=== PATIENT | female | born 1985 | race Caucasian/White ===

== ENCOUNTER 2017-01-10 12:10 | Inpatient (IN) | payer OTHER ==
[2017-01-10 13:05] VITALS: BMI 29.9
[2017-01-10] MEDS ORDERED: CITRIC ACID/SODIUM CITRATE 30 ML UNIT-DOSE CUP PO ONE (14:16)
[2017-01-10] MEDS ORDERED: ELECTROLYTE-148 SOLN 1,000 ML IV SCH (14:30)
--- NOTE | 2017-01-10 15:02 | HP ---
Past Medical History - Primary Care Physician PCP:: Trino Alonso - Admission Chief Complaint: 39 weeks ,previous c/s , request of repeat c/s History Source: Patient Limitations to Obtaining History: No Limitations - Past Medical History ...: 8 ...Para: 4 ...Term: 4 ...: 0 ...Spon : 1 ...Induced : 2 ...Multiple Gestation: 0 ...LMP: 04/11/16 ...EDC by Dates: 01/16/17 ...EDC by Sono: 01/17/17 Heme/Onc: Yes: Anemia - Past Surgical History Past Surgical History: Yes: Hx Myomectomy: No Hx Transabdominal Cerclage: No - Smoking History Smoking history: Former smoker Have you smoked in the past 12 months: No Aproximately how many cigarettes per day: 1 - Alcohol/Substance Use Hx Alcohol Use: No History of Substance Use: reports: Cocaine - Social History Usual Living Arrangement: Yes: With Spouse History of Recent Travel: No Home Medications - Allergies Allergies/Adverse Reactions: Allergies Allergy/AdvReac Type Severity Reaction Status Date / Time No Known Allergies Allergy Verified 01/08/17 13:37 - Home Medications Home Medications: Ambulatory Orders Vit/Iron Fumarate/FA [ Tablet] 1 tab PO DAILY 10/04/16 Family Disease History - Family Disease History Family Disease History: Other: Father ([employer]) Review of Systems - Review of Systems Eyes: reports: No Symptoms HENT: reports: No Symptoms Neck: reports: No Symptoms Cardiovascular: reports: No Symptoms Respiratory: reports: No Symptoms Genitourinary: reports: No Symptoms Breasts: reports: No Symptoms Reported Musculoskeletal: reports: No Symptoms Integumentary: reports: No Symptoms Endocrine: reports: No Symptoms Hematology/Lymphatic: reports: No Symptoms Psychiatric: reports: No Symptoms Physical Exam - Maternity Vital Signs: Vital Signs Temperature 98.2 F 01/10/17 12:37 Pulse Rate 88 01/10/17 12:37 Respiratory Rate 20 01/10/17 12:37 Blood Pressure 116/70 01/10/17 12:37 O2 Sat by Pulse Oximetry (%) - Abdominal Exam/OB Fundal Height: 40 Number of Fetuses: Single Presentation: Vertex Regularity: Irritability Intensity: Unaware Monitor Mode: External Heart Rate Location: [facility] Category: I Accelerations: Uniform Decelerations: None - Vaginal Exam/OB Vaginal Bleediing: No Dilatation (cm): closed Effacement (%): 0 Amniotic Membrane Status: Intact Presentation: Vertex/Position Station: -3 - Physical Exam Musculoskeletal: Yes: WNL Edema: Yes Edema: LLE: Trace, RLE: Trace Deep Tendon Reflex Grade: Normal +2 Psychiatric: Yes: WNL Hemorrhage Risk Assessment - Risk Factors Medium Risk Factors: Yes: Prior , uterine surgery,or multiple laparotomies Risk Score: 1 Risk Level: Medium Risk Problem List - Problems (1) with 39 completed weeks gestation Code(s): Z3A.39 - 39 WEEKS GESTATION OF (2) Previous section complicating Code(s): O34.21 - MATERNAL CARE FOR SCAR FROM PREVIOUS * DO NOT USE * Assessment/Plan admit for repeat c/s rba discussed
[2017-01-10] MEDS ORDERED: METHYLERGONOVINE MALEATE 0.2 MG/1 ML AMP IM PRN (15:05)
[2017-01-10] MEDS ORDERED: BENZOCAINE 28 GM HEMORRHOIDAL OINTMENT PR PRN (15:05)
[2017-01-10] MEDS ORDERED: IBUPROFEN 800 MG/8 ML IJ IVPB PRN (15:05)
[2017-01-10] MEDS ORDERED: BENZOCAINE 20% 57 GM BOTTLE TP PRN (15:05)
[2017-01-10] MEDS ORDERED: WITCH HAZEL 50% (TUCKS) 40 PAD/JAR PAD TP PRN (15:05)
[2017-01-10] MEDS ORDERED: diphenhydrAMINE HCL 25 MG CAPSULE (FP) PO PRN (15:05)
[2017-01-10] MEDS ORDERED: DEXTROSE 5%-LACTATED RINGERS 1,000 ML IV SCH (15:15)
[2017-01-10] MEDS ORDERED: OXYTOCIN 20 UNITS in 0.9% NS 1,000 ML IV SCH (15:15)
[2017-01-10 17:45] LABS: URINE MARIJUANA THC NEGATIVE ng/ml (CUTOFF=50)
[2017-01-10] MEDS: CEFAZOLIN (PRE-DOCKED) 50 ML IVPB SCH (18:03)
--- NOTE | 2017-01-10 18:30 | CON.PSY ---
Psychiatry Consult Chief Complaint: i am ok, I spoke to my therapiast, i am going to see them next week. i feel ok. - Previous Psychiatric Treatment Outpatient: Less than 6 mos ago Inpatient: Within the last 12 months, One prior admission - Previous Substance Abuse Treatment Outpatient: None Inpatient: None - Reason for Previous Treatment Reason for Previous Treatment: Major Depression - Family History Family History: Unremarkable - Current Medications Current Medications: Active Medications Benzocaine (Americaine Ointment -) 1 applic [place] PRN PRN PRN Reason: PAIN Benzocaine (Americaine 20% [place] -) 1 spray TP PRN PRN PRN Reason: PAIN Bisacodyl (Dulcolax Suppository -) 10 mg RC PRN PRN PRN Reason: CONSTIPATION Diphenhydramine HCl (Benadryl -) 25 mg PO Q8H PRN PRN Reason: FOR ITCHING Diphtheria/Tetanus/Acell Pertussis (Boostrix -) 0.5 ml IM .ONCE ONE Stop: 01/11/17 18:01 Enoxaparin Sodium (Lovenox -) 40 mg SQ DAILY [facility] Parenteral Electrolytes (Plasma-Lyte 148 -) 1,000 mls @ 125 mls/hr IV ASDIR [facility] Last Admin: 01/10/17 12:15 Dose: 125 mls/hr Cefazolin Sodium (Ancef 1gm Ivpb (Pre-Docked)) 50 mls @ 100 mls/hr IVPB Q8H-IV [facility] Stop: 01/11/17 02:29 Last Admin: 01/10/17 18:03 Dose: 100 mls/hr Dextrose/Lactated Ringer's (D5-Lr -) 1,000 mls @ 125 mls/hr IV ASDIR [facility] Oxytocin/Sodium Chloride (Normal Saline+20 Units Oxytocin -) 1,000 mls @ 125 mls/hr IV ASDIR EDDA Stop: 01/10/17 23:14 Last Admin: 01/10/17 15:38 Dose: 125 mls/hr Ibuprofen (Motrin -) 600 mg PO Q4H PRN PRN Reason: PAIN Ibuprofen (Caldolor Injection -) 800 mg IVPB Q6H PRN PRN Reason: PAIN Stop: 01/11/17 03:06 Methylergonovine Maleate (Methergine Injection -) 0.2 mg IM Q4H PRN PRN Reason: EXCESSIVE BLEEDING Oxycodone HCl (Roxicodone -) 5 mg PO Q4H PRN PRN Reason: PAIN LEVEL 1-5 Oxycodone HCl (Roxicodone -) 10 mg PO Q4H PRN PRN Reason: PAIN LEVEL 6-10 Multivit/Folic Acid/Iron ( Vitamins (Sjr) -) 1 tab PO DAILY EDDA Senna/Docusate Sodium (Pericolace -) 2 tablet PO HS PRN PRN Reason: CONSTIPATION Simethicone (Mylicon -) 80 mg PO Q4H PRN PRN Reason: GAS Witch Oralia/Glycerin (Tucks Pads -) 1 pad TP PRN PRN PRN Reason: PAIN - Allergies Allergies: Allergies Allergy/AdvReac Type Severity Reaction Status Date / Time No Known Allergies Allergy Verified 01/08/17 13:37 - Current Living Status Usual Living Arrangement: With Spouse - Current Mental Status Evaluation Appearance: Well Groomed Attitude: Cooperative - Affect Affect: Constrictive Appropriateness: Appropriate to Content - Mood Mood: Euthymic - Speech/Language Expressive: Coherent - Psychomotor Activity Psychomotor Activity: Slowed - Thought Process Thought Process: Intact - Thought Content Hallucinations: Absent Delusions: Absent - Self Perception Self Perception: No Impairment - Cognition Attention: Alert Orientation: Time Memory, Immediate Recall: Intact Memory, Short Term: 3/3 Memory, Remote with Promptin/3 - Concentration Serial Sevens Intact: Yes Simple Calculations Intact: Yes - Abstraction Proverb Interpretation: Intact Judgement: Intact - Insight Insight: Intact - Impulse Control Impulse Control: Good Control - Suicidal Ideation Suicidal Ideation: No - Homicidal Ideation Homicidal Ideation: No Assessment/Plan 1) No psych meds needed now2) she will follow up with her therapist at [facility]>
[2017-01-11] MEDS: CEFAZOLIN (PRE-DOCKED) 50 ML IVPB SCH (01:32)
--- NOTE | 2017-01-11 08:16 | PN ---
Progress Note (short form) - Note Progress Note: pod 1 doing well, has mild low abdominal discomfort Last Vital Signs Temp Pulse Resp BP Pulse Ox 97.5 F L 70 20 95/56 100 01/11/17 06:00 01/11/17 06:00 01/11/17 06:00 01/11/17 06:00 01/10/17 15:20 abdomen soft, no distension, no cva incision dry. clean no calf tenderness no excess vaginal bleeding plan ambulate, cbc, advance diet Problem List - Problems (1) with 39 completed weeks gestation Code(s): Z3A.39 - 39 WEEKS GESTATION OF (2) Previous section complicating Code(s): O34.21 - MATERNAL CARE FOR SCAR FROM PREVIOUS * DO NOT USE *
[2017-01-11 08:55] LABS: BASOPHIL 0.3 % (0-2.0); EOSINOPHIL 0.7 % (0-4.5); MCH 27.2 pg (25.7-33.7); MCHC 33.2 g/dl (32.0-36.0); MEAN CELL VOLUME 81.7 fl (80-96); MEAN PLT VOLUME 8.6 fl (7.5-11.1); NEUTROPHILS 75.1 % (42.8-82.8); PLATELET COUNT 154 K/MM3 (134-434); WHITE BLOOD COUNT 6.7 K/mm3 (4.0-10.0)
[2017-01-11] MEDS: ENOXAPARIN NA (PORCINE) 40 MG/0.4 ML DISP.SYRIN SQ SCH (09:57)
[2017-01-11] MEDS ORDERED: DIPHTH,PERTUSS(ACELL),TET 0.5 ML DISP.SYRIN IM ONE (10:00)
[2017-01-11] MEDS: PRENATAL VITAMINS W/ FOLIC ACID TABLET (FP) PO SCH (10:51)
[2017-01-11] MEDS: oxyCODONE HCL 5 MG TABLET PO PRN ×3 (11:42→23:05)
[2017-01-11] MEDS: IBUPROFEN 600 MG TABLET (FP) PO PRN ×2 (11:43→21:16)
[2017-01-11] MEDS: SIMETHICONE 80 MG TAB.CHEW (FP) PO PRN ×2 (11:45→21:16)
[2017-01-11] MEDS ORDERED: BISACODYL 10 MG SUPP.RECT RC PRN (15:05)
--- NOTE | 2017-01-11 17:43 | PN ---
Progress Note, Physician Chief Complaint: Pt. ambulating and voiding, pain controlled, no anesthesia complaints. - Current Medication List Current Medications: Active Medications Benzocaine (Americaine Ointment -) 1 applic [place] PRN PRN PRN Reason: PAIN Benzocaine (Americaine 20% [place] -) 1 spray TP PRN PRN PRN Reason: PAIN Bisacodyl (Dulcolax Suppository -) 10 mg RC PRN PRN PRN Reason: CONSTIPATION Diphenhydramine HCl (Benadryl -) 25 mg PO Q8H PRN PRN Reason: FOR ITCHING Enoxaparin Sodium (Lovenox -) 40 mg SQ DAILY [facility] Last Admin: 01/11/17 09:57 Dose: 40 mg Parenteral Electrolytes (Plasma-Lyte 148 -) 1,000 mls @ 125 mls/hr IV ASDIR [facility] Last Admin: 01/10/17 12:15 Dose: 125 mls/hr Dextrose/Lactated Ringer's (D5-Lr -) 1,000 mls @ 125 mls/hr IV ASDIR [facility] Ibuprofen (Motrin -) 600 mg PO Q4H PRN PRN Reason: PAIN Last Admin: 01/11/17 11:43 Dose: 600 mg Methylergonovine Maleate (Methergine Injection -) 0.2 mg IM Q4H PRN PRN Reason: EXCESSIVE BLEEDING Oxycodone HCl (Roxicodone -) 5 mg PO Q4H PRN PRN Reason: PAIN LEVEL 1-5 Last Admin: 01/11/17 11:42 Dose: 5 mg Oxycodone HCl (Roxicodone -) 10 mg PO Q4H PRN PRN Reason: PAIN LEVEL 6-10 Multivit/Folic Acid/Iron ( Vitamins (Sjr) -) 1 tab PO DAILY [facility] Last Admin: 01/11/17 10:51 Dose: Not Given Senna/Docusate Sodium (Pericolace -) 2 tablet PO HS PRN PRN Reason: CONSTIPATION Simethicone (Mylicon -) 80 mg PO Q4H PRN PRN Reason: GAS Last Admin: 01/11/17 11:45 Dose: 80 mg Witch Oralia/Glycerin (Tucks Pads -) 1 pad TP PRN PRN PRN Reason: PAIN - Objective Vital Signs: Vital Signs Temperature 97.5 F L 01/11/17 14:00 Pulse Rate 79 01/11/17 14:00 Respiratory Rate 20 01/11/17 14:00 Blood Pressure 108/61 01/11/17 14:00 O2 Sat by Pulse Oximetry (%) 100 01/10/17 15:20 Constitutional: Yes: Well Nourished, No Distress, Calm Musculoskeletal: Yes: WNL Neurological: Yes: WNL, Alert, Oriented ...Motor Strength: WNL Labs: CBC, BMP 01/11/17 08:20 Assessment/Plan POD#1 s/p repeat under spinal with duramorph. Doing well. D/C from anesthesia care.
[2017-01-12] MEDS: SIMETHICONE 80 MG TAB.CHEW (FP) PO PRN ×3 (02:07→19:11)
[2017-01-12] MEDS: IBUPROFEN 600 MG TABLET (FP) PO PRN ×3 (02:08→19:11)
[2017-01-12] MEDS: oxyCODONE HCL 5 MG TABLET PO PRN ×3 (02:08→19:12)
--- NOTE | 2017-01-12 08:37 | PN ---
Post Progress Note - Subjective Subjective: no c/o pain, c/o itching . she has not voided since torres is taken out Post Day: 1 Type of Delivery: Repeat C/S Vital Signs: Vital Signs Temperature 97.2 F L 01/11/17 22:00 Pulse Rate 82 01/11/17 22:00 Respiratory Rate 18 01/11/17 22:00 Blood Pressure 111/64 01/11/17 22:00 O2 Sat by Pulse Oximetry (%) 100 01/10/17 15:20 Breast Exam: Yes: Soft, Other (plans to bottle & BF ). No: Engorged Uterus: Yes: Fundus Firm, Fundus below umbilicus Incision: Yes: Dressing dry and intact. No: Redness, Oozing Abdomen/GI: Yes: Abdomen soft, Tolerating PO (clear liquids ). No: Abdominal Distention, Tender, Passing flatus Lochia: Yes: Rubra Lochia, amount: Moderate Extremities: Yes: Calves non-tender Perineum: Yes: Intact Activity: Ambulating - Labs Labs: CBC WBC 6.7 K/mm3 (4.0-10.0) 01/11/17 08:20 RBC 4.12 M/mm3 (3.60-5.2) 01/11/17 08:20 Hgb 11.2 GM/dL (10.7-15.3) 01/11/17 08:20 Hct 33.7 % (32.4-45.2) 01/11/17 08:20 MCV 81.7 fl (80-96) 01/11/17 08:20 MCHC 33.2 g/dl (32.0-36.0) 01/11/17 08:20 RDW 14.0 % (11.6-15.6) 01/11/17 08:20 Plt Count 154 K/MM3 (134-434) 01/11/17 08:20 MPV 8.6 fl (7.5-11.1) 01/11/17 08:20 Neutrophils % 75.1 % (42.8-82.8) 01/11/17 08:20 Lymphocytes % 17.3 % (8-40) 01/11/17 08:20 Monocytes % 6.6 % (3.8-10.2) 01/11/17 08:20 Eosinophils % 0.7 % (0-4.5) 01/11/17 08:20 Basophils % 0.3 % (0-2.0) 01/11/17 08:20 Other Findings, Remarks: RS cta Assessment/Plan stable plan ct po care
[2017-01-12] MEDS: ENOXAPARIN NA (PORCINE) 40 MG/0.4 ML DISP.SYRIN SQ SCH (09:14)
[2017-01-12] MEDS: PRENATAL VITAMINS W/ FOLIC ACID TABLET (FP) PO SCH (09:14)
[2017-01-12] MEDS ORDERED: SENNOSIDES/DOCUSATE COMBO (SENNA PLUS) TABLET (UD) PO PRN (22:00)
[2017-01-13 07:35] LABS: BASOPHIL 0.4 % (0-2.0); EOSINOPHIL 2.4 % (0-4.5); MCH 27.4 pg (25.7-33.7); MCHC 33.5 g/dl (32.0-36.0); MEAN CELL VOLUME 81.8 fl (80-96); NEUTROPHILS 57.2 % (42.8-82.8); PLATELET COUNT 192 K/MM3 (134-434); RDW 14.3 % (11.6-15.6); WHITE BLOOD COUNT 6.1 K/mm3 (4.0-10.0)
--- NOTE | 2017-01-13 08:33 | SURG ---
Surgery Luggage Repairer Note Luggage Repairer: Annalise Pitt PA-C Date of Service: 01/10/17 Diagnosis: 39 weeks, previous c/s, request of repeat c/s Procedure: repeat I was present for the entirety of the operative procedure. For further detail, please refer to operative report. Visit type - Case Type Case Type: Scheduled Admission - New patient This patient is new to me today: Yes Date on this admission: 01/10/17
[2017-01-13 08:34] VITALS: BP 107/61; PULSE 76; TEMP 98.1
--- NOTE | 2017-01-13 08:56 | PN ---
Post Progress Note Post Day: 2 Type of Delivery: Repeat C/S Vital Signs: Vital Signs Temperature 98.1 F 01/13/17 07:15 Pulse Rate 76 01/13/17 07:15 Respiratory Rate 20 01/13/17 07:15 Blood Pressure 107/61 01/13/17 07:15 O2 Sat by Pulse Oximetry (%) 100 01/10/17 15:20 Breast Exam: Yes: Soft Uterus: Yes: Fundus Firm Incision: Yes: Sutures intact Abdomen/GI: Yes: Abdomen soft Lochia: Yes: Rubra Lochia, amount: Small Extremities: Yes: Calves non-tender Perineum: Yes: Intact Activity: Ambulating - Labs Labs: CBC WBC 6.1 K/mm3 (4.0-10.0) 01/13/17 06:00 RBC 3.93 M/mm3 (3.60-5.2) 01/13/17 06:00 Hgb 10.8 GM/dL (10.7-15.3) 01/13/17 06:00 Hct 32.2 % (32.4-45.2) L 01/13/17 06:00 MCV 81.8 fl (80-96) 01/13/17 06:00 MCHC 33.5 g/dl (32.0-36.0) 01/13/17 06:00 RDW 14.3 % (11.6-15.6) 01/13/17 06:00 Plt Count 192 K/MM3 (134-434) D 01/13/17 06:00 MPV 8.0 fl (7.5-11.1) 01/13/17 06:00 Neutrophils % 57.2 % (42.8-82.8) D 01/13/17 06:00 Lymphocytes % 32.4 % (8-40) D 01/13/17 06:00 Monocytes % 7.6 % (3.8-10.2) 01/13/17 06:00 Eosinophils % 2.4 % (0-4.5) D 01/13/17 06:00 Basophils % 0.4 % (0-2.0) 01/13/17 06:00 Assessment/Plan doing well oob consider dc later today if stable
[2017-01-13] MEDS: ENOXAPARIN NA (PORCINE) 40 MG/0.4 ML DISP.SYRIN SQ SCH (09:06)
[2017-01-13] MEDS: PRENATAL VITAMINS W/ FOLIC ACID TABLET (FP) PO SCH (09:07)
[2017-01-13] MEDS: oxyCODONE HCL 5 MG TABLET PO PRN (11:58)
[2017-01-13] MEDS: IBUPROFEN 600 MG TABLET (FP) PO PRN (12:00)
[2017-01-13] MEDS: SIMETHICONE 80 MG TAB.CHEW (FP) PO PRN (12:00)
--- NOTE | 2017-01-13 16:13 | DS ---
Physical Exam-SHIPPING CHECKER Vital Signs: Vital Signs Temperature 98.1 F 01/13/17 07:15 Pulse Rate 76 01/13/17 07:15 Respiratory Rate 20 01/13/17 07:15 Blood Pressure 107/61 01/13/17 07:15 O2 Sat by Pulse Oximetry (%) 100 01/10/17 15:20 Constitutional: Yes: Well Nourished, No Distress, Calm Eyes: Yes: WNL, Conjunctiva Clear, EOM Intact HENT: Yes: WNL, Atraumatic, Normocephalic Neck: Yes: WNL, Supple, Trachea Midline Cardiovascular: Yes: WNL, Regular Rate and Rhythm Respiratory: Yes: WNL, Regular, CTA Bilaterally Gastrointestinal: Yes: WNL ...Rectal Exam: Yes: WNL Renal/: Yes: WNL ....Post : Yes: Uterus firm, Uterus non-tender, Slight lochia rubra Breast(s): Yes: WNL Musculoskeletal: Yes: WNL Extremities: Yes: WNL Integumentary: Yes: WNL Wound/Incision: Yes: Clean/Dry, Well Approximated, Sutures Intact Neurological: Yes: WNL, Alert, Oriented ...Motor Strength: WNL Psychiatric: Yes: WNL, Alert, Oriented Labs: CBC, BMP 01/13/17 06:00 Delivery - Delivery Section: Repeat, Low Flap Transverse (no complication) Type of Anesthesia: Spinal Episiotomy/Laceration: None EBL (cc): 500 Delivery, Single - Stages of Labor Date of Delivery: 01/10/17 Time of Delivery: 14:40 Time Placenta Delivered: 14:41 Placenta: Yes: Manual Removal - Condition of Truck Body Repairer/Biology Manager Present: Yes Name: Groening,[place] Infant Gender: Male Weight: 7 lb 4 oz Position: Left, OT Total Hours ROM (Hrs/Mins): 0/1 - 1 Minute Total Score: 9 5 Minutes Total Score: 9 - Feeding Plan Initial Plan: Exclusive throughout hospitalization Discharge Summary Reason For Visit: SECTION Procedures: Principal: repeat lst c/s Condition: Good - Instructions Diet, Activity, Other Instructions: Call [facility] and make appt. to be seen in one week. [phone] If fever, pain or heavy bleeding, call M.D. If redness or drainage noted to incision, call M.D. Disposition: HOME - Home Medications Comprehensive Discharge Medication List: Ambulatory Orders Vit/Iron Fumarate/FA [ Tablet] 1 tab PO DAILY 10/04/16 Ibuprofen [Motrin -] 600 mg PO QID #28 tablet 01/13/17
--- NOTE | 2017-01-14 15:13 | PATH ---
Surgical Pathology Report Patient Name: JOSELIN CRUZ Med. Rec. #: [id number] /Age/Gender: 1985 (Age: 31) / F Account: [id number] Location: [facility] OBS/PHYSICIAN CODER Taken: 01/10/2017 Received: 01/12/2017 Reported: 01/14/2017 Physicians: Trino Alonso M.D. Specimen(s) Received PLACENTA Clinical History , history of depression, HSV-2, drug abuse, seizures, positive RPR titer x3, C/S x1 Final Diagnosis PLACENTA, DELIVERY: THIRD TRIMESTER PLACENTA WITH 3 VESSEL UMBILICAL CORD AND UNREMARKABLE PLACENTAL MEMBRANES. Electronically Signed Gio Prakash M.D. Gross Description The specimen is received fresh labeled placenta and is a 430 gram, 18 x 13 x up to 2.5 cm. placenta with attached membranes and umbilical cord. The attached membranes are glistening and translucent and insert marginally. The umbilical cord measures 35 cm. in length and averages 1.3 cm. in diameter. The cord inserts centrally, 7 cm. to the nearest margin. No true knots or strictures are identified. Cut surface of the umbilical cord reveals 3 vessels. The surface is galo-blue with minimal fibrin deposition and appropriate caliber vessels. The maternal surface is lobulated and appears complete with no adherent blood clots or areas of thinning. Sectioning reveals red-brown, spongy parenchyma. No lesions are identified. Ged Preparation Teacher sections are submitted in three cassettes as follows: 1- membrane rolls and umbilical cord; 2-3- full thickness sections of placenta. _ [facility]/01/13/2017 [facility]/01/13/2017
== END 2017-01-13 13:25 | disposition home or self-care (01) | DRG 540 ==
LOC: JLDR 12:10 → J3W 17:00
PROVIDERS: ADMIT Obstetrics & Gynecology; ATTEND Obstetrics & Gynecology
PROC: 10D00Z1 Extraction of Products of Conception, Low, Open Approach (ICD-10-PCS; principal; 2017-01-10)
DX: O34.211 Maternal care for low transverse scar from previous cesarean delivery (principal); Z3A.39 39 weeks gestation of pregnancy; Z37.0 Single live birth
CPT/HCPCS: 36415; 80307; 85025; 88307-TC; 90715

== ENCOUNTER → 2018-01-15 | Emergency (ER) | payer OTHER ==
[2018-01-15 01:05] LABS: BASO % 0.5 % (0-2.0); EOS % 0.6 % (0-4.5); HEMATOCRIT 36.9 % (32.4-45.2); HEMOGLOBIN 12.6 GM/dL (10.7-15.3); MCH 29.2 pg (25.7-33.7); MCHC 34.2 g/dl (32.0-36.0); MEAN CELL VOLUME 85.4 fl (80-96); MEAN PLT VOLUME 7.8 fl (7.5-11.1); MONO % 6.2 % (3.8-10.2); NEUT % 68.7 % (42.8-82.8); PLATELET COUNT 255 K/MM3 (134-434); RBC 4.33 M/mm3 (3.60-5.2); RDW 13.5 % (11.6-15.6); WHITE BLOOD COUNT 9.3 K/mm3 (4.0-10.0)
[2018-01-15 01:07] VITALS: BP 126/83; PULSE 101; TEMP 98.7; BMI 32.0
[2018-01-15 01:30] LABS: ALBUMIN 3.8 g/dl (3.4-5.0); ANION GAP 13 (8-16); BILIRUBIN,TOTAL 0.3 mg/dL (0.2-1.0); BLOOD UREA NITROGEN 13 mg/dL (7-18); CALCIUM 8.4 mg/dL (8.5-10.1); CHLORIDE 104 mmol/L (98-107); CO2 22 mmol/L (21-32); CREATININE 1.1 mg/dL (0.55-1.02); GLUCOSE,RANDOM 116 mg/dL (74-106); SGOT/AST 21 U/L (15-37); SGPT/ALT 17 U/L (12-78); SODIUM 139 mmol/L (136-145); TOT PROT 7.6 g/dl (6.4-8.2)
[2018-01-15 01:31] LABS: ALK PHOS 74 U/L (45-117)
[2018-01-15 01:48] LABS: ACETAMINOPHEN 2.696 ug/mL
--- NOTE | 2018-01-15 01:49 | PDOC ---
History of Present Illness - General Chief Complaint: Seizure Stated Complaint: SEIZURE Time Seen by Provider: 01/15/18 00:55 History Source: Other (father/boyfriend) - History of Present Illness Initial Comments: 01/15/18 01:47 Best Contact: /Gastron/father Pmhx: Bipolar, EtOH abuse Pshx:10/2016/C section Allergies:NKDA Recreational drugs: Heroin/crack/marijuana 32-year-old female presents to the emergency department requesting for detox. Patient states she called her [id number] this evening to have him drive her. Patient states she got upset this evening and was hyperventilating. Patient denies LOC, headache, dizziness, lightheadedness, facial pains, nasal congestion, neck pain/stiffness, back pains, chest pain, shortness of breath, abdominal pains, flank pains, urinary symptoms. Patient states she had marijuana and heroin earlier this evening. Past History - Past Medical History Allergies/Adverse Reactions: Allergies Allergy/AdvReac Type Severity Reaction Status Date / Time No Known Allergies Allergy Verified 01/15/18 00:58 Home Medications: Ambulatory Orders Vit/Iron Fum/Folic AC [ Tablet] 1 tab PO DAILY 10/04/16 Ibuprofen [Motrin -] 600 mg PO QID #28 tablet 01/13/17 Cephalexin Monohydrate [Keflex -] 500 mg PO BID #14 capsule 01/13/18 Cephalexin [Keflex] 500 mg PO BID #13 capsule 01/13/18 Anemia: No Asthma: No Cancer: No Cardiac Disorders: No CVA: No COPD: No CHF: No Dementia: No Diabetes: No GI Disorders: No Disorders: No HTN: No Hypercholesterolemia: No Kidney Stones: No Liver Disease: No Seizures: Yes (2 YEARS AGO) Thyroid Disease: No - Surgical History Abdominal Surgery: No Appendectomy: No Cardiac Surgery: No Cholecystectomy: No Lung Surgery: No Neurologic Surgery: No Orthopedic Surgery: No - Reproductive History PID: No - Suicide/Smoking/Psychosocial Hx Smoking Status: No Smoking History: Never smoked Have you smoked in the past 12 months: No Number of Cigarettes Smoked Daily: 1 Information on smoking cessation initiated: No 'Breaking Loose' booklet given: 10/10/15 Hx Alcohol Use: (unknown) Drug/Substance Use Hx: (unknown) Substance Use Type: Alcohol, Cocaine, Opiates, Tranquilizers Hx Substance Use Treatment: No Review of Systems - Review of Systems Able to Perform ROS?: Yes Comments:: 01/15/18 01:49 CONSTITUTIONAL: Absent: fever, chills, diaphoresis, generalized weakness, malaise, loss of appetite HEENT: Absent: rhinorrhea, nasal congestion, throat pain, throat swelling, difficulty swallowing, mouth swelling, ear pain, eye pain, visual Changes CARDIOVASCULAR: Absent: chest pain, loss of consciousness, palpitations, irregular heart rate, peripheral edema RESPIRATORY: Absent: cough, shortness of breath, dyspnea with exertion, orthopnea, wheezing, stridor, hemoptysis GASTROINTESTINAL: Absent: abdominal pain, abdominal distension, nausea, vomiting, diarrhea, constipation, melena, hematochezia GENITOURINARY: Absent: dysuria, frequency, urgency, hesitancy, hematuria, flank pain, genital pain MUSCULOSKELETAL: Absent: myalgia, arthralgia, joint swelling SKIN: Absent: rash, itching, pallor HEMATOLOGIC/IMMUNOLOGIC: Absent: easy bleeding, easy bruising, lymphadenopathy, frequent infections ENDOCRINE: Absent: unexplained weight gain, unexplained weight loss, heat intolerance, cold intolerance NEUROLOGIC: Absent: headache, focal weakness or paresthesias, dizziness, unsteady gait, seizure, mental status changes, bladder or bowel incontinence PSYCHIATRIC: Absent: anxiety, depression, suicidal or homicidal ideation, hallucinations. Is the patient limited Mohawk proficient: No *Physical Exam - Vital Signs Last Vital Signs Temp Pulse Resp BP Pulse Ox 98.7 F 101 H 18 126/83 100 01/15/18 00:58 01/15/18 00:58 01/15/18 00:58 01/15/18 00:58 01/15/18 00:58 - Physical Exam Comments: 01/15/18 01:49 GENERAL: Well developed, well nourished. Awake and alert. No acute distress. HEENT: Normocephalic, atraumatic. PERRLA, EOMI. No conjunctival pallor. Sclera are non- icteric. Moist mucous membranes. Oropharynx is clear. NECK: Supple. Full ROM. No JVD. Carotid pulses 2+ and symmetric, without bruits. No thyromegaly. No lymphadenopathy. CARDIOVASCULAR: Regular rate and rhythm. No murmurs, rubs, or gallops. Distal pulses are 2+ and symmetric. PULMONARY: No evidence of respiratory distress. Lungs clear to auscultation bilaterally. No wheezing, rales or rhonchi. ABDOMINAL: Soft. Non-tender. Non-distended. No rebound or guarding. No organomegaly. Normoactive bowel sounds. MUSCULOSKELETAL Normal range of motion at all joints. No bony deformities or tenderness. No CVA tenderness. EXTREMITIES: No cyanosis. No clubbing. No edema. No calf tenderness. SKIN: Warm and dry. Normal capillary refill. No rashes. No jaundice. NEUROLOGICAL: Alert, awake, appropriate. Cranial nerves 2-12 intact. No deficits to light touch and temperature in face, upper extremities and lower extremities. No motor deficits in the in face, upper extremities and lower extremities. Normoreflexic in the upper and lower extremities. Normal speech. Toes are down- going bilaterally. Gait is normal without ataxia. PSYCHIATRIC: Cooperative. Good eye contact. Appropriate mood and affect. ED Treatment Course - LABORATORY CBC & Chemistry Diagram: 01/15/18 01:00 01/15/18 01:00 - ADDITIONAL ORDERS Additional order review: Laboratory Results 01/15/18 01:00 Sodium 139 Potassium 4.0 Chloride 104 Carbon Dioxide 22 Anion Gap 13 BUN 13 Creatinine 1.1 H Creat Clearance w eGFR 57.56 Random Glucose 116 H Calcium 8.4 L Total Bilirubin 0.3 AST 21 ALT 17 Alkaline Phosphatase 74 Total Protein 7.6 Albumin 3.8 Alcohol, Quantitative 12.26 H* 01/15/18 01:00 RBC 4.33 MCV 85.4 MCHC 34.2 RDW 13.5 MPV 7.8 Neutrophils % 68.7 D Lymphocytes % 24.0 D Monocytes % 6.2 Eosinophils % 0.6 Basophils % 0.5 *DC/Admit/Observation/Transfer Diagnosis at time of Disposition: Alcohol abuse - Discharge Dispostion Disposition: ELOPED - Referrals - Patient Instructions - Post Discharge Activity
[2018-01-15 02:15] LABS: SALICYLATE < 1.700 mg/dL
--- NOTE | 2018-01-18 01:13 | EKG ---
Test Reason : Blood Pressure : / mmHG Vent. Rate : 107 BPM Atrial Rate : 107 BPM P-R Int : 142 ms QRS Dur : 078 ms QT Int : 366 ms P-R-T Axes : 060 037 041 degrees QTc Int : 488 ms SINUS TACHYCARDIA OTHERWISE NORMAL ECG WHEN COMPARED WITH ECG OF 13-JAN-2018 01:25, NO SIGNIFICANT CHANGE WAS FOUND Confirmed by LAUREN MENDOZA MD ([id number]) on 01/18/2018 1:13:23 AM Referred By: Confirmed By:LAUREN MENDOZA MD
== END | disposition left against medical advice (07) ==
LOC: JER 00:51
DX: F10.10 Alcohol abuse, uncomplicated (principal)
CPT/HCPCS: 36415; 80053; 80307; 85025; 93005; 93010; 99282-25

== ENCOUNTER 2018-02-20 09:48 | Emergency (ER) | payer OTHER ==
[2018-02-20 09:54] VITALS: BMI 32.0
[2018-02-20] MEDS ORDERED: SODIUM CHLORIDE 0.9% 1000 ML INFUS.BAG IV ONE (10:37)
[2018-02-20 10:57] LABS: URINE APPEARANCE CLOUDY; URINE BILIRUBIN NEGATIVE (<2.0 mg/dL); URINE BLOOD NEGATIVE (NEGATIVE); URINE COLOR LTYELLOW; URINE GLUCOSE (UA) NEGATIVE (NEGATIVE); URINE KETONE NEGATIVE (NEGATIVE); URINE LEUK ESTERASE NEGATIVE (NEGATIVE); URINE NITRITE NEGATIVE (NEGATIVE); URINE PROTEIN NEGATIVE (NEGATIVE); URINE UROBILINOGEN NEGATIVE mg/dL (0.2-1.0)
[2018-02-20 11:36] LABS: BASO % 0.5 % (0-2.0); EOS % 2.1 % (0-4.5); HEMATOCRIT 37.9 % (32.4-45.2); HEMOGLOBIN 12.9 GM/dL (10.7-15.3); LYMPH % 34.2 % (8-40); MCH 29.1 pg (25.7-33.7); MCHC 34.1 g/dl (32.0-36.0); MEAN CELL VOLUME 85.2 fl (80-96); MONO % 6.8 % (3.8-10.2); NEUT % 56.4 % (42.8-82.8); PLATELET COUNT 218 K/MM3 (134-434); RBC 4.45 M/mm3 (3.60-5.2); RDW 13.7 % (11.6-15.6); WHITE BLOOD COUNT 5.9 K/mm3 (4.0-10.0)
[2018-02-20 12:09] LABS: ALBUMIN 3.4 g/dl (3.4-5.0); ALK PHOS 82 U/L (45-117); ANION GAP 6 (8-16); BILIRUBIN,TOTAL 0.2 mg/dL (0.2-1.0); BLOOD UREA NITROGEN 13 mg/dL (7-18); CALCIUM 8.1 mg/dL (8.5-10.1); CHLORIDE 109 mmol/L (98-107); CO2 25 mmol/L (21-32); CREATININE 0.7 mg/dL (0.55-1.02); GLUCOSE,RANDOM 93 mg/dL (74-106); MAGNESIUM 2.1 mg/dL (1.8-2.4); POTASSIUM 3.9 mmol/L (3.5-5.1); SGOT/AST 23 U/L (15-37); SGPT/ALT 33 U/L (12-78); SODIUM 140 mmol/L (136-145); TOT PROT 6.8 g/dl (6.4-8.2)
--- NOTE | 2018-02-20 14:48 | PDOC ---
History of Present Illness - General Chief Complaint: Head/Neck problem Stated Complaint: NUMBNESS History Source: Patient Exam Limitations: No Limitations - History of Present Illness Initial Comments: 02/20/18 14:43 32-year-old female with a history of substance abuse here today on her way to to [facility] for detox complaining of paresthesia in both upper extremities. Patient states she woke up with tingling in both of her arms has no history of prior similar symptoms no new weakness. No tingling noted in other extremities. Describes it as patchy up and down both lower extremities denies headache no vision changes no change to her speech no recent fevers chills no chest pain or shortness of breath. Past History - Past Medical History Allergies/Adverse Reactions: Allergies Allergy/AdvReac Type Severity Reaction Status Date / Time No Known Allergies Allergy Verified 02/20/18 09:49 Home Medications: Ambulatory Orders Gabapentin [Neurontin -] 500 mg PO TID 02/20/18 Ibuprofen [Motrin -] 600 mg PO QID PRN 02/20/18 Mirtazapine 7.5 mg PO DAILY 02/20/18 Anemia: No Asthma: No Cancer: No Cardiac Disorders: No CVA: No COPD: No CHF: No DVT: No Dementia: No Diabetes: No GI Disorders: No Disorders: No HTN: No Hypercholesterolemia: No Kidney Stones: No Liver Disease: No Psychiatric Problems: Yes (depression) Seizures: Yes (2 YEARS AGO) Thyroid Disease: No - Surgical History Abdominal Surgery: No Appendectomy: No Cardiac Surgery: No Cholecystectomy: No Lung Surgery: No Neurologic Surgery: No Orthopedic Surgery: No - Reproductive History PID: No - Suicide/Smoking/Psychosocial Hx Smoking Status: No Smoking History: Never smoked Have you smoked in the past 12 months: No Number of Cigarettes Smoked Daily: 1 Information on smoking cessation initiated: No 'Breaking Loose' booklet given: 10/10/15 Hx Alcohol Use: No (unknown) Drug/Substance Use Hx: No (unknown) Substance Use Type: Alcohol, Cocaine, Marijuana, Opiates, Tranquilizers Hx Substance Use Treatment: No Review of Systems - Review of Systems Able to Perform ROS?: Yes Constitutional: No: Chills, Diaphoresis, Fever Respiratory: No: Cough, Orthopnea Cardiac (ROS): No: Chest Pain, Edema Musculoskeletal: No: Back Pain, Joint Pain, Muscle Weakness Integumentary: No: Bruising Neurological: Yes: Paresthesia. No: Headache, Numbness, Weakness All Other Systems: Reviewed and Negative *Physical Exam - Vital Signs Last Vital Signs Temp Pulse Resp BP Pulse Ox 98.0 F 82 18 137/64 100 02/20/18 09:50 02/20/18 09:50 02/20/18 09:50 02/20/18 09:50 02/20/18 09:50 - Physical Exam General Appearance: Yes: Appropriately Dressed Neck: positive: Trachea midline Respiratory/Chest: positive: Lungs Clear, Normal Breath Sounds Cardiovascular: positive: Regular Rhythm, Regular Rate, S1, S2. negative: Edema Gastrointestinal/Abdominal: negative: Normal Bowel Sounds, Tender, Flat Musculoskeletal: positive: Normal Inspection. negative: CVA Tenderness, CVA Tenderness (R) Extremity: positive: Normal Capillary Refill, Normal Inspection, Normal Range of Motion Integumentary: positive: Normal Color, Dry, Warm Neurologic: positive: correctional facility nurse II-XII NML intact, Fully Oriented, Alert, Normal Mood/ Affect, Motor Strength 5/5, Other (sensation intact throughout. upper ext 5/5. med/uln/rad n. intact. no mildline spinal tenderness.) ED Treatment Course - LABORATORY CBC & Chemistry Diagram: 02/20/18 11:28 02/20/18 11:28 - ADDITIONAL ORDERS Additional order review: Laboratory Results 02/20/18 02/20/18 02/20/18 11:28 11:28 10:49 Sodium 140 Potassium 3.9 Chloride 109 H Carbon Dioxide 25 Anion Gap 6 L BUN 13 Creatinine 0.7 Creat Clearance w eGFR > 60 Random Glucose 93 Calcium 8.1 L Magnesium Cancelled 2.1 Total Bilirubin 0.2 D AST 23 ALT 33 Alkaline Phosphatase 82 Total Protein 6.8 Albumin 3.4 Urine Color Ltyellow Urine Appearance Cloudy Urine pH 6.0 Ur Specific [place] 1.011 Urine Protein Negative Urine Glucose (UA) Negative Urine Ketones Negative Urine Blood Negative Urine Nitrite Negative Urine Bilirubin Negative Urine Urobilinogen Negative Ur Leukocyte Esterase Negative Urine HCG, Qual 02/20/18 10:49 Sodium Potassium Chloride Carbon Dioxide Anion Gap BUN Creatinine Creat Clearance w eGFR Random Glucose Calcium Magnesium Total Bilirubin AST ALT Alkaline Phosphatase Total Protein Albumin Urine Color Urine Appearance Urine pH Ur Specific [place] Urine Protein Urine Glucose (UA) Urine Ketones Urine Blood Urine Nitrite Urine Bilirubin Urine Urobilinogen Ur Leukocyte Esterase Urine HCG, Qual Negative 02/20/18 11:28 RBC 4.45 MCV 85.2 MCHC 34.1 RDW 13.7 MPV 8.0 Neutrophils % 56.4 Lymphocytes % 34.2 D Monocytes % 6.8 Eosinophils % 2.1 D Basophils % 0.5 - RADIOLOGY Radiology Studies Ordered: Category Date Time Status HEAD CT WITHOUT CONTRAST [CT] Stat CT Scan 02/20/18 10:37 Completed - Medications Given in the ED: ED Medications Discontinued Medications Generic Name Dose Route Start Last Admin Trade Name Freq PRN Reason Stop Dose Admin Sodium Chloride 1,000 ml 02/20/18 10:37 02/20/18 11:33 Normal Saline - IV 02/20/18 10:38 1,000 ml ONCE ONE Administration Medical Decision Making - Medical Decision Making 02/20/18 14:46 32-year-old female with patchy sensory changes to the upper extremities plan. CT had several intracranial pathology CBC to rule out anemia and UCG we'll treat with IV fluids and reassess. Patient's workup is unremarkable here feels much improved after IV fluids we'll discharge patient to [facility] for detox *DC/Admit/Observation/Transfer Diagnosis at time of Disposition: Paresthesia - Discharge Dispostion Disposition: HOME Condition at time of disposition: Improved - Referrals Referrals: Eugene Clark MD [Staff Physician] - - Patient Instructions Printed Discharge Instructions: DI for Numbness/tingling Additional Instructions: You should follow up with nuerologist. DR. Clark, see referral information to schedule. return for any worsening symptoms or concerns. - Post Discharge Activity
[2018-02-20 14:53] VITALS: BP 108/59; PULSE 90; TEMP 97.6
== END 2018-02-20 15:05 | disposition home or self-care (01) ==
LOC: JER 09:48
DX: R20.0 Anesthesia of skin (principal); F19.10 Other psychoactive substance abuse, uncomplicated; F32.9 Major depressive disorder, single episode, unspecified; Z86.69 Personal history of other diseases of the nervous system and sense organs
CPT/HCPCS: 36415; 70450-TC; 80053; 81003; 83735; 84703; 85025; 99282-25; J7030

== ENCOUNTER 2018-03-24 23:24 | Inpatient (IN) | payer OTHER ==
--- NOTE | 2018-03-25 01:10 | HP ---
COWS - Scale Resting Pulse: 4= MA > 121 Sweatin= Chills/Flushing Restless Observation: 1= Difficult to Sit Still Pupil Size: 1= Pupils >than Normal Bone or Joint Aches: 2= Severe Diffuse Aches Runny Nose/ Eye Tearin= Runny Nose/Eyes GI Upset > 30mins: 2= Nausea/Diarrhea Tremor Observation: 2= Slight Tremor Visible Yawning Observation: 0= None Anxiety or Irritability: 2=Irritable/Anxious Goose Flesh Skin: 0=Smooth Skin COWS Score: 17 Admission ROS S - HPI Chief Complaint: Alcohol withdrawal symptoms Allergies/Adverse Reactions: Allergies Allergy/AdvReac Type Severity Reaction Status Date / Time No Known Allergies Allergy Verified 02/20/18 09:49 History of Present Illness: 32 years old female with about 20 years of of opioid dependence is seeking admission to detox. Patient has been to previous detox and reports in significant period of sobriety. She has medical history of seizures, herpes and depression.She reports suicide attempt in December, and denies suicidal ideation at this time. Exam Limitations: No Limitations - Ebola screening Have you traveled outside of the country in the last 21 days: No Have you had contact with anyone from an Ebola affected area: No Have you been sick,other than usual withdrawal symptoms: No Do you have a fever: No - Review of Systems Constitutional: Chills, Malaise EENT: reports: No Symptoms Reported Respiratory: reports: No Symptoms reported Cardiac: reports: No Symptoms Reported GI: reports: Poor Appetite, Poor Fluid Intake, Abdominal cramping : reports: No Symptoms Reported Musculoskeletal: reports: Back Pain, Muscle Pain Integumentary: reports: See HPI, Dryness Neuro: reports: Tremors Endocrine: reports: No Symptoms Reported Hematology: reports: No Symptoms Reported Psychiatric: reports: Anxious, Depressed Other Systems: Reviewed and Negative Patient History - Patient Medical History Hx Anemia: No Hx Asthma: No Hx Chronic Obstructive Pulmonary Disease (COPD): No Hx Cancer: No Hx Cardiac Disorders: No Hx Congestive Heart Failure: No Hx Hypertension: No Hx Hypercholesterolemia: No Hx Pacemaker: No HX Cerebrovascular Accident: No Hx Seizures: Yes (2 YEARS AGO. Not on medication) Hx Dementia: No Hx Diabetes: No Hx Gastrointestinal Disorders: No Hx Liver Disease: No Hx Genitourinary Disorders: No Hx Sexually Transmitted Disorders: Yes (genital herpes;tx for syphillis.- Not on m edication) Hx Renal Disease (ESRD): No Hx Thyroid Disease: No Hx Human Immunodeficiency Virus (HIV): No Hx Hepatitis C: No Hx Depression: Yes (Gabapentin) Hx Suicide Attempt: No (DENIES) Hx Bipolar Disorder: No Hx Schizophrenia: No - Patient Surgical History Past Surgical History: Yes Hx Neurologic Surgery: No Hx Cataract Extraction: No Hx Cardiac Surgery: No Hx Lung Surgery: No Hx Breast Surgery: No Hx Breast Biopsy: No Hx Abdominal Surgery: No Hx Appendectomy: No Hx Cholecystectomy: No Hx Genitourinary Surgery: No Hx Section: Yes (x2) Hx Orthopedic Surgery: No Other Surgical History: TONSILLECTOMY 1999, plastic surgery to reconstruct L ear 1993-[facility] Anesthesia Reaction: No - PPD History Date: 08/24/15 Results: 0 mm PPD to be Administered?: Yes - Reproductive History Last Menstrual Period: 09/24/15 - Smoking Cessation Smoking history: Never smoked Have you smoked in the past 12 months: No Aproximately how many cigarettes per day: 1 Hx Chewing Tobacco Use: No - Substance & Tx. History Hx Alcohol Use: No Substance Use Type: Heroin, Opiates Hx Substance Use Treatment: Yes ([facility]) Family Disease History - Family Disease History Family Disease History: Other: Father ([facility]) Admission Physical Exam S - Physical General Appearance: Yes: Moderate Distress HEENTM: Yes: EOMI, Normal ENT Inspection, Normocephalic, Normal Voice, [place], Pharynx Normal Respiratory: Yes: Normal Breath Sounds, Decreased Breath Sounds, No Respiratory Distress Neck: Yes: Supple Breast: Yes: Breast Exam Deferred Cardiology: Yes: Regular Rhythm, Regular Rate, S1, S2 Abdominal: Yes: Normal Bowel Sounds Genitourinary: Yes: Within Normal Limits Back: Yes: Normal Inspection Musculoskeletal: Yes: Muscle Pain Extremities: Yes: Tremors Neurological: Yes: Alert, Normal Mood/Affect Integumentary: Yes: Diaphoresis Lymphatic: Yes: Within Normal Limits - Diagnostic (1) Depression Current Visit: Yes Status: Acute (2) Seizure Current Visit: No Status: Acute (3) Alcohol dependence with uncomplicated withdrawal Current Visit: No Status: Chronic (4) Cannabis dependence Current Visit: No Status: Chronic (5) Opioid dependence with withdrawal Current Visit: No Status: Chronic (6) Sedative, hypnotic, or anxiolytic withdrawal Current Visit: No Status: Chronic (7) Seizure disorder Current Visit: No Status: Suspected BHS Breath Alcohol Content Breath Alcohol Content: 0
[2018-03-25] MEDS ORDERED: diazePAM 5 MG TABLET PO PRN (01:16)
[2018-03-25] MEDS ORDERED: IBUPROFEN 400 MG TABLET (FP) PO PRN (01:16)
[2018-03-25] MEDS ORDERED: MAG HYDROX/AL HYDROX/SIMETH 30 ML UNIT-DOSE CUP PO PRN (01:16)
[2018-03-25] MEDS ORDERED: guaiFENesin/D-METHORPHAN HB 10 ML UNIT-DOSE CUPS PO PRN (01:16)
[2018-03-25] MEDS ORDERED: MAGNESIUM HYDROX 2400MG/30ML ORAL SUSPENSION 30 ML CUP PO PRN (01:16)
[2018-03-25] MEDS ORDERED: ACETAMINOPHEN 325 MG TABLET (FP) PO PRN (01:16)
[2018-03-25] MEDS ORDERED: MENTHOL/PHENOL 1 EACH UD MM PRN (01:16)
[2018-03-25] MEDS ORDERED: MAGNESIUM CITRATE 300 ML BOTTLE PO PRN (01:16)
[2018-03-25] MEDS ORDERED: LOPERAMIDE HCL 2 MG CAPSULE PO PRN (01:16)
[2018-03-25] MEDS ORDERED: METHADONE HCL 10 MG TABLET (FOR DETOX USE ONLY) PO ONE ×5 (01:16→23:00)
[2018-03-25] MEDS ORDERED: P-EPHED 60MG/TRIPROLIDI 2.5MG TABLET PO PRN (01:16)
[2018-03-25] MEDS: diazePAM 5 MG TABLET PO PRN ×3 (02:45→22:32)
--- NOTE | 2018-03-25 08:49 | EKG ---
Test Reason : Blood Pressure : / mmHG Vent. Rate : 088 BPM Atrial Rate : 088 BPM P-R Int : 142 ms QRS Dur : 082 ms QT Int : 392 ms P-R-T Axes : 060 034 037 degrees QTc Int : 474 ms NORMAL SINUS RHYTHM WITH SINUS ARRHYTHMIA NORMAL ECG WHEN COMPARED WITH ECG OF 15-JAN-2018 00:52, NO SIGNIFICANT CHANGE WAS FOUND Confirmed by REJI KNIGHT, LAUREN ([id number]) on 03/25/2018 8:49:09 AM Referred By: Sonia Stovall Confirmed By:LAUREN MENDOZA MD
[2018-03-25 10:04] LABS: HEMATOCRIT 35.4 % (32.4-45.2); HEMOGLOBIN 11.9 GM/dL (10.7-15.3); MCH 28.6 pg (25.7-33.7); MCHC 33.5 g/dl (32.0-36.0); MEAN CELL VOLUME 85.4 fl (80-96); MEAN PLT VOLUME 8.4 fl (7.5-11.1); PLATELET COUNT 254 K/MM3 (134-434); RBC 4.15 M/mm3 (3.60-5.2); RDW 13.4 % (11.6-15.6); WHITE BLOOD COUNT 6.1 K/mm3 (4.0-10.0)
[2018-03-25 10:33] LABS: CHLORIDE 105 mmol/L (98-107); SODIUM 139 mmol/L (136-145)
[2018-03-25] MEDS: PRENATAL VITAMINS W/ FOLIC ACID TABLET (FP) PO SCH (10:55)
[2018-03-25 10:56] LABS: ALBUMIN 3.3 g/dl (3.4-5.0); ALK PHOS 68 U/L (45-117); ANION GAP 9 (8-16); BILIRUBIN,TOTAL 0.5 mg/dL (0.2-1.0); BLOOD UREA NITROGEN 12 mg/dL (7-18); CALCIUM 8.4 mg/dL (8.5-10.1); CO2 25 mmol/L (21-32); CREATININE 0.9 mg/dL (0.55-1.02); GLUCOSE,RANDOM 102 mg/dL (74-106); SGOT/AST 25 U/L (15-37); SGPT/ALT 25 U/L (12-78); TOT PROT 6.7 g/dl (6.4-8.2)
[2018-03-25 12:33] LABS: URINE APPEARANCE CLEAR; URINE BILIRUBIN NEGATIVE (<2.0 mg/dL); URINE COLOR LTYELLOW; URINE GLUCOSE (UA) NEGATIVE (NEGATIVE); URINE KETONE NEGATIVE (NEGATIVE); URINE LEUK ESTERASE TRACE (NEGATIVE); URINE NITRITE NEGATIVE (NEGATIVE); URINE PROTEIN NEGATIVE (NEGATIVE); URINE UROBILINOGEN NEGATIVE mg/dL (0.2-1.0)
[2018-03-25 12:34] LABS: EPI CELLS RARE /HPF (FEW); URINE BACTERIA RARE /hpf (NONE SEEN)
[2018-03-25 12:56] LABS: RPR REACTIVE 1:1 (NONREACTIVE)
--- NOTE | 2018-03-25 14:17 | PN ---
S CIWA - CIWA Score Nausea/Vomitin Muscle Tremors: 3 Agitation: 3 Paroxysmal Sweats: 1-Minimal Palms Moist Orientation: 0-Oriented Tacttile Disturbances: 1-Very Mild Itch/Numbness Auditory Disturbances: 1-Very Mild Visual Disturbances: 0-None Headache: 2-Mild BHS COWS - Scale Resting Pulse: 0= [place] 80 or Below Sweatin= Chills/Flushing Restless Observation: 3= Extraneous Movement Pupil Size: 1= Pupils >than Normal Bone or Joint Aches: 2= Severe Diffuse Aches Runny Nose/ Eye Tearin= Runny Nose/Eyes GI Upset > 30mins: 3= Vomiting/Diarrhea Tremor Observation of Outstretched Hands: 2= Slight Tremor Visible Yawning Observation: 1= 1-2x During Session Anxiety or Irritability: 2=Irritable/Anxious Goose Flesh Skin: 0=Smooth Skin COWS Score: 17 BHS Progress Note (SOAP) Subjective: ALERT,IRRITABLE,ANXIOUS,INTERRUPTED SLEEP,TREMOR,PIN IN THE BODY AND BACK Objective: 03/25/18 14:15 Vital Signs Temperature 97.7 F 03/25/18 09:44 Pulse Rate 87 03/25/18 09:44 Respiratory Rate 16 03/25/18 09:44 Blood Pressure 104/46 03/25/18 09:44 O2 Sat by Pulse Oximetry (%) EKG NSR WITH SINUS ARRHYTHMIA NORMAL ECG PROLONG QT 392/474 NO CHEST PAIN,NO SOB,NO DIZZINESS Laboratory Last Values WBC 6.1 K/mm3 (4.0-10.0) 03/25/18 07:50 RBC 4.15 M/mm3 (3.60-5.2) 03/25/18 07:50 Hgb 11.9 GM/dL (10.7-15.3) 03/25/18 07:50 Hct 35.4 % (32.4-45.2) 03/25/18 07:50 MCV 85.4 fl (80-96) 03/25/18 07:50 MCH 28.6 pg (25.7-33.7) 03/25/18 07:50 MCHC 33.5 g/dl (32.0-36.0) 03/25/18 07:50 RDW 13.4 % (11.6-15.6) 03/25/18 07:50 Plt Count 254 K/MM3 (134-434) 03/25/18 07:50 MPV 8.4 fl (7.5-11.1) 03/25/18 07:50 Sodium 139 mmol/L (136-145) 03/25/18 07:50 Potassium 4.0 mmol/L (3.5-5.1) 03/25/18 07:50 Chloride 105 mmol/L (98-107) 03/25/18 07:50 Carbon Dioxide 25 mmol/L (21-32) 03/25/18 07:50 Anion Gap 9 (8-16) 03/25/18 07:50 BUN 12 mg/dL (7-18) 03/25/18 07:50 Creatinine 0.9 mg/dL (0.55-1.02) 03/25/18 07:50 Creat Clearance w eGFR > 60 (>60) 03/25/18 07:50 Random Glucose 102 mg/dL (74-106) 03/25/18 07:50 Calcium 8.4 mg/dL (8.5-10.1) L 03/25/18 07:50 Total Bilirubin 0.5 mg/dL (0.2-1.0) D 03/25/18 07:50 AST 25 U/L (15-37) 03/25/18 07:50 ALT 25 U/L (12-78) 03/25/18 07:50 Alkaline Phosphatase 68 U/L (45-117) 03/25/18 07:50 Total Protein 6.7 g/dl (6.4-8.2) 03/25/18 07:50 Albumin 3.3 g/dl (3.4-5.0) L 03/25/18 07:50 Urine Color Ltyellow 03/25/18 07:50 Urine Appearance Clear 03/25/18 07:50 Urine pH 5.0 (5.0-8.0) 03/25/18 07:50 Ur Specific [place] 1.016 (1.001-1.035) 03/25/18 07:50 Urine Protein Negative (NEGATIVE) 03/25/18 07:50 Urine Glucose (UA) Negative (NEGATIVE) 03/25/18 07:50 Urine Ketones Negative (NEGATIVE) 03/25/18 07:50 Urine Blood Negative (NEGATIVE) 03/25/18 07:50 Urine Nitrite Negative (NEGATIVE) 03/25/18 07:50 Urine Bilirubin Negative (<2.0 mg/dL) 03/25/18 07:50 Urine Urobilinogen Negative mg/dL (0.2-1.0) 03/25/18 07:50 Ur Leukocyte Esterase Trace (NEGATIVE) 03/25/18 07:50 Urine WBC (Auto) 2 /hpf (3-5) 03/25/18 07:50 Urine RBC (Auto) <1 /hpf (0-3) 03/25/18 07:50 Ur Epithelial Cells Rare /HPF (FEW) 03/25/18 07:50 Urine Bacteria Rare /hpf (NONE SEEN) 03/25/18 07:50 RPR Titer Reactive 1:1 (NONREACTIVE) H 03/25/18 07:50 Assessment: 03/25/18 14:21 WITHDRAWAL SYMPTOM Plan: CONTINUE DETOX
[2018-03-25 15:00] LABS: TREPONEMA ANTIBODY NON REACTIVE (NONREACTIVE)
[2018-03-25] MEDS: THIAMINE HCL 100 MG TABLET (FP) PO SCH (22:31)
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
[2018-03-26] MEDS ORDERED: METHADONE HCL 10 MG TABLET (FOR DETOX USE ONLY) PO ONE ×2 (10:00)
[2018-03-26] MEDS: PRENATAL VITAMINS W/ FOLIC ACID TABLET (FP) PO SCH (10:34)
[2018-03-26] MEDS: diazePAM 5 MG TABLET PO PRN ×2 (10:34→22:45)
[2018-03-26] MEDS ORDERED: GABAPENTIN 400 MG CAPSULE (FP) PO ONE (12:15)
[2018-03-26] MEDS: GABAPENTIN 400 MG CAPSULE (FP) PO SCH ×2 (14:35→22:45)
--- NOTE | 2018-03-26 16:19 | PN ---
S CIWA - CIWA Score Nausea/Vomitin Muscle Tremors: 3 Anxiety: 3 Agitation: 2 Paroxysmal Sweats: 1-Minimal Palms Moist Orientation: 0-Oriented Tacttile Disturbances: 1-Very Mild Itch/Numbness Auditory Disturbances: 1-Very Mild Visual Disturbances: 0-None Headache: 2-Mild CIWA-Ar Total Score: 16 BHS COWS - Scale Resting Pulse: 1= [place] 81-100 Sweatin= Chills/Flushing Restless Observation: 3= Extraneous Movement Pupil Size: 1= Pupils >than Normal Bone or Joint Aches: 2= Severe Diffuse Aches Runny Nose/ Eye Tearin= Runny Nose/Eyes GI Upset > 30mins: 2= Nausea/Diarrhea Tremor Observation of Outstretched Hands: 2= Slight Tremor Visible Yawning Observation: 1= 1-2x During Session Anxiety or Irritability: 2=Irritable/Anxious Goose Flesh Skin: 0=Smooth Skin COWS Score: 17 S Progress Note (SOAP) Subjective: alert,irritable,anxious,interrupted sleep,tremor,pain in the body,back Objective: 03/26/18 16:17 Vital Signs Temperature 97.7 F 03/26/18 14:25 Pulse Rate 94 H 03/26/18 14:25 Respiratory Rate 16 03/26/18 14:25 Blood Pressure 113/59 03/26/18 14:25 O2 Sat by Pulse Oximetry (%) Laboratory Last Values WBC 6.1 K/mm3 (4.0-10.0) 03/25/18 07:50 RBC 4.15 M/mm3 (3.60-5.2) 03/25/18 07:50 Hgb 11.9 GM/dL (10.7-15.3) 03/25/18 07:50 Hct 35.4 % (32.4-45.2) 03/25/18 07:50 MCV 85.4 fl (80-96) 03/25/18 07:50 MCH 28.6 pg (25.7-33.7) 03/25/18 07:50 MCHC 33.5 g/dl (32.0-36.0) 03/25/18 07:50 RDW 13.4 % (11.6-15.6) 03/25/18 07:50 Plt Count 254 K/MM3 (134-434) 03/25/18 07:50 MPV 8.4 fl (7.5-11.1) 03/25/18 07:50 Sodium 139 mmol/L (136-145) 03/25/18 07:50 Potassium 4.0 mmol/L (3.5-5.1) 03/25/18 07:50 Chloride 105 mmol/L (98-107) 03/25/18 07:50 Carbon Dioxide 25 mmol/L (21-32) 03/25/18 07:50 Anion Gap 9 (8-16) 03/25/18 07:50 BUN 12 mg/dL (7-18) 03/25/18 07:50 Creatinine 0.9 mg/dL (0.55-1.02) 03/25/18 07:50 Creat Clearance w eGFR > 60 (>60) 03/25/18 07:50 Random Glucose 102 mg/dL (74-106) 03/25/18 07:50 Calcium 8.4 mg/dL (8.5-10.1) L 03/25/18 07:50 Total Bilirubin 0.5 mg/dL (0.2-1.0) D 03/25/18 07:50 AST 25 U/L (15-37) 03/25/18 07:50 ALT 25 U/L (12-78) 03/25/18 07:50 Alkaline Phosphatase 68 U/L (45-117) 03/25/18 07:50 Total Protein 6.7 g/dl (6.4-8.2) 03/25/18 07:50 Albumin 3.3 g/dl (3.4-5.0) L 03/25/18 07:50 Urine Color Ltyellow 03/25/18 07:50 Urine Appearance Clear 03/25/18 07:50 Urine pH 5.0 (5.0-8.0) 03/25/18 07:50 Ur Specific [place] 1.016 (1.001-1.035) 03/25/18 07:50 Urine Protein Negative (NEGATIVE) 03/25/18 07:50 Urine Glucose (UA) Negative (NEGATIVE) 03/25/18 07:50 Urine Ketones Negative (NEGATIVE) 03/25/18 07:50 Urine Blood Negative (NEGATIVE) 03/25/18 07:50 Urine Nitrite Negative (NEGATIVE) 03/25/18 07:50 Urine Bilirubin Negative (<2.0 mg/dL) 03/25/18 07:50 Urine Urobilinogen Negative mg/dL (0.2-1.0) 03/25/18 07:50 Ur Leukocyte Esterase Trace (NEGATIVE) 03/25/18 07:50 Urine WBC (Auto) 2 /hpf (3-5) 03/25/18 07:50 Urine RBC (Auto) <1 /hpf (0-3) 03/25/18 07:50 Ur Epithelial Cells Rare /HPF (FEW) 03/25/18 07:50 Urine Bacteria Rare /hpf (NONE SEEN) 03/25/18 07:50 RPR Titer Reactive 1:1 (NONREACTIVE) H 03/25/18 07:50 T.pallidum Ab (MHA) Non reactive (NONREACTIVE) 03/25/18 07:50 Assessment: 03/26/18 16:18 withdrawal symptom Plan: continue detox
[2018-03-26] MEDS: THIAMINE HCL 100 MG TABLET (FP) PO SCH (22:45)
[2018-03-26] MEDS: MIRTAZAPINE 15 MG TABLET (FP) PO SCH (23:25)
[2018-03-27] MEDS: GABAPENTIN 400 MG CAPSULE (FP) PO SCH ×3 (06:00→22:30)
[2018-03-27] MEDS: diazePAM 5 MG TABLET PO PRN ×3 (06:02→19:40)
[2018-03-27] MEDS ORDERED: METHADONE HCL 5 MG TABLET (FOR DETOX USE ONLY) PO ONE ×2 (10:00)
[2018-03-27] MEDS: PRENATAL VITAMINS W/ FOLIC ACID TABLET (FP) PO SCH (11:05)
--- NOTE | 2018-03-27 14:52 | PN ---
BHS Progress Note (SOAP) Subjective: ALERT,IRRITABLE,ANXIOUS,INTERRUPTED SLEEP,PAIN IN THE BODY AND BACK Objective: 03/27/18 14:51 Vital Signs Temperature 98.1 F 03/27/18 09:45 Pulse Rate 102 H 03/27/18 09:45 Respiratory Rate 20 03/27/18 09:45 Blood Pressure 120/57 03/27/18 09:45 O2 Sat by Pulse Oximetry (%) Assessment: 03/27/18 14:52 WITHDRAWAL SYMPTOM Plan: CONTINUE DETOX
[2018-03-27] MEDS: MIRTAZAPINE 15 MG TABLET (FP) PO SCH (22:29)
[2018-03-27] MEDS: THIAMINE HCL 100 MG TABLET (FP) PO SCH (22:29)
[2018-03-27] MEDS: MELATONIN 5 MG TABLETS PO PRN (22:30)
[2018-03-28] MEDS: GABAPENTIN 400 MG CAPSULE (FP) PO SCH ×3 (05:36→22:25)
[2018-03-28] MEDS ORDERED: METHADONE HCL 5 MG TABLET (FOR DETOX USE ONLY) PO ONE ×2 (10:00)
[2018-03-28] MEDS: PRENATAL VITAMINS W/ FOLIC ACID TABLET (FP) PO SCH (10:13)
--- NOTE | 2018-03-28 12:21 | PN ---
BHS Progress Note (SOAP) Subjective: joint pain body ache stuffy nose trouble sleep at night restlessness anxiety Objective: 03/28/18 12:17 Vital Signs Temperature 97.9 F 03/28/18 11:11 Pulse Rate 93 H 03/28/18 11:11 Respiratory Rate 20 03/28/18 11:11 Blood Pressure 106/62 03/28/18 11:11 O2 Sat by Pulse Oximetry (%) Laboratory Last Values WBC 6.1 K/mm3 (4.0-10.0) 03/25/18 07:50 RBC 4.15 M/mm3 (3.60-5.2) 03/25/18 07:50 Hgb 11.9 GM/dL (10.7-15.3) 03/25/18 07:50 Hct 35.4 % (32.4-45.2) 03/25/18 07:50 MCV 85.4 fl (80-96) 03/25/18 07:50 MCH 28.6 pg (25.7-33.7) 03/25/18 07:50 MCHC 33.5 g/dl (32.0-36.0) 03/25/18 07:50 RDW 13.4 % (11.6-15.6) 03/25/18 07:50 Plt Count 254 K/MM3 (134-434) 03/25/18 07:50 MPV 8.4 fl (7.5-11.1) 03/25/18 07:50 Sodium 139 mmol/L (136-145) 03/25/18 07:50 Potassium 4.0 mmol/L (3.5-5.1) 03/25/18 07:50 Chloride 105 mmol/L (98-107) 03/25/18 07:50 Carbon Dioxide 25 mmol/L (21-32) 03/25/18 07:50 Anion Gap 9 (8-16) 03/25/18 07:50 BUN 12 mg/dL (7-18) 03/25/18 07:50 Creatinine 0.9 mg/dL (0.55-1.02) 03/25/18 07:50 Creat Clearance w eGFR > 60 (>60) 03/25/18 07:50 Random Glucose 102 mg/dL (74-106) 03/25/18 07:50 Calcium 8.4 mg/dL (8.5-10.1) L 03/25/18 07:50 Total Bilirubin 0.5 mg/dL (0.2-1.0) D 03/25/18 07:50 AST 25 U/L (15-37) 03/25/18 07:50 ALT 25 U/L (12-78) 03/25/18 07:50 Alkaline Phosphatase 68 U/L (45-117) 03/25/18 07:50 Total Protein 6.7 g/dl (6.4-8.2) 03/25/18 07:50 Albumin 3.3 g/dl (3.4-5.0) L 03/25/18 07:50 Urine Color Ltyellow 03/25/18 07:50 Urine Appearance Clear 03/25/18 07:50 Urine pH 5.0 (5.0-8.0) 03/25/18 07:50 Ur Specific [place] 1.016 (1.001-1.035) 03/25/18 07:50 Urine Protein Negative (NEGATIVE) 03/25/18 07:50 Urine Glucose (UA) Negative (NEGATIVE) 03/25/18 07:50 Urine Ketones Negative (NEGATIVE) 03/25/18 07:50 Urine Blood Negative (NEGATIVE) 03/25/18 07:50 Urine Nitrite Negative (NEGATIVE) 03/25/18 07:50 Urine Bilirubin Negative (<2.0 mg/dL) 03/25/18 07:50 Urine Urobilinogen Negative mg/dL (0.2-1.0) 03/25/18 07:50 Ur Leukocyte Esterase Trace (NEGATIVE) 03/25/18 07:50 Urine WBC (Auto) 2 /hpf (3-5) 03/25/18 07:50 Urine RBC (Auto) <1 /hpf (0-3) 03/25/18 07:50 Ur Epithelial Cells Rare /HPF (FEW) 03/25/18 07:50 Urine Bacteria Rare /hpf (NONE SEEN) 03/25/18 07:50 RPR Titer Reactive 1:1 (NONREACTIVE) H 03/25/18 07:50 T.pallidum Ab (MHA) Non reactive (NONREACTIVE) 03/25/18 07:50 lab noted history of syphilis treatment Assessment: 03/28/18 12:21 withdrawal sx Plan: continue detox
[2018-03-28] MEDS: MIRTAZAPINE 15 MG TABLET (FP) PO SCH (22:25)
[2018-03-28] MEDS: THIAMINE HCL 100 MG TABLET (FP) PO SCH (22:25)
[2018-03-28] MEDS: MELATONIN 5 MG TABLETS PO PRN (22:25)
[2018-03-29] MEDS: GABAPENTIN 400 MG CAPSULE (FP) PO SCH ×3 (06:12→22:25)
[2018-03-29] MEDS ORDERED: METHADONE HCL 10 MG TABLET (FOR DETOX USE ONLY) PO ONE ×2 (10:00)
[2018-03-29] MEDS: PRENATAL VITAMINS W/ FOLIC ACID TABLET (FP) PO SCH (10:21)
--- NOTE | 2018-03-29 10:32 | PN ---
[facility] Progress Note (SOAP) Subjective: feeling better denies pain slept through the night social with peers in day room Objective: 03/29/18 10:32 Vital Signs Temperature 98.1 F 03/29/18 10:27 Pulse Rate 100 H 03/29/18 10:27 Respiratory Rate 20 03/29/18 10:27 Blood Pressure 121/63 03/29/18 10:27 O2 Sat by Pulse Oximetry (%) Laboratory Last Values WBC 6.1 K/mm3 (4.0-10.0) 03/25/18 07:50 RBC 4.15 M/mm3 (3.60-5.2) 03/25/18 07:50 Hgb 11.9 GM/dL (10.7-15.3) 03/25/18 07:50 Hct 35.4 % (32.4-45.2) 03/25/18 07:50 MCV 85.4 fl (80-96) 03/25/18 07:50 MCH 28.6 pg (25.7-33.7) 03/25/18 07:50 MCHC 33.5 g/dl (32.0-36.0) 03/25/18 07:50 RDW 13.4 % (11.6-15.6) 03/25/18 07:50 Plt Count 254 K/MM3 (134-434) 03/25/18 07:50 MPV 8.4 fl (7.5-11.1) 03/25/18 07:50 Sodium 139 mmol/L (136-145) 03/25/18 07:50 Potassium 4.0 mmol/L (3.5-5.1) 03/25/18 07:50 Chloride 105 mmol/L (98-107) 03/25/18 07:50 Carbon Dioxide 25 mmol/L (21-32) 03/25/18 07:50 Anion Gap 9 (8-16) 03/25/18 07:50 BUN 12 mg/dL (7-18) 03/25/18 07:50 Creatinine 0.9 mg/dL (0.55-1.02) 03/25/18 07:50 Creat Clearance w eGFR > 60 (>60) 03/25/18 07:50 Random Glucose 102 mg/dL (74-106) 03/25/18 07:50 Calcium 8.4 mg/dL (8.5-10.1) L 03/25/18 07:50 Total Bilirubin 0.5 mg/dL (0.2-1.0) D 03/25/18 07:50 AST 25 U/L (15-37) 03/25/18 07:50 ALT 25 U/L (12-78) 03/25/18 07:50 Alkaline Phosphatase 68 U/L (45-117) 03/25/18 07:50 Total Protein 6.7 g/dl (6.4-8.2) 03/25/18 07:50 Albumin 3.3 g/dl (3.4-5.0) L 03/25/18 07:50 Urine Color Ltyellow 03/25/18 07:50 Urine Appearance Clear 03/25/18 07:50 Urine pH 5.0 (5.0-8.0) 03/25/18 07:50 Ur Specific [place] 1.016 (1.001-1.035) 03/25/18 07:50 Urine Protein Negative (NEGATIVE) 03/25/18 07:50 Urine Glucose (UA) Negative (NEGATIVE) 03/25/18 07:50 Urine Ketones Negative (NEGATIVE) 03/25/18 07:50 Urine Blood Negative (NEGATIVE) 03/25/18 07:50 Urine Nitrite Negative (NEGATIVE) 03/25/18 07:50 Urine Bilirubin Negative (<2.0 mg/dL) 03/25/18 07:50 Urine Urobilinogen Negative mg/dL (0.2-1.0) 03/25/18 07:50 Ur Leukocyte Esterase Trace (NEGATIVE) 03/25/18 07:50 Urine WBC (Auto) 2 /hpf (3-5) 03/25/18 07:50 Urine RBC (Auto) <1 /hpf (0-3) 03/25/18 07:50 Ur Epithelial Cells Rare /HPF (FEW) 03/25/18 07:50 Urine Bacteria Rare /hpf (NONE SEEN) 03/25/18 07:50 RPR Titer Reactive 1:1 (NONREACTIVE) H 03/25/18 07:50 T.pallidum Ab (MHA) Non reactive (NONREACTIVE) 03/25/18 07:50 lab noted Assessment: 03/29/18 10:33 mild withdrawal sx Plan: medically supervised detox encourage discuss aftercare and benefits of sobriety
[2018-03-29] MEDS: THIAMINE HCL 100 MG TABLET (FP) PO SCH (22:25)
[2018-03-29] MEDS: MIRTAZAPINE 15 MG TABLET (FP) PO SCH (22:25)
[2018-03-30] MEDS ORDERED: METHADONE HCL 5 MG TABLET (FOR DETOX USE ONLY) PO ONE ×2 (06:00)
[2018-03-30] MEDS: GABAPENTIN 400 MG CAPSULE (FP) PO SCH (06:05)
[2018-03-30 07:54] VITALS: BP 139/71; PULSE 92; TEMP 97.9
--- NOTE | 2018-03-30 09:33 | DS ---
[facility] Detox Discharge Summary Admission Date: 03/24/18 Discharge Date: 03/30/18 - History Present History: Opioid Dependence Additional Comments: 32 years old female admitted on 03/25/18 for opiate withdrawal sx completed opiate detox regimen tolerated well denies opiate withdrawal sx alert oriented x 3 no acute distress aftercare new focus for addiction and medical and mental issues patient expressed remain sober throughout the recovering process - Physical Exam Results Vital Signs: Vital Signs Temperature 97.9 F 03/30/18 07:53 Pulse Rate 92 H 03/30/18 07:53 Respiratory Rate 20 03/30/18 07:53 Blood Pressure 139/71 03/30/18 07:53 O2 Sat by Pulse Oximetry (%) Pertinent Admission Physical Exam Findings: withdrawal sx Vital Signs Temperature 97.9 F 03/30/18 07:53 Pulse Rate 92 H 03/30/18 07:53 Respiratory Rate 20 03/30/18 07:53 Blood Pressure 139/71 03/30/18 07:53 O2 Sat by Pulse Oximetry (%) Laboratory Last Values WBC 6.1 K/mm3 (4.0-10.0) 03/25/18 07:50 RBC 4.15 M/mm3 (3.60-5.2) 03/25/18 07:50 Hgb 11.9 GM/dL (10.7-15.3) 03/25/18 07:50 Hct 35.4 % (32.4-45.2) 03/25/18 07:50 MCV 85.4 fl (80-96) 03/25/18 07:50 MCH 28.6 pg (25.7-33.7) 03/25/18 07:50 MCHC 33.5 g/dl (32.0-36.0) 03/25/18 07:50 RDW 13.4 % (11.6-15.6) 03/25/18 07:50 Plt Count 254 K/MM3 (134-434) 03/25/18 07:50 MPV 8.4 fl (7.5-11.1) 03/25/18 07:50 Sodium 139 mmol/L (136-145) 03/25/18 07:50 Potassium 4.0 mmol/L (3.5-5.1) 03/25/18 07:50 Chloride 105 mmol/L (98-107) 03/25/18 07:50 Carbon Dioxide 25 mmol/L (21-32) 03/25/18 07:50 Anion Gap 9 (8-16) 03/25/18 07:50 BUN 12 mg/dL (7-18) 03/25/18 07:50 Creatinine 0.9 mg/dL (0.55-1.02) 03/25/18 07:50 Creat Clearance w eGFR > 60 (>60) 03/25/18 07:50 Random Glucose 102 mg/dL (74-106) 03/25/18 07:50 Calcium 8.4 mg/dL (8.5-10.1) L 03/25/18 07:50 Total Bilirubin 0.5 mg/dL (0.2-1.0) D 03/25/18 07:50 AST 25 U/L (15-37) 03/25/18 07:50 ALT 25 U/L (12-78) 03/25/18 07:50 Alkaline Phosphatase 68 U/L (45-117) 03/25/18 07:50 Total Protein 6.7 g/dl (6.4-8.2) 03/25/18 07:50 Albumin 3.3 g/dl (3.4-5.0) L 03/25/18 07:50 Urine Color Ltyellow 03/25/18 07:50 Urine Appearance Clear 03/25/18 07:50 Urine pH 5.0 (5.0-8.0) 03/25/18 07:50 Ur Specific [place] 1.016 (1.001-1.035) 03/25/18 07:50 Urine Protein Negative (NEGATIVE) 03/25/18 07:50 Urine Glucose (UA) Negative (NEGATIVE) 03/25/18 07:50 Urine Ketones Negative (NEGATIVE) 03/25/18 07:50 Urine Blood Negative (NEGATIVE) 03/25/18 07:50 Urine Nitrite Negative (NEGATIVE) 03/25/18 07:50 Urine Bilirubin Negative (<2.0 mg/dL) 03/25/18 07:50 Urine Urobilinogen Negative mg/dL (0.2-1.0) 03/25/18 07:50 Ur Leukocyte Esterase Trace (NEGATIVE) 03/25/18 07:50 Urine WBC (Auto) 2 /hpf (3-5) 03/25/18 07:50 Urine RBC (Auto) <1 /hpf (0-3) 03/25/18 07:50 Ur Epithelial Cells Rare /HPF (FEW) 03/25/18 07:50 Urine Bacteria Rare /hpf (NONE SEEN) 03/25/18 07:50 RPR Titer Reactive 1:1 (NONREACTIVE) H 03/25/18 07:50 T.pallidum Ab (MHA) Non reactive (NONREACTIVE) 03/25/18 07:50 lab noted - Treatment Hospital Course: Detox Protocol Followed, Detoxed Safely, Responded well, Discharged Condition Good, Rehab Referral Accepted Patient has Accepted a Rehab Referral to: new focus - Medication Discharge Medications: Ambulatory Orders Ibuprofen [Motrin -] 600 mg PO QID PRN 02/20/18 Gabapentin 400 mg PO TID #90 capsule 03/26/18 Mirtazapine [Remeron -] 7.5 mg PO HS #14 tablet 03/26/18 - Diagnosis (1) Substance-induced anxiety disorder Current Visit: Yes Status: Suspected (2) Opioid dependence with withdrawal Current Visit: Yes Status: Acute (3) Nicotine abuse Current Visit: Yes Status: Acute - AMA Did Patient Leave Against Medical Advice: No
== END 2018-03-30 08:40 | disposition home or self-care (01) | DRG 773 ==
LOC: YASAS 23:24 → Y6N 23:47
PROVIDERS: ADMIT Surgery; ATTEND Surgery
PROC: HZ2ZZZZ Detoxification Services for Substance Abuse Treatment (ICD-10-PCS; principal; 2018-03-24)
DX: F11.23 Opioid dependence with withdrawal (principal); F10.230 Alcohol dependence with withdrawal, uncomplicated; F14.20 Cocaine dependence, uncomplicated; F13.230 Sedative, hypnotic or anxiolytic dependence with withdrawal, uncomplicated; F19.280 Other psychoactive substance dependence with psychoactive substance-induced anxiety disorder; F19.282 Other psychoactive substance dependence with psychoactive substance-induced sleep disorder; F32.9 Major depressive disorder, single episode, unspecified; F31.9 Bipolar disorder, unspecified; G40.909 Epilepsy, unspecified, not intractable, without status epilepticus; I49.9 Cardiac arrhythmia, unspecified; I45.81 Long QT syndrome; Z87.42 Personal history of other diseases of the female genital tract
CPT/HCPCS: 36415; 80053; 81003; 81015; 85027; 86593; 86780; 93005; 93010

== ENCOUNTER 2018-07-13 12:38 | Inpatient (IN) | payer OTHER ==
[2018-07-13 14:38] VITALS: BMI 36.2
--- NOTE | 2018-07-13 16:21 | HP ---
COWS - Scale Resting Pulse: 0= [place] 80 or Below Sweatin= Chills/Flushing Restless Observation: 1= Difficult to Sit Still Pupil Size: 1= Pupils >than Normal Bone or Joint Aches: 2= Severe Diffuse Aches Runny Nose/ Eye Tearin= Runny Nose/Eyes GI Upset > 30mins: 1= Stomach Cramp Tremor Observation: 2= Slight Tremor Visible Yawning Observation: 0= None Anxiety or Irritability: 2=Irritable/Anxious Goose Flesh Skin: 0=Smooth Skin COWS Score: 12 CIWA Score - CIWA Score Nausea/Vomitin Muscle Tremors: 2 Anxiety: 2 Agitation: 0-Normal Activity Paroxysmal Sweats: 2 Orientation: 0-Oriented Tacttile Disturbances: 2-Mild Itch/Numbness/Burn Auditory Disturbances: 0-None Visual Disturbances: 0-None Headache: 2-Mild CIWA-Ar Total Score: 12 Admission ROS S - HPI Chief Complaint: PATIENT PRESENTS WITH ETOH AND OPIOD WITHDRAWAL SYMPTOMS. Allergies/Adverse Reactions: Allergies Allergy/AdvReac Type Severity Reaction Status Date / Time No Known Allergies Allergy Verified 07/13/18 15:11 History of Present Illness: PATIENT PRESENTS WITH ETOH AND OPIOD WITHDRAWAL SYMPTOMS. PATIENT STARTED USING BOTH SUBSTANCES HEAVILY IN 2014. DRINKS UP TO 3 PINTS OF LIQUOR DAILY AND 50MG OF OXYCODONE DAILY. LAST TIME SHE USED WAS EARLIER TODAY. DENIES HX OF OVERDOSE. +HX OF SEIZURES , LAST EPISODE IN DECEMBER OF 2017. LAST DETOX ATTEMPT HERE AT [facility] IN 02/2018. PATIENT PMH INCLUDES BIPOLAR DISORDER. DENIES SI/HI AND SUICIDE ATTEMPTS. ALSO SNIFFS COCAINE ON THE WEEKENDS WELL SMOKES MARIJUANA. LAST TIME USED LAST WEEKEND. AMOUNT VARIES. Exam Limitations: No Limitations - Ebola screening Have you traveled outside of the country in the last 21 days: No Have you had contact with anyone from an Ebola affected area: No Have you been sick,other than usual withdrawal symptoms: No Do you have a fever: No - Review of Systems Constitutional: Night Sweats, Changes in sleep EENT: reports: Tearing, Nose Congestion Respiratory: reports: No Symptoms reported Cardiac: reports: No Symptoms Reported GI: reports: Nausea, Poor Fluid Intake, Abdominal cramping : reports: Frequency Musculoskeletal: reports: Back Pain, Muscle Pain Integumentary: reports: Flushing, Sweating Neuro: reports: Numbness, Seizure, Tingling, Tremors Endocrine: reports: No Symptoms Reported Hematology: reports: No Symptoms Reported Psychiatric: reports: Orientated x3, Anxious, Depressed Patient History - Patient Medical History Hx Anemia: No Hx Asthma: No Hx Chronic Obstructive Pulmonary Disease (COPD): No Hx Cancer: No Hx Cardiac Disorders: No Hx Congestive Heart Failure: No Hx Hypertension: No Hx Hypercholesterolemia: No Hx Pacemaker: No HX Cerebrovascular Accident: No Hx Seizures: Yes (last seizure was 01/15) Hx Dementia: No Hx Diabetes: No Hx Gastrointestinal Disorders: No Hx Liver Disease: No Hx Genitourinary Disorders: No Hx Sexually Transmitted Disorders: Yes (Hx of genital herpes.) Hx Renal Disease (ESRD): No Hx Thyroid Disease: No Hx Human Immunodeficiency Virus (HIV): No Hx Hepatitis C: No Hx Depression: Yes Hx Suicide Attempt: No Hx Bipolar Disorder: No Hx Schizophrenia: No - Patient Surgical History Past Surgical History: Yes Hx Neurologic Surgery: No Hx Cataract Extraction: No Hx Cardiac Surgery: No Hx Lung Surgery: No Hx Breast Surgery: No Hx Breast Biopsy: No Hx Abdominal Surgery: No Hx Appendectomy: No Hx Cholecystectomy: No Hx Genitourinary Surgery: No Hx Section: Yes (x2) Hx Orthopedic Surgery: No Other Surgical History: TONSILLECTOMY 1999, 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 History Hx Alcohol Use: Yes Hx Substance Use: Yes Substance Use Type: Alcohol, Cocaine, Marijuana, Opiates - Substances Abused Alcohol Route: Oral Frequency: Daily Amount used: 1-2 PINTS VODKA Age of first use: 16 Date of Last Use: 07/10/18 Cocaine Route: Inhalation Frequency: Daily Amount used: $20-40 Age of first use: 19 Date of Last Use: 07/12/18 Marijuana/Hashish Route: Smoking Frequency: Daily Amount used: $20 Age of first use: 13 Date of Last Use: 07/13/18 PERCOCET Route: Oral Frequency: Daily Amount used: 3-4 10MG PILLS Age of first use: 21 Date of Last Use: 07/13/18 Family Disease History - Family Disease History Family Disease History: Other: Father ([facility]) Admission Physical Exam [facility] - Vital Signs Vital Signs: Vital Signs - 24 hr 07/13/18 14:36 Temperature 98.1 F Pulse Rate 63 Respiratory 18 Rate Blood Pressure 108/61 - Physical General Appearance: Yes: No Apparent Distress, Appropriately Dressed, Sweating, Anxious HEENTM: Yes: EOMI, Hearing grossly Normal, Normocephalic, Normal Voice, MAV[place], Pharynx Normal, Nasal Congestion Respiratory: Yes: Chest Non-Tender, Lungs Clear, Normal Breath Sounds, No Respiratory Distress, No Accessory Muscle Use Neck: Yes: No masses,lesions,Nodules, Supple Breast: Yes: Breast Exam Deferred Cardiology: Yes: Regular Rhythm, Regular Rate, S1, S2 Abdominal: Yes: Normal Bowel Sounds, Non Tender, Soft Genitourinary: Yes: Frequency Back: Yes: Normal Inspection, Muscle Spasm Musculoskeletal: Yes: full range of Motion, Gait Steady, Back pain Extremities: Yes: Normal Inspection, Normal Range of Motion, Non-Tender, Tremors Neurological: Yes: facility planner II-XII NML intact, Fully Oriented, Alert, Motor Strength 5/5, Depressed Affect Integumentary: Yes: Normal Color, Warm, Moist Lymphatic: Yes: Within Normal Limits - Diagnostic (1) Alcohol dependence with uncomplicated withdrawal Current Visit: Yes Status: Acute (2) Opioid dependence with withdrawal Current Visit: Yes Status: Acute (3) Bipolar disorder Current Visit: Yes Status: Chronic Qualifiers: Active/Remission status: remission status unspecified Qualified Code(s): F31.9 - Bipolar disorder, unspecified (4) Cannabis dependence Current Visit: Yes Status: Chronic (5) Cocaine dependence Current Visit: Yes Status: Chronic Qualifiers: Substance use status: uncomplicated Qualified Code(s): F14.20 - Cocaine dependence, uncomplicated Cleared for Admission [facility] - Detox or Rehab [facility] Level of Care: Medically Managed Detox Regimen/Protocol: Methadone/Librium [facility] Breath Alcohol Content Breath Alcohol Content: 0 Urine Pregancy Test - Result Urine Test Results: Negative- NO Line Present Urine Drug Screen - Results Drug Screen Negative: No Urine Drug Screen Results: THC-Marijuana, OLGA-Cocaine, OXY-Oxycodone
[2018-07-13] MEDS ORDERED: MAGNESIUM HYDROX 2400MG/30ML ORAL SUSPENSION 30 ML CUP PO PRN (16:28)
[2018-07-13] MEDS ORDERED: guaiFENesin/D-METHORPHAN HB 10 ML UNIT-DOSE CUPS PO PRN (16:28)
[2018-07-13] MEDS ORDERED: MAGNESIUM CITRATE 300 ML BOTTLE PO PRN (16:28)
[2018-07-13] MEDS ORDERED: P-EPHED 60MG/TRIPROLIDI 2.5MG TABLET PO PRN (16:28)
[2018-07-13] MEDS ORDERED: IBUPROFEN 400 MG TABLET (FP) PO PRN (16:28)
[2018-07-13] MEDS ORDERED: hydrOXYzine PAMOATE 50 MG CAPSULE (FP) PO PRN (16:28)
[2018-07-13] MEDS ORDERED: MENTHOL/PHENOL 1 EACH UD MM PRN (16:28)
[2018-07-13] MEDS ORDERED: MAG HYDROX/AL HYDROX/SIMETH 30 ML UNIT-DOSE CUP PO PRN (16:28)
[2018-07-13] MEDS ORDERED: ACETAMINOPHEN 325 MG TABLET (FP) PO PRN (16:28)
[2018-07-13] MEDS ORDERED: LOPERAMIDE HCL 2 MG CAPSULE PO PRN (16:28)
[2018-07-13] MEDS ORDERED: chlordiazePOXIDE HCL 25 MG CAPSULE PO ONE (16:31)
[2018-07-13] MEDS ORDERED: METHADONE HCL 10 MG TABLET (FOR DETOX USE ONLY) PO ONE ×2 (17:00→23:00)
[2018-07-13] MEDS: chlordiazePOXIDE HCL 25 MG CAPSULE PO PRN (20:24)
[2018-07-13] MEDS: chlordiazePOXIDE HCL 25 MG CAPSULE PO SCH ×2 (20:26→22:32)
[2018-07-13] MEDS: THIAMINE HCL 100 MG TABLET (FP) PO SCH (22:31)
[2018-07-13] MEDS: MELATONIN 5 MG TABLETS PO PRN (22:32)
[2018-07-14 00:51] LABS: URINE APPEARANCE CLEAR; URINE BILIRUBIN NEGATIVE (<2.0 mg/dL); URINE COLOR YELLOW; URINE GLUCOSE (UA) NEGATIVE (NEGATIVE); URINE KETONE NEGATIVE (NEGATIVE); URINE LEUK ESTERASE NEGATIVE (NEGATIVE); URINE NITRITE NEGATIVE (NEGATIVE); URINE PROTEIN NEGATIVE (NEGATIVE); URINE UROBILINOGEN NEGATIVE mg/dL (0.2-1.0)
[2018-07-14] MEDS: chlordiazePOXIDE HCL 25 MG CAPSULE PO SCH ×4 (05:23→22:07)
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
--- NOTE | 2018-07-14 09:36 | EKG ---
Test Reason : Blood Pressure : / mmHG Vent. Rate : 064 BPM Atrial Rate : 064 BPM P-R Int : 134 ms QRS Dur : 082 ms QT Int : 430 ms P-R-T Axes : -01 028 032 degrees QTc Int : 443 ms NORMAL SINUS RHYTHM NORMAL ECG WHEN COMPARED WITH ECG OF 25-MAR-2018 02:29, NO SIGNIFICANT CHANGE WAS FOUND Confirmed by MADAY JONAS MD ([id number]) on 07/14/2018 9:35:50 AM Referred By: Confirmed By:MADAY JONAS MD
[2018-07-14] MEDS ORDERED: METHADONE HCL 10 MG TABLET (FOR DETOX USE ONLY) PO SCH (10:00)
--- NOTE | 2018-07-14 10:16 | PN ---
[facility] CIWA - CIWA Score Nausea/Vomitin-No Nausea/No Vomiting Muscle Tremors: 4-Moderate,w/Arms Extend Anxiety: 3 Agitation: 3 Paroxysmal Sweats: 3 Orientation: 0-Oriented Tacttile Disturbances: 0-None Auditory Disturbances: 0-None Visual Disturbances: 0-None Headache: 0-None Present CIWA-Ar Total Score: 13 [facility] COWS - Scale Resting Pulse: 0= [place] 80 or Below Sweatin=Flushed/Facial Moisture Restless Observation: 1= Difficult to Sit Still Pupil Size: 0= Normal to Room Light Bone or Joint Aches: 2= Severe Diffuse Aches Runny Nose/ Eye Tearin= Nasal Congestion GI Upset > 30mins: 0= None Tremor Observation of Outstretched Hands: 2= Slight Tremor Visible Yawning Observation: 2= >3x During Session Anxiety or Irritability: 2=Irritable/Anxious Goose Flesh Skin: 0=Smooth Skin COWS Score: 12 S Progress Note (SOAP) Subjective: agitation sweats body aches interrupted sleep mild shakes itchy skin Objective: 07/14/18 10:15 Vital Signs Temperature 98.6 F 07/14/18 10:01 Pulse Rate 75 07/14/18 10:01 Respiratory Rate 16 07/14/18 10:01 Blood Pressure 134/80 07/14/18 10:01 O2 Sat by Pulse Oximetry (%) Laboratory Tests 07/13/18 23:50 Urine Color Yellow Urine Appearance Clear Urine pH 5.0 Ur Specific [place] 1.028 Urine Protein Negative Urine Glucose (UA) Negative Urine Ketones Negative Urine Blood Negative Urine Nitrite Negative Urine Bilirubin Negative Urine Urobilinogen Negative Ur Leukocyte Esterase Negative rest of labs pending aaox3 ambulating no acute distress Assessment: 07/14/18 10:15 withdrawal sx Plan: continue detox increase fluids labs pending visitril prn
[2018-07-14] MEDS: PRENATAL VITAMINS W/ FOLIC ACID TABLET (FP) PO SCH (10:22)
[2018-07-14 11:15] LABS: HEMOGLOBIN 13.1 GM/dL (10.7-15.3); MCH 27.4 pg (25.7-33.7); MCHC 32.8 g/dl (32.0-36.0); MEAN CELL VOLUME 83.5 fl (80-96); MEAN PLT VOLUME 8.9 fl (7.5-11.1); PLATELET COUNT 237 K/MM3 (134-434); WHITE BLOOD COUNT 5.6 K/mm3 (4.0-10.0)
[2018-07-14 11:16] LABS: ALBUMIN 3.9 g/dl (3.4-5.0); ANION GAP 10 MMOL/L (8-16); BLOOD UREA NITROGEN 12 mg/dL (7-18); CALCIUM 8.8 mg/dL (8.5-10.1); CHLORIDE 106 mmol/L (98-107); CO2 24 mmol/L (21-32); GLUCOSE,RANDOM 86 mg/dL (74-106); POTASSIUM 4.1 mmol/L (3.5-5.1); SODIUM 140 mmol/L (136-145)
[2018-07-14 11:19] LABS: ALK PHOS 72 U/L (45-117); BILIRUBIN,TOTAL 0.4 mg/dL (0.2-1.0); CREATININE 0.8 mg/dL (0.55-1.3); SGOT/AST 16 U/L (15-37); SGPT/ALT 23 U/L (13-61); TOT PROT 7.5 g/dl (6.4-8.2)
[2018-07-14] MEDS: GABAPENTIN 400 MG CAPSULE (FP) PO SCH ×2 (14:02→22:07)
[2018-07-14 14:10] LABS: RPR REACTIVE 1:1 (NONREACTIVE)
[2018-07-14 15:12] LABS: TREPONEMA ANTIBODY NON REACTIVE (NONREACTIVE)
[2018-07-14] MEDS: THIAMINE HCL 100 MG TABLET (FP) PO SCH (22:07)
[2018-07-14] MEDS: MIRTAZAPINE 15 MG TABLET (FP) PO SCH (22:08)
[2018-07-15] MEDS: chlordiazePOXIDE HCL 25 MG CAPSULE PO SCH ×2 (05:48→10:18)
[2018-07-15] MEDS: GABAPENTIN 400 MG CAPSULE (FP) PO SCH ×3 (05:48→22:37)
[2018-07-15] MEDS: METHADONE HCL 5 MG TABLET (FOR DETOX USE ONLY) PO SCH (10:18)
[2018-07-15] MEDS: PRENATAL VITAMINS W/ FOLIC ACID TABLET (FP) PO SCH (10:18)
[2018-07-15] MEDS: chlordiazePOXIDE HCL 25 MG CAPSULE PO PRN (13:56)
--- NOTE | 2018-07-15 16:15 | PN ---
[facility] CIWA - CIWA Score Nausea/Vomitin-No Nausea/No Vomiting Muscle Tremors: 1-None Visible, but [place] Anxiety: 1-Mildly Anxious Agitation: 1-Slight > Activity Paroxysmal Sweats: 1-Minimal Palms Moist Orientation: 0-Oriented Tacttile Disturbances: 0-None Auditory Disturbances: 0-None Visual Disturbances: 0-None Headache: 0-None Present CIWA-Ar Total Score: 4 S COWS - Scale Resting Pulse: 0= [place] 80 or Below Sweatin= No chills or Flushing Restless Observation: 1= Difficult to Sit Still Pupil Size: 0= Normal to Room Light Bone or Joint Aches: 1= Mild Discomfort Runny Nose/ Eye Tearin= None GI Upset > 30mins: 1= Stomach Cramp Tremor Observation of Outstretched Hands: 0= None Yawning Observation: 0= None Anxiety or Irritability: 0= None Goose Flesh Skin: 0=Smooth Skin COWS Score: 3 S Progress Note (SOAP) Subjective: pt states she is OK with detox protocol O: nl VS and labs Vital Signs - 24 hr 07/14/18 07/14/18 07/15/18 18:21 22:29 00:30 Temperature 97.3 F L 97.5 F L Pulse Rate 86 71 Respiratory 18 18 18 Rate Blood Pressure 121/68 111/61 07/15/18 07/15/18 07/15/18 03:30 07:51 08:56 Temperature 97.3 F L 97.9 F Pulse Rate 90 75 Respiratory 16 18 18 Rate Blood Pressure 116/67 100/66 07/15/18 13:59 Temperature 97.3 F L Pulse Rate 88 Respiratory 20 Rate Blood Pressure 130/70 Laboratory Tests 07/13/18 07/14/18 07/14/18 23:50 07:20 07:20 WBC 5.6 RBC 4.80 Hgb 13.1 Hct 40.0 MCV 83.5 MCH 27.4 MCHC 32.8 RDW 15.0 D Plt Count 237 MPV 8.9 Sodium Potassium Chloride Carbon Dioxide Anion Gap BUN Creatinine Creat Clearance w eGFR Random Glucose Calcium Total Bilirubin AST ALT Alkaline Phosphatase Total Protein Albumin Urine Color Yellow Urine Appearance Clear Urine pH 5.0 Ur Specific [place] 1.028 Urine Protein Negative Urine Glucose (UA) Negative Urine Ketones Negative Urine Blood Negative Urine Nitrite Negative Urine Bilirubin Negative Urine Urobilinogen Negative Ur Leukocyte Esterase Negative RPR Titer T.pallidum Ab (MHA) HIV 1&2 Antibody Screen Negative HIV P24 Antigen Negative 07/14/18 07/14/18 07:20 07:20 WBC RBC Hgb Hct MCV MCH MCHC RDW Plt Count MPV Sodium 140 Potassium 4.1 Chloride 106 Carbon Dioxide 24 Anion Gap 10 BUN 12 Creatinine 0.8 Creat Clearance w eGFR > 60 Random Glucose 86 Calcium 8.8 Total Bilirubin 0.4 AST 16 ALT 23 Alkaline Phosphatase 72 Total Protein 7.5 Albumin 3.9 Urine Color Urine Appearance Urine pH Ur Specific [place] Urine Protein Urine Glucose (UA) Urine Ketones Urine Blood Urine Nitrite Urine Bilirubin Urine Urobilinogen Ur Leukocyte Esterase RPR Titer Reactive 1:1 H T.pallidum Ab (MHA) Non reactive HIV 1&2 Antibody Screen HIV P24 Antigen a/p: continue detox protocols: for ETOH AND OPIOD WITHDRAWAL
[2018-07-15] MEDS: chlordiazePOXIDE 5 MG CAPSULE PO SCH ×2 (17:35→22:37)
[2018-07-15] MEDS: MIRTAZAPINE 15 MG TABLET (FP) PO SCH (22:37)
[2018-07-15] MEDS: THIAMINE HCL 100 MG TABLET (FP) PO SCH (22:37)
[2018-07-16] MEDS: GABAPENTIN 400 MG CAPSULE (FP) PO SCH ×3 (05:22→22:19)
[2018-07-16] MEDS: chlordiazePOXIDE 5 MG CAPSULE PO SCH ×2 (05:22→10:17)
[2018-07-16] MEDS: METHADONE HCL 5 MG TABLET (FOR DETOX USE ONLY) PO SCH (10:17)
[2018-07-16] MEDS: PRENATAL VITAMINS W/ FOLIC ACID TABLET (FP) PO SCH (10:17)
[2018-07-16] MEDS: chlordiazePOXIDE HCL 25 MG CAPSULE PO PRN (12:49)
--- NOTE | 2018-07-16 16:35 | PN ---
[facility] Progress Note (SOAP) Subjective: sweat tremor body aches muscle cramping trouble sleep at night Objective: 07/16/18 16:34 Vital Signs Temperature 98.8 F 07/16/18 13:59 Pulse Rate 91 H 07/16/18 13:59 Respiratory Rate 18 07/16/18 13:59 Blood Pressure 96/71 07/16/18 13:59 O2 Sat by Pulse Oximetry (%) Laboratory Last Values WBC 5.6 K/mm3 (4.0-10.0) 07/14/18 07:20 RBC 4.80 M/mm3 (3.60-5.2) 07/14/18 07:20 Hgb 13.1 GM/dL (10.7-15.3) 07/14/18 07:20 Hct 40.0 % (32.4-45.2) 07/14/18 07:20 MCV 83.5 fl (80-96) 07/14/18 07:20 MCH 27.4 pg (25.7-33.7) 07/14/18 07:20 MCHC 32.8 g/dl (32.0-36.0) 07/14/18 07:20 RDW 15.0 % (11.6-15.6) D 07/14/18 07:20 Plt Count 237 K/MM3 (134-434) 07/14/18 07:20 MPV 8.9 fl (7.5-11.1) 07/14/18 07:20 Sodium 140 mmol/L (136-145) 07/14/18 07:20 Potassium 4.1 mmol/L (3.5-5.1) 07/14/18 07:20 Chloride 106 mmol/L (98-107) 07/14/18 07:20 Carbon Dioxide 24 mmol/L (21-32) 07/14/18 07:20 Anion Gap 10 MMOL/L (8-16) 07/14/18 07:20 BUN 12 mg/dL (7-18) 07/14/18 07:20 Creatinine 0.8 mg/dL (0.55-1.3) 07/14/18 07:20 Creat Clearance w eGFR > 60 (>60) 07/14/18 07:20 Random Glucose 86 mg/dL (74-106) 07/14/18 07:20 Calcium 8.8 mg/dL (8.5-10.1) 07/14/18 07:20 Total Bilirubin 0.4 mg/dL (0.2-1.0) 07/14/18 07:20 AST 16 U/L (15-37) 07/14/18 07:20 ALT 23 U/L (13-61) 07/14/18 07:20 Alkaline Phosphatase 72 U/L (45-117) 07/14/18 07:20 Total Protein 7.5 g/dl (6.4-8.2) 07/14/18 07:20 Albumin 3.9 g/dl (3.4-5.0) 07/14/18 07:20 Urine Color Yellow 07/13/18 23:50 Urine Appearance Clear 07/13/18 23:50 Urine pH 5.0 (5.0-8.0) 07/13/18 23:50 Ur Specific [place] 1.028 (1.001-1.035) 07/13/18 23:50 Urine Protein Negative (NEGATIVE) 07/13/18 23:50 Urine Glucose (UA) Negative (NEGATIVE) 07/13/18 23:50 Urine Ketones Negative (NEGATIVE) 07/13/18 23:50 Urine Blood Negative (NEGATIVE) 07/13/18 23:50 Urine Nitrite Negative (NEGATIVE) 07/13/18 23:50 Urine Bilirubin Negative (<2.0 mg/dL) 07/13/18 23:50 Urine Urobilinogen Negative mg/dL (0.2-1.0) 07/13/18 23:50 Ur Leukocyte Esterase Negative (NEGATIVE) 07/13/18 23:50 RPR Titer Reactive 1:1 (NONREACTIVE) H 07/14/18 07:20 T.pallidum Ab (MHA) Non reactive (NONREACTIVE) 07/14/18 07:20 HIV 1&2 Antibody Screen Negative 07/14/18 07:20 HIV P24 Antigen Negative 07/14/18 07:20 lab noted history of syphilis treated Assessment: 07/16/18 16:35 withdrawal sx Plan: continue detox
[2018-07-16] MEDS: chlordiazePOXIDE HCL 10 MG CAPSULE PO SCH ×2 (17:18→22:18)
[2018-07-16] MEDS: THIAMINE HCL 100 MG TABLET (FP) PO SCH (22:18)
[2018-07-16] MEDS: MIRTAZAPINE 15 MG TABLET (FP) PO SCH (22:18)
[2018-07-17] MEDS: GABAPENTIN 400 MG CAPSULE (FP) PO SCH ×3 (05:25→22:29)
[2018-07-17] MEDS: chlordiazePOXIDE HCL 10 MG CAPSULE PO SCH ×2 (05:26→10:23)
[2018-07-17] MEDS ORDERED: METHADONE HCL 10 MG TABLET (FOR DETOX USE ONLY) PO SCH (10:00)
[2018-07-17] MEDS: PRENATAL VITAMINS W/ FOLIC ACID TABLET (FP) PO SCH (10:23)
--- NOTE | 2018-07-17 15:24 | PN ---
Psychiatric Progress Note Vital Signs: Vital Signs Period Temp Pulse Resp BP Sys/Perez Pulse Ox Last 24 Hr 97.5 F-98.1 F 87-102 - 110-136/66-76 Date of Session: 07/17/18 Chief Complaint:: " This is not true.I never said that I wanted to kill myself. " HPI: Day 5 of detoxification treatment for this 33 y/o female addresing alcohol,cocaine,cannabis and opiate dependence co-morbid with Bipolar Disorder.Psychiatric re-evaluation is sought to assess the patient for suicide risk. According to nursing staff, the patient has been " overheard " making suicidal threats in a telephone conversation with a third alliance party.Hospital course has been benign until now.patient is scheduled for discharge on 07/18/18. ROS: Unremarkable.Patient is visible,pleasant on approach,ambulatory.Coherent and goal-directed.Cognitively intact.No somatic complaints elicited. Current Medications: Active Medications Generic Name Dose Route Start Last Admin Trade Name Freq PRN Reason Stop Dose Admin Acetaminophen 650 mg 07/13/18 16:28 Tylenol - PO Q4H PRN FEVER Al Hydroxide/Mg Hydroxide 30 ml 07/13/18 16:28 Mylanta Oral Suspension - PO Q6H PRN DYSPEPSIA Eucalyptus/Menthol/Phenol/Sorbitol 1 each 07/13/18 16:28 Cepastat Lozenge - MM Q4H PRN SORE THROAT Gabapentin 400 mg 07/14/18 14:00 07/17/18 05:25 Neurontin - PO 400 mg TID EDDA Administration Guaifenesin 10 ml 07/13/18 16:28 Robitussin Dm - PO Q6H PRN COUGH Hydroxyzine Pamoate 50 mg 07/13/18 16:28 Vistaril - PO Q4H PRN AGITATION Ibuprofen 400 mg 07/13/18 16:28 Motrin - PO Q6H PRN PAIN LEVEL 4-6 Loperamide HCl 4 mg 07/13/18 16:28 Imodium - PO Q6H PRN DIARRHEA Magnesium Citrate 300 ml 07/13/18 16:28 Citroma - PO Q48H PRN CONSTIPATION Magnesium Hydroxide 30 ml 07/13/18 16:28 07/16/18 15:52 Milk Of Magnesia - PO 30 ml DAILY PRN Administration CONSTIPATION Melatonin 5 mg 07/13/18 22:00 07/13/18 22:32 Melatonin PO 5 mg HS PRN Administration INSOMNIA Methadone HCl 5 mg 07/18/18 06:00 Dolophine - PO 07/18/18 06:01 DAILY@0600 EDDA Mirtazapine 7.5 mg 07/14/18 22:00 07/16/18 22:18 Remeron - PO 7.5 mg HS EDDA Administration Multivit/Folic Acid/Iron 1 tab 07/14/18 10:00 07/17/18 10:23 Vitamins (Sjr) - PO 1 tab DAILY EDDA Administration Pseudoephedrine/Triprolidine 1 combo 07/13/18 16:28 Actifed - PO TID PRN NASAL CONGESTION Thiamine HCl 100 mg 07/13/18 22:00 07/16/18 22:18 Vitamin B1 - PO 100 mg HS EDDA Administration Medication(s) Change(s): None.Patient is currently on a regimen of gabapentin 400 mg po tid + remeron 7.5 mg po hs.Well tolerated.Ms Medrano indicates that " my medications are working ".No adverse effects. Current Side Effect: No Lab tests ordered: No Lab tests reviewed: Yes Provider note:: Chart reviewed.Progress note by interior design project managerCecilia () : appreciated.Patient is interviewed by Dr Swain + Dr Cody.History taken.Ms Medrano reports that she was upset with her therapist at the [facility] over the issue of psychiatric aftercare.Patient insists that she wants to be referred to [facility] program at [facility].It appears that her counselor at [facility] suggested otherwise and wished to see patient enlist in a long-term rehabilitation program (inpatient).Ms Medrano disagrees." I don't like to be told what to do.I am an adult and I know what is good for me.What I want is outpatient not long- term rehab.I have not mentioned suicide in the conversation.As a patient, I should be given the choice to go to the program that I feel is best for me." Patient exhibits good self-control during interview.Remains coherent,logical and future-oriented.No evidence of psychosis or jerzy.Patient is noted as neatly groomed,well-nourished,appropriate and energetic.Adherent to the treatment plan.Eager to join groups after the psychiatric interview." I want to complete the colors on my drawings." Patient endorses understanding of the importance of aftercare,acknowledges her co-morbidities (substance dependence + bipolar disorder) and expresses her maternal concerns about her children.Ms Medrano DENIES experiencing suicidal ideation,intent or plan.Mental status is stable at time of this examination.NO justification for special observation or transfer to a psychiatric institution for involuntary commitment.Patient is looking forward to discharge tomorrow with transition to OPD care at the [facility] (downstairs). " I have been working well with my counselor until now.I don't see why I would be suicidal now.I feel a lot better.It does not make sense." Patient is at her baseline.Discussed with the Multidisciplinary team. Attempt made, by this typewriter assembly and parts inspector, to establish contact with [facility] therapist Deisy Beck at [phone] : busy line. Total face to face time:: 35 Mental Status Exam - Mental Status Exam Alert and Oriented to: Time, Place, Person Cognitive Function: Good Patient Appearance: Well Groomed (overweight ; pierced nostrils by small metallic rings) Mood: Hopeful, Euthymic Affect: Appropriate, Normal Range Patient Behavior: Appropriate, Cooperative Speech Pattern: Clear, Appropriate Voice Loudness: Normal Thought Process: Intact, Goal Oriented Thought Disorder: Not Present Hallucinations: Denies Suicidal Ideation: Denies Homicidal Ideation: Denies Insight/Judgement: Good Sleep: Well Appetite: Good Muscle strength/Tone: Normal Gait/Station: Normal Psychiatric Treatment Plan - Problem List (1) Alcohol dependence with uncomplicated withdrawal Current Visit: Yes Comment: . (2) Opioid dependence with withdrawal Current Visit: Yes Comment: . (3) Cannabis dependence Current Visit: Yes Comment: . (4) Cocaine dependence Current Visit: Yes Qualifiers: Substance use status: uncomplicated Qualified Code(s): F14.20 - Cocaine dependence, uncomplicated Comment: . (5) Substance induced mood disorder Current Visit: Yes Comment: . (6) Bipolar disorder Current Visit: Yes Qualifiers: Active/Remission status: remission status unspecified Qualified Code(s): F31.9 - Bipolar disorder, unspecified Comment: . (7) Insomnia Current Visit: Yes Comment: .Responds well to mirtazapine at bedtime.
--- NOTE | 2018-07-17 16:25 | PN ---
[facility] Progress Note Note: Asked to see a patient for clarification of her discharge tomorrow.patient was seen by me and today.She is stable,with no complaints,denies suicidal ideas at present.history of superficial cuts-wrists scars( self mutilation) .Patient will complete this program tomorrow,she is willing to continue her further stabilization on outpatient basis at [facility] program.See 's notes for details.
--- NOTE | 2018-07-17 17:14 | PN ---
[facility] Progress Note (SOAP) Subjective: feeling better physically that no sweat no body ache no tremor feeling sad that children been taking away Objective: 07/17/18 17:15 Vital Signs Temperature 97.7 F 07/17/18 13:06 Pulse Rate 102 H 07/17/18 13:06 Respiratory Rate 18 07/17/18 13:06 Blood Pressure 110/69 07/17/18 13:06 O2 Sat by Pulse Oximetry (%) Laboratory Last Values WBC 5.6 K/mm3 (4.0-10.0) 07/14/18 07:20 RBC 4.80 M/mm3 (3.60-5.2) 07/14/18 07:20 Hgb 13.1 GM/dL (10.7-15.3) 07/14/18 07:20 Hct 40.0 % (32.4-45.2) 07/14/18 07:20 MCV 83.5 fl (80-96) 07/14/18 07:20 MCH 27.4 pg (25.7-33.7) 07/14/18 07:20 MCHC 32.8 g/dl (32.0-36.0) 07/14/18 07:20 RDW 15.0 % (11.6-15.6) D 07/14/18 07:20 Plt Count 237 K/MM3 (134-434) 07/14/18 07:20 MPV 8.9 fl (7.5-11.1) 07/14/18 07:20 Sodium 140 mmol/L (136-145) 07/14/18 07:20 Potassium 4.1 mmol/L (3.5-5.1) 07/14/18 07:20 Chloride 106 mmol/L (98-107) 07/14/18 07:20 Carbon Dioxide 24 mmol/L (21-32) 07/14/18 07:20 Anion Gap 10 MMOL/L (8-16) 07/14/18 07:20 BUN 12 mg/dL (7-18) 07/14/18 07:20 Creatinine 0.8 mg/dL (0.55-1.3) 07/14/18 07:20 Creat Clearance w eGFR > 60 (>60) 07/14/18 07:20 Random Glucose 86 mg/dL (74-106) 07/14/18 07:20 Calcium 8.8 mg/dL (8.5-10.1) 07/14/18 07:20 Total Bilirubin 0.4 mg/dL (0.2-1.0) 07/14/18 07:20 AST 16 U/L (15-37) 07/14/18 07:20 ALT 23 U/L (13-61) 07/14/18 07:20 Alkaline Phosphatase 72 U/L (45-117) 07/14/18 07:20 Total Protein 7.5 g/dl (6.4-8.2) 07/14/18 07:20 Albumin 3.9 g/dl (3.4-5.0) 07/14/18 07:20 Urine Color Yellow 07/13/18 23:50 Urine Appearance Clear 07/13/18 23:50 Urine pH 5.0 (5.0-8.0) 07/13/18 23:50 Ur Specific [place] 1.028 (1.001-1.035) 07/13/18 23:50 Urine Protein Negative (NEGATIVE) 07/13/18 23:50 Urine Glucose (UA) Negative (NEGATIVE) 07/13/18 23:50 Urine Ketones Negative (NEGATIVE) 07/13/18 23:50 Urine Blood Negative (NEGATIVE) 07/13/18 23:50 Urine Nitrite Negative (NEGATIVE) 07/13/18 23:50 Urine Bilirubin Negative (<2.0 mg/dL) 07/13/18 23:50 Urine Urobilinogen Negative mg/dL (0.2-1.0) 07/13/18 23:50 Ur Leukocyte Esterase Negative (NEGATIVE) 07/13/18 23:50 RPR Titer Reactive 1:1 (NONREACTIVE) H 07/14/18 07:20 T.pallidum Ab (MHA) Non reactive (NONREACTIVE) 07/14/18 07:20 HIV 1&2 Antibody Screen Negative 07/14/18 07:20 HIV P24 Antigen Negative 07/14/18 07:20 lab noted Assessment: 07/17/18 17:15 mild withdrawal sx Plan: medically supervised detox
[2018-07-17] MEDS: THIAMINE HCL 100 MG TABLET (FP) PO SCH (22:29)
[2018-07-17] MEDS: MIRTAZAPINE 15 MG TABLET (FP) PO SCH (22:29)
[2018-07-17] MEDS: MELATONIN 5 MG TABLETS PO PRN (22:30)
[2018-07-18] MEDS: GABAPENTIN 400 MG CAPSULE (FP) PO SCH (05:32)
[2018-07-18] MEDS ORDERED: METHADONE HCL 5 MG TABLET (FOR DETOX USE ONLY) PO SCH (06:00)
[2018-07-18] MEDS: PRENATAL VITAMINS W/ FOLIC ACID TABLET (FP) PO SCH (09:28)
[2018-07-18 10:07] VITALS: BP 137/83; PULSE 99; TEMP 97.3
--- NOTE | 2018-07-18 16:20 | DS ---
[facility] Detox Discharge Summary Admission Date: 07/13/18 Discharge Date: 07/18/18 - History Present History: Alcohol Dependence, Opioid Dependence - Physical Exam Results Vital Signs: Vital Signs Temperature 97.3 F L 07/18/18 10:00 Pulse Rate 99 H 07/18/18 10:00 Respiratory Rate 18 07/18/18 10:00 Blood Pressure 137/83 07/18/18 10:00 O2 Sat by Pulse Oximetry (%) Pertinent Admission Physical Exam Findings: alcohol and opiate withdrawal sx Vital Signs Temperature 97.3 F L 07/18/18 10:00 Pulse Rate 99 H 07/18/18 10:00 Respiratory Rate 18 07/18/18 10:00 Blood Pressure 137/83 07/18/18 10:00 O2 Sat by Pulse Oximetry (%) Laboratory Last Values WBC 5.6 K/mm3 (4.0-10.0) 07/14/18 07:20 RBC 4.80 M/mm3 (3.60-5.2) 07/14/18 07:20 Hgb 13.1 GM/dL (10.7-15.3) 07/14/18 07:20 Hct 40.0 % (32.4-45.2) 07/14/18 07:20 MCV 83.5 fl (80-96) 07/14/18 07:20 MCH 27.4 pg (25.7-33.7) 07/14/18 07:20 MCHC 32.8 g/dl (32.0-36.0) 07/14/18 07:20 RDW 15.0 % (11.6-15.6) D 07/14/18 07:20 Plt Count 237 K/MM3 (134-434) 07/14/18 07:20 MPV 8.9 fl (7.5-11.1) 07/14/18 07:20 Sodium 140 mmol/L (136-145) 07/14/18 07:20 Potassium 4.1 mmol/L (3.5-5.1) 07/14/18 07:20 Chloride 106 mmol/L (98-107) 07/14/18 07:20 Carbon Dioxide 24 mmol/L (21-32) 07/14/18 07:20 Anion Gap 10 MMOL/L (8-16) 07/14/18 07:20 BUN 12 mg/dL (7-18) 07/14/18 07:20 Creatinine 0.8 mg/dL (0.55-1.3) 07/14/18 07:20 Creat Clearance w eGFR > 60 (>60) 07/14/18 07:20 Random Glucose 86 mg/dL (74-106) 07/14/18 07:20 Calcium 8.8 mg/dL (8.5-10.1) 07/14/18 07:20 Total Bilirubin 0.4 mg/dL (0.2-1.0) 07/14/18 07:20 AST 16 U/L (15-37) 07/14/18 07:20 ALT 23 U/L (13-61) 07/14/18 07:20 Alkaline Phosphatase 72 U/L (45-117) 07/14/18 07:20 Total Protein 7.5 g/dl (6.4-8.2) 07/14/18 07:20 Albumin 3.9 g/dl (3.4-5.0) 07/14/18 07:20 Urine Color Yellow 07/13/18 23:50 Urine Appearance Clear 07/13/18 23:50 Urine pH 5.0 (5.0-8.0) 07/13/18 23:50 Ur Specific [place] 1.028 (1.001-1.035) 07/13/18 23:50 Urine Protein Negative (NEGATIVE) 07/13/18 23:50 Urine Glucose (UA) Negative (NEGATIVE) 07/13/18 23:50 Urine Ketones Negative (NEGATIVE) 07/13/18 23:50 Urine Blood Negative (NEGATIVE) 07/13/18 23:50 Urine Nitrite Negative (NEGATIVE) 07/13/18 23:50 Urine Bilirubin Negative (<2.0 mg/dL) 07/13/18 23:50 Urine Urobilinogen Negative mg/dL (0.2-1.0) 07/13/18 23:50 Ur Leukocyte Esterase Negative (NEGATIVE) 07/13/18 23:50 RPR Titer Reactive 1:1 (NONREACTIVE) H 07/14/18 07:20 T.pallidum Ab (MHA) Non reactive (NONREACTIVE) 07/14/18 07:20 HIV 1&2 Antibody Screen Negative 07/14/18 07:20 HIV P24 Antigen Negative 07/14/18 07:20 lab noted - Treatment Hospital Course: Detox Protocol Followed, Detoxed Safely, Responded well, Discharged Condition Good, Rehab Referral Accepted Patient has Accepted a Rehab Referral to: positive direction - Medication Discharge Medications: Ambulatory Orders Mirtazapine [Remeron -] 7.5 mg PO HS #14 tablet 03/26/18 Naltrexone HCl [Revia -] 50 mg PO DAILY 07/13/18 Valacyclovir HCl [Valtrex] 1,000 mg PO HS 07/13/18 Gabapentin 400 mg PO TID #90 capsule 07/17/18 - Diagnosis (1) Alcohol dependence with uncomplicated withdrawal Status: Acute (2) Opioid dependence with withdrawal Status: Acute (3) Bipolar disorder Status: Suspected Qualifiers: Active/Remission status: remission status unspecified Qualified Code(s): F31.9 - Bipolar disorder, unspecified (4) Sedative, hypnotic, or anxiolytic withdrawal Status: Acute - AMA Did Patient Leave Against Medical Advice: No
== END 2018-07-18 09:42 | disposition home or self-care (01) | DRG 773 ==
LOC: YASAS 12:38 → Y6N 16:55
PROC: HZ2ZZZZ Detoxification Services for Substance Abuse Treatment (ICD-10-PCS; principal; 2018-07-16)
DX: F11.23 Opioid dependence with withdrawal (principal); F10.230 Alcohol dependence with withdrawal, uncomplicated; F13.230 Sedative, hypnotic or anxiolytic dependence with withdrawal, uncomplicated; F14.20 Cocaine dependence, uncomplicated; F12.20 Cannabis dependence, uncomplicated; F31.9 Bipolar disorder, unspecified; F19.24 Other psychoactive substance dependence with psychoactive substance-induced mood disorder; F19.282 Other psychoactive substance dependence with psychoactive substance-induced sleep disorder; G47.00 Insomnia, unspecified; Z91.5 Personal history of self-harm; Z86.19 Personal history of other infectious and parasitic diseases
CPT/HCPCS: 36415; 80053; 81003; 85027; 86593; 86780; 87389; 93005; 93010

== ENCOUNTER 2019-04-27 21:11 | Emergency (ER) | payer SELFPAY ==
[2019-04-27] MEDS ORDERED: ALBUTEROL SO4 2.5/IPRATROPIUM 0.5 INH SOL 3 ML VIAL.NEB. NEB ONE ×2 (21:22→21:26)
[2019-04-27 21:23] VITALS: BP 123/83; PULSE 98; TEMP 97.7; BMI 32.9
--- NOTE | 2019-04-27 21:24 | PDOC ---
Rapid Medical Evaluation Chief Complaint: Asthma Time Seen by Provider: 04/27/19 21:16 Medical Evaluation: Allergies Allergy/AdvReac Type Severity Reaction Status Date / Time No Known Allergies Allergy Verified 07/13/18 15:11 Vital Signs Temp Pulse Resp BP Pulse Ox 97.7 F 98 H 24 H 123/83 98 04/27/19 21:19 04/27/19 21:19 04/27/19 21:19 04/27/19 21:19 04/27/19 21:19 04/27/19 21:23 I have performed a brief in-person evaluation of this patient. The patient presents with a chief complaint of: asthma Pertinent physical exam findings:stable and in NAD, non-focal mild wheezing I have ordered the following: duoneb The patient will proceed to the ED for further evaluation.
[2019-04-27] MEDS ORDERED: predniSONE 20 MG TABLET (UD) PO ONE (21:58)
[2019-04-27] MEDS ORDERED: predniSONE 20 MG TABLET (UD) ONE (22:05)
--- NOTE | 2019-04-27 22:05 | PDOC ---
History of Present Illness - General Chief Complaint: Asthma Stated Complaint: CHEST TIGHTNESS/DIFFICULTY BREATHING/NAUSEA Time Seen by Provider: 04/27/19 21:16 History Source: Patient Exam Limitations: No Limitations - History of Present Illness Initial Comments: 04/27/19 21:58 33y F hx of asthma presnents with complaint of sob. Pt had cough productive of yellowish sputum 2 days ago, then started having increased coughing, wheezing and chest tightness. Pt notes her sob got much worse after she went to the pool today with her kids. Pt has not taken any meds as she has not had an exacerbation in approx 5-6 years. Triggers for her include weather changes, sometimes AC. Pt denies any fever/chills, chest pain, hemoptysis, nasal congestion, body aches , diarrhea, melena bpr, back pain, abdominal pain, leg swelling, calf pain. Pt not on OCPs. No recent travel or sick contacts. NO recent surgeries. Constitutional - no reported Fever, Chills, HEENT: no reported vision changes, sore throat Respiratory: no reported cough, sob, hemoptysis Cardiac: no reported chest pain, palpitations, light headedness, leg swelling Abd/GI: no reported abd pain, nausea, vomiting, blood per rectum, melena, diarrhea : no reported dysuria, frequency, discharge Musculskelatal - no reported back pain, joint swelling skin - no reported bruising, erythema, rash neurological: no reported headache, numbness, focal weakness, tingling, ataxia, hematologic: no reported easy bruising, easy bleeding GENERAL: The patient is awake, alert, and fully oriented, Nontoxic - in no acute distress. HEAD: Normocephalic, atraumatic. EYES: extraocular movements intact, sclera anicteric, conjunctiva clear. ENT: Normal voice, Moist mucous membranes. NECK: Normal range of motion, supple LUNGS: scattered wheezing bilaterally, mild respiratory distress but speaking complete sentences HEART: Regular rate and rhythm, normal S1 and S2 without murmur, rub or gallop. ABDOMEN: Soft, nontender, No guarding, no rebound. No CVA tenderness EXTREMITIES: Normal range of motion, no edema, no calf tenderness, neg homans NEUROLOGICAL: No facial assymetry, Normal speech, PSYCH: Normal mood, normal affect. SKIN: Warm, Dry, normal turgor, dx asthma exacerbation, no clinical signs of pneumonia albuterol, prednisone anticipate dc with pmd fu Past History - Past Medical History Allergies/Adverse Reactions: Allergies Allergy/AdvReac Type Severity Reaction Status Date / Time No Known Allergies Allergy Verified 07/13/18 15:11 Home Medications: Ambulatory Orders Mirtazapine [Remeron -] 7.5 mg PO HS #14 tablet 03/26/18 Naltrexone HCl [Revia -] 50 mg PO DAILY 07/13/18 Valacyclovir HCl [Valtrex] 1,000 mg PO HS 07/13/18 Gabapentin 400 mg PO TID #90 capsule 07/17/18 Anemia: No Asthma: Yes Cancer: No Cardiac Disorders: No CVA: No COPD: No CHF: No DVT: No Dementia: No Diabetes: No GI Disorders: No Disorders: No HTN: No Hypercholesterolemia: No Kidney Stones: No Liver Disease: No Psychiatric Problems: Yes (depression) Seizures: Yes (last seizure was 01/15) Thyroid Disease: No - Surgical History Abdominal Surgery: No Appendectomy: No Cardiac Surgery: No Cholecystectomy: No Lung Surgery: No Neurologic Surgery: No Orthopedic Surgery: No - Reproductive History PID: No - Suicide/Smoking/Psychosocial Hx Smoking Status: No Smoking History: Never smoked Have you smoked in the past 12 months: No Number of Cigarettes Smoked Daily: 1 If you are a former smoker, when did you quit?: 2013 'Breaking Loose' booklet given: 10/10/15 Hx Alcohol Use: Yes Drug/Substance Use Hx: Yes Substance Use Type: Alcohol, Cocaine, Marijuana, Opiates Hx Substance Use Treatment: Yes Respiratory Specific PMHX - Complaint Specific PMHX Pneumonia: No TB (Tuberculosis): No *Physical Exam - Vital Signs Last Vital Signs Temp Pulse Resp BP Pulse Ox 97.7 F 98 H 24 H 123/83 98 04/27/19 21:19 04/27/19 21:19 04/27/19 21:19 04/27/19 21:19 04/27/19 21:19 ED Treatment Course - Medications Given in the ED: ED Medications Discontinued Medications Generic Name Dose Route Start Last Admin Trade Name Freq PRN Reason Stop Dose Admin Albuterol/Ipratropium 1 amp 04/27/19 21:22 04/27/19 21:44 Duoneb - NEB 04/27/19 21:23 1 amp ONCE ONE Administration *DC/Admit/Observation/Transfer Diagnosis at time of Disposition: Asthma exacerbation Qualifiers: Asthma severity: mild Asthma persistence: intermittent Qualified Code(s): J45.21 - Mild intermittent asthma with (acute) exacerbation - Discharge Dispostion Disposition: HOME Condition at time of disposition: Improved Decision to Admit order: No - Referrals Referrals: [facility] [place] [Provider Group] - Patient Instructions Printed Discharge Instructions: Asthma -- Adult Additional Instructions: Return to the emergency department immediately with ANY new, persistent or worsening symptoms including worsening shortness of breath, fevers, pain your chest any other concerns. Use the albuterol as prescribed, take the prednisone daily. You MUST call and follow up with your doctor in 3-4 days for further evaluation of your symptoms. Results were discussed with you. Please make sure your doctor reviews the results of your emergency evaluation. - Post Discharge Activity
[2019-04-27] MEDS ORDERED: ALBUTEROL SO4 0.083% IH SOL 2.5 MG/3 ML VIAL.NEB. NEB ONE (22:25)
--- NOTE | 2019-05-01 14:58 | EKG ---
Test Reason : Blood Pressure : / mmHG Vent. Rate : 085 BPM Atrial Rate : 085 BPM P-R Int : 138 ms QRS Dur : 084 ms QT Int : 378 ms P-R-T Axes : 055 030 045 degrees QTc Int : 449 ms NORMAL SINUS RHYTHM NORMAL ECG WHEN COMPARED WITH ECG OF 13-JUL-2018 20:06, NO SIGNIFICANT CHANGE WAS FOUND Confirmed by MD AN, CHINA ([id number]) on 05/01/2019 2:58:18 PM Referred By: Confirmed By:CHINA NOLAN MD
== END 2019-04-27 22:48 | disposition home or self-care (01) ==
LOC: JER 21:11 → JERFT 21:11
PROC: 3E0F7GC Introduction of Other Therapeutic Substance into Respiratory Tract, Via Natural or Artificial Opening (ICD-10-PCS; principal; 2019-04-27)
DX: J45.21 Mild intermittent asthma with (acute) exacerbation (principal)
CPT/HCPCS: 93005; 93010; 99281-25

== ENCOUNTER 2019-05-05 15:05 | Emergency (ER) | payer OTHER ==
[2019-05-05 15:21] VITALS: BMI 29.2
[2019-05-05] MEDS ORDERED: SODIUM CHLORIDE 1,000 ML IV STA (16:39)
[2019-05-05] MEDS ORDERED: FAMOTIDINE 20 MG/50 ML IVPB 20 MG/50 ML MG IVPB ONE ×2 (16:39→16:55)
[2019-05-05] MEDS ORDERED: ONDANSETRON 4 MG/2 ML VIAL IVPUSH ONE (16:44)
--- NOTE | 2019-05-05 16:46 | PDOC ---
History of Present Illness - General Chief Complaint: Nausea/Vomiting Stated Complaint: VOMITING Time Seen by Provider: 05/05/19 16:05 History Source: Patient - History of Present Illness Initial Comments: 05/05/19 16:46 Pt is a 33y/o F female with prior hx of 2C-sections presenting with 3days of nausea &vomiting accompanied by 1 day of epigastric pain.the pain is described as constant,shooting and non-radiating pain.LMP on 03/09 and +home test last week. She has had approx 12 episodes of non-bloody emesis over the last 3 days & some non-bloody diarrhea.She denies any fevers,chills, headaches,chest pain,dysuria, hematuria or sob. Pt occasionally smokes marijuana (approx. once a week) Last use 05/03. Of note, pt. has indicated plans for a therapeutic sometime in the next week. 05/06/19 00:27 05/06/19 00:28 05/06/19 00:31 Past History - Past Medical History Allergies/Adverse Reactions: Allergies Allergy/AdvReac Type Severity Reaction Status Date / Time No Known Allergies Allergy Verified 05/05/19 15:21 Home Medications: Ambulatory Orders RX: Albuterol 0.083% Nebulizer Elizabeth [Ventolin 0.083% Nebulizer Soln -] 1 neb NEB Q4H PRN #30 vial 04/27/19 RX: Albuterol Sulfate Inhaler - [Ventolin HFA Inhaler -] 1 - 2 inh PO Q4H PRN # 1 inhaler 04/27/19 Anemia: No Asthma: Yes Cancer: No Cardiac Disorders: No CVA: No COPD: No CHF: No DVT: No Dementia: No Diabetes: No GI Disorders: No Disorders: No HTN: No Hypercholesterolemia: No Kidney Stones: No Liver Disease: No Psychiatric Problems: Yes (depression) Seizures: Yes (last seizure was 01/15) Thyroid Disease: No - Surgical History Abdominal Surgery: No Appendectomy: No Cardiac Surgery: No Cholecystectomy: No Lung Surgery: No Neurologic Surgery: No Orthopedic Surgery: No - Reproductive History PID: No - Suicide/Smoking/Psychosocial Hx Smoking Status: No Smoking History: Never smoked Have you smoked in the past 12 months: No Number of Cigarettes Smoked Daily: 1 If you are a former smoker, when did you quit?: 2013 'Breaking Loose' booklet given: 10/10/15 Hx Alcohol Use: Yes Drug/Substance Use Hx: Yes Substance Use Type: Alcohol, Cocaine, Marijuana, Opiates Hx Substance Use Treatment: Yes Review of Systems - Review of Systems All Other Systems: Reviewed and Negative *Physical Exam - Vital Signs Last Vital Signs Temp Pulse Resp BP Pulse Ox 97 F L 92 H 18 111/66 99 05/05/19 15:19 05/05/19 15:19 05/05/19 15:19 05/05/19 15:19 05/05/19 15:19 - Physical Exam General Appearance: Yes: Moderate Distress HEENT: positive: EOMI Respiratory/Chest: positive: Lungs Clear, Normal Breath Sounds. negative: Respiratory Distress, Crackles, Rales, Wheezing Cardiovascular: positive: Regular Rhythm, Regular Rate, S1, S2. negative: JVD Gastrointestinal/Abdominal: positive: Normal Bowel Sounds (Tenderness in epigastric and RLQ. No CVA tenderness. ), Tenderness. negative: Pulsatile Mass , Distended, Mass ED Treatment Course - LABORATORY CBC & Chemistry Diagram: 05/05/19 16:51 05/05/19 17:30 Medical Decision Making - Medical Decision Making 05/05/19 17:13 33y/o F , pmhx of 2 c-sections. LMP 03/09. Currently by home test presenting with 3 days of nausea and vomiting and 1 day of abdominal pain. DDx:Hypermesis gravidarum vs ectopic pregancy vs PUD vs pancreatic vs Ovarian torsion vs appendicitis Labs; CBC,CMP,Lipase,pt/ptt/inr, type and screen Imaging: TVUS 05/05/19 18:29 Pt. revaluated. nausea and pain are unresolved. RLQ pain tenderness elicited on exam and guarding is now present concerning for worsening pathological process including appendicitis.U/S still pending. Will give IV tylenol and reassess. 05/05/19 18:39 05/05/19 20:36 U/s shows viable IUP. pt. consented for mri abdomen and pelvis 05/05/19 22:19: Pt reassesed pain is better waiting for read on mri from radiologist. Pt. signed out to Dr. Mckinley Lancaster at end of shit 12:00a.isatu 05/06/19 00:32 *DC/Admit/Observation/Transfer Diagnosis at time of Disposition: Abdominal pain Qualifiers: Abdominal location: right lower quadrant Qualified Code(s): R10.31 - Right lower quadrant pain - Referrals - Patient Instructions - Post Discharge Activity
[2019-05-05 17:02] LABS: BASO % 0.6 % (0-2.0); EOS % 0.6 % (0-4.5); HEMATOCRIT 47.2 % (32.4-45.2); HEMOGLOBIN 15.3 GM/dL (10.7-15.3); LYMPH % 13.9 % (8-40); MCH 27.4 pg (25.7-33.7); MCHC 32.5 g/dl (32.0-36.0); MEAN CELL VOLUME 84.2 fl (80-96); MEAN PLT VOLUME 8.6 fl (7.5-11.1); MONO % 4.9 % (3.8-10.2); PLATELET COUNT 287 K/MM3 (134-434); RBC 5.61 M/mm3 (3.60-5.2); RDW 13.7 % (11.6-15.6); WHITE BLOOD COUNT 11.1 K/mm3 (4.0-10.0)
[2019-05-05 17:58] LABS: INR 1.15 (0.83-1.09); PROTHROMBIN TIME (PATIENT) 13.6 SEC (9.7-13.0)
[2019-05-05 18:00] LABS: ACTIVATED PTT 34.6 SECONDS (25.2-36.5)
[2019-05-05] MEDS ORDERED: ACETAMINOPHEN 1000 MG/100 ML VIAL (NON FORMULARY) IVPB ONE (18:22)
[2019-05-05] MEDS ORDERED: ACETAMINOPHEN INJECTION 100 ML IVPB ONE (18:25)
--- NOTE | 2019-05-05 18:37 | PDOC ---
Attending Attestation - Resident Resident Name: Juana Tran - ED Attending Attestation I have performed the following: I have examined & evaluated the patient, The case was reviewed & discussed with the resident, I agree w/resident's findings & plan, Exceptions are as noted - HPI HPI: 05/05/19 18:32 Ms jones is a 33 yo F who presents with a complaint of abdominal pain, nausea and vomiting Patient is female with prior hx of 2 C-sections presenting with 3 days of nausea & vomiting accompanied by 1 day of epigastric pain. Pt reports pain which began today Pain is 8/10, described as constant,shooting and non-radiating pain. Pt had approximately 12 episodes of non-bloody emesis over the last 3 days & some non-bloody diarrhea. She denies any fevers, chills, dysuria, hematuria, sob - Physicial Exam PE: 05/05/19 18:32 GENERAL: The patient is in no acute distress, patient appears uncomfortable. ENT: Ears normal, nares patent, oropharynx clear without exudates. Moist mucous membranes. NECK: Normal range of motion, supple LUNGS: Breath sounds equal, clear to auscultation bilaterally. No wheezes, and no crackles. HEART:Regular rate and rhythm, normal S1 and S2 without murmur, rub or gallop. ABDOMEN: Soft, RLQ tenderness to palpation, no involuntary guarding, no rebound EXTREMITIES: Normal range of motion, no edema. NEUROLOGICAL: Cranial nerves II through XII grossly intact. Normal speech. No focal neurological deficits. SKIN: Warm, Dry, normal turgor, no rashes or lesions noted. - Medical Decision Making 05/05/19 18:37 EKG - Twelve-lead EKG was performed and reviewed by me. There is normal sinus rhythm with a normal rate 68bpm. The axis is normal. The intervals are normal. There are no ST or T wave abnormalities. Impression: Normal twelve-lead EKG 33 yo F presenting with nausea, followed by vomiting Pt is Pt has tenderness on palpation of the RLQ Will do: Labs US Tylenol/Pepcid/Anti emetics Consider Surgical consult Consider ? Admit for serial abd exams Signed out to overnight team
[2019-05-05 19:23] LABS: ALBUMIN 3.5 g/dl (3.4-5.0); BILIRUBIN,TOTAL 0.5 mg/dL (0.2-1); BLOOD UREA NITROGEN 8.9 mg/dL (7-18); CALCIUM 8.3 mg/dL (8.5-10.1); CREATININE 0.7 mg/dL (0.55-1.3); POTASSIUM 3.9 mmol/L (3.5-5.1); TOT PROT 6.8 g/dl (6.4-8.2)
[2019-05-05 19:48] VITALS: TEMP 98.2
--- NOTE | 2019-05-06 00:10 | PDOC ---
*Physical Exam - Vital Signs Last Vital Signs Temp Pulse Resp BP Pulse Ox 98.2 F 70 18 102/57 L 98 05/05/19 19:15 05/05/19 19:15 05/05/19 19:15 05/05/19 19:15 05/05/19 19:15 - Physical Exam General Appearance: Yes: Nourished, Appropriately Dressed, Mild Distress HEENT: positive: Normal Voice, Symmetrical Neck: positive: Trachea midline, Normal Thyroid, Supple Respiratory/Chest: positive: Lungs Clear, Normal Breath Sounds Cardiovascular: positive: Regular Rhythm, Regular Rate Gastrointestinal/Abdominal: positive: Normal Bowel Sounds, Tender (RLQ tender to palpation), Flat, Soft Musculoskeletal: positive: Normal Inspection Integumentary: positive: Normal Color, Dry, Warm Neurologic: positive: Fully Oriented, Alert, Normal Mood/Affect, Normal Response ED Treatment Course - LABORATORY CBC & Chemistry Diagram: 05/05/19 16:51 05/05/19 17:30 - ADDITIONAL ORDERS Additional order review: Laboratory Results 05/05/19 05/05/19 05/05/19 17:30 17:30 17:13 PT with INR 13.60 H INR 1.15 H PTT (Actin FS) 34.6 Sodium 137 Potassium 3.9 Chloride 106 Carbon Dioxide 23 Anion Gap 7 L BUN 8.9 Creatinine 0.7 Est GFR (CKD-EPI)AfAm 131.94 Est GFR (CKD-EPI)NonAf 113.84 Random Glucose 94 Calcium 8.3 L Total Bilirubin 0.5 AST 8 L ALT 13 Alkaline Phosphatase 66 Total Protein 6.8 Albumin 3.5 Lipase 83 Beta HCG, Quant 29323.5 Blood Type A POSITIVE Antibody Screen Positive Antibody Identification Cold no-spesific ant Antigen Identification No Result Required. 05/05/19 16:51 PT with INR INR PTT (Actin FS) Sodium Cancelled Potassium Cancelled Chloride Cancelled Carbon Dioxide Cancelled Anion Gap Cancelled BUN Cancelled Creatinine Cancelled Est GFR (CKD-EPI)AfAm Cancelled Est GFR (CKD-EPI)NonAf Cancelled Random Glucose Cancelled Calcium Cancelled Total Bilirubin Cancelled AST Cancelled ALT Cancelled Alkaline Phosphatase Cancelled Total Protein Cancelled Albumin Cancelled Lipase Cancelled Beta HCG, Quant Blood Type Antibody Screen Antibody Identification Antigen Identification 05/05/19 16:51 RBC 5.61 H MCV 84.2 MCHC 32.5 RDW 13.7 MPV 8.6 Neutrophils % 80.0 D Lymphocytes % 13.9 D Monocytes % 4.9 Eosinophils % 0.6 Basophils % 0.6 - Medications Given in the ED: ED Medications Discontinued Medications Generic Name Dose Route Start Last Admin Trade Name Bin PRN Reason Stop Dose Admin Acetaminophen 1,000 mg 05/05/19 18:22 05/05/19 18:26 Ofirmev Injection - IVPB 05/05/19 18:23 1,000 mg ONCE ONE Administration Famotidine/Sodium Chloride 20 mg in 50 mls @ 100 mls/hr 05/05/19 16:39 17:00 Pepcid 20 Mg Premixed Ivpb - IVPB 05/05/19 17:08 100 mls/hr ONCE ONE Administration Sodium Chloride 1,000 mls @ 1,000 mls/hr 05/05/19 16:39 05/05/19 16:51 Normal Saline - IV 05/05/19 17:38 1,000 mls/hr ASDIR STA Administration Ondansetron HCl 4 mg 05/05/19 16:44 05/05/19 16:51 Zofran Injection IVPUSH 05/05/19 16:45 4 mg ONCE ONE Administration Medical Decision Making - Medical Decision Making 05/06/19 00:06 Received sign-out from Dr. Tran. 33F complains 3d n/v, new onset abd pain today, , currently with plans for possible therapeutic . New onset N/V this . Gave 1000mg tylenol 4.5 hrs ago, Zofran, now worsened. Concern for appendicitis. Labs WNL. Pending MRI abd read. 05/06/19 01:05 MRI shows no acute appendicitis. Patient likely experiencing pain and nausea 2/2 abdominal pressure and stretching from . Will discharge home with return precautions and follow-up instructions with OBGYN. *DC/Admit/Observation/Transfer Diagnosis at time of Disposition: Abdominal pain Qualifiers: Abdominal location: right lower quadrant Qualified Code(s): R10.31 - Right lower quadrant pain - Discharge Dispostion Disposition: HOME Condition at time of disposition: Improved - Referrals - Patient Instructions Printed Discharge Instructions: DI for Nausea -- Adult, DI for Vomiting -- Adult Additional Instructions: Today you were evaluated for abdominal pain and concern for appendicitis. We looked at samples of your blood for any problems and signs of infection, and did not find any issues. We also obtained an MRI image of your abdomen to check your appendix for appendicitis, but your appendix looked normal. We checked for the most serious causes of your pain and did not find the source, and so your pain is likely related to the stretching of your abdomen from . If you experience worsening abdominal pain, new vaginal bleeding, weakness, fever, nausea/vomiting, palpitations, or any new or concerning symptoms, please return to an emergency room immediately. If you continue to experience this pain , try taking over the counter Tylenol (paracetamol) from your local drug store and follow the instructions on the label. Please schedule a visit with your OBGYN in the next 1-2 days for further work-up of your pain. - Post Discharge Activity
[2019-05-06 02:38] VITALS: BP 108/69; PULSE 68
--- NOTE | 2019-05-06 13:05 | EKG ---
Test Reason : Blood Pressure : / mmHG Vent. Rate : 068 BPM Atrial Rate : 068 BPM P-R Int : 128 ms QRS Dur : 080 ms QT Int : 440 ms P-R-T Axes : 053 027 036 degrees QTc Int : 467 ms NORMAL SINUS RHYTHM NORMAL ECG WHEN COMPARED WITH ECG OF 27-APR-2019 21:09, NO SIGNIFICANT CHANGE WAS FOUND Confirmed by MD AUGUSTIN MOYSES ([id number]) on 05/06/2019 1:05:39 PM Referred By: Confirmed By:BRANDON AUGUSTIN MD
== END 2019-05-06 02:40 | disposition home or self-care (01) ==
LOC: JER 15:05
PROC: 3E0337Z Introduction of Electrolytic and Water Balance Substance into Peripheral Vein, Percutaneous Approach (ICD-10-PCS; principal; 2019-05-05)
PROC: 3E033GC Introduction of Other Therapeutic Substance into Peripheral Vein, Percutaneous Approach (ICD-10-PCS; 2019-05-05)
PROC: 3E033NZ Introduction of Analgesics, Hypnotics, Sedatives into Peripheral Vein, Percutaneous Approach (ICD-10-PCS; 2019-05-05)
PROC: 3E033GC Introduction of Other Therapeutic Substance into Peripheral Vein, Percutaneous Approach (ICD-10-PCS; 2019-05-05)
DX: O26.891 Other specified pregnancy related conditions, first trimester (principal); R10.31 Right lower quadrant pain; Z3A.01 Less than 8 weeks gestation of pregnancy
CPT/HCPCS: 36415; 72195-TC; 74181-TC; 76830-TC; 80053; 83690; 84702; 85025; 85610; 85730; 86850; 86870; 86900; 86901; 86902; 93005; 93010; 96361; 96365; 96375; 99283-25; J0131; J7030

== ENCOUNTER 2019-08-09 16:48 | Inpatient (IN) | payer OTHER ==
[2019-08-09] MEDS ORDERED: methylPREDNISolone NA SUCC 125 MG/2 ML VIAL IVPUSH ONE (16:53)
--- NOTE | 2019-08-09 16:55 | PDOC ---
Rapid Medical Evaluation Time Seen by Provider: 08/09/19 16:52 Medical Evaluation: Allergies Allergy/AdvReac Type Severity Reaction Status Date / Time No Known Allergies Allergy Verified 05/05/19 15:21 08/09/19 16:54 Pt c/o: sob , wheezing and cough x 2-3 days , no improvement with nebs, inhaler and 1 dose of prednisone (?mg), nonsmoker, no intubations Patient on brief exam: chris insp/exp wheeze, with intercostal muscle usage, vss Patient ordered for: nebs and solumedrol Patient to proceed to the ED Discharge Disposition - Diagnosis Asthma exacerbation - Discharge Dispostion Condition at time of disposition: Stable - Referrals - Patient Instructions - Post Discharge Activity
[2019-08-09] MEDS ORDERED: ALBUTEROL SO4 2.5/IPRATROPIUM 0.5 INH SOL 3 ML VIAL.NEB. NEB ONE ×2 (17:03→17:35)
--- NOTE | 2019-08-09 17:08 | PDOC ---
History of Present Illness - General Stated Complaint: SHORTNESS OF BREATHE Time Seen by Provider: 08/09/19 16:52 Past History - Past Medical History Allergies/Adverse Reactions: Allergies Allergy/AdvReac Type Severity Reaction Status Date / Time No Known Allergies Allergy Verified 08/09/19 17:13 Home Medications: Ambulatory Orders Albuterol 0.083% Nebulizer Elizabeth [Ventolin 0.083% Nebulizer Soln -] 1 neb NEB Q4H PRN #30 vial 04/27/19 Albuterol Sulfate Inhaler - [Ventolin HFA Inhaler -] 1 - 2 inh PO Q4H PRN #1 inhaler 04/27/19 Albuterol Sulfate Inhaler - [Ventolin Hfa Inhaler -] 1 - 2 inh PO Q4H #1 inhaler 08/09/19 Azithromycin [Zithromax 250mg Tablets -] 250 mg PO UTDICT #6 tab 08/09/19 Methylprednisolone [Medrol Dose Tino] 4 mg PO ASDIR #21 tablet 08/09/19 predniSONE [Deltasone -] 40 mg PO DAILY 4 Days #8 tablet 08/09/19 Anemia: No Asthma: Yes Cancer: No Cardiac Disorders: No CVA: No COPD: No CHF: No DVT: No Dementia: No Diabetes: No GI Disorders: No Disorders: No HTN: No Hypercholesterolemia: No Kidney Stones: No Liver Disease: No Psychiatric Problems: Yes (depression) Seizures: Yes (last seizure was 01/15) Thyroid Disease: No - Surgical History Abdominal Surgery: No Appendectomy: No Cardiac Surgery: No Cholecystectomy: No Lung Surgery: No Neurologic Surgery: No Orthopedic Surgery: No - Reproductive History PID: No - Psycho Social/Smoking Cessation Hx Smoking Status: No Smoking History: Never smoked Have you smoked in the past 12 months: No Number of Cigarettes Smoked Daily: 1 If you are a former smoker, when did you quit?: 2013 'Breaking Loose' booklet given: 10/10/15 Hx Alcohol Use: Yes Drug/Substance Use Hx: Yes Substance Use Type: Alcohol, Cocaine, Marijuana, Opiates Hx Substance Use Treatment: Yes ED Treatment Course - LABORATORY CBC & Chemistry Diagram: 08/09/19 17:38 08/09/19 17:38 Medical Decision Making - Medical Decision Making 08/09/19 17:22 HPI: 34yo F hx asthma on albuterol inhaler only, mood disorder, on methadone, sent from urgent care for asthma exacerbation, c/o SOB and cough productive of green phlegm x2 days, worse with exertion, minimal temporary improvement with albuterol inhaler which pt is using 10x/day. States chest pain only when coughs , like squeezing lungs. Endorses L shoulder/neck Pt has had multiple visits to [facility] for her "asthma" since May this year with multiple steroid packs, last 5 day pack finished 3 days ago, which help until pt stops taking them. Before May pt hadn't had episode in 5-6 years, and then it was only a few episodes and that is when she was diagnosed with asthma. No hx of SOB or asthma prior to then. Never seen casting operator or had PFTs. Denies hx CAD /cardiac issues. Quit smoking in April. Denies hx intubations or PNA. Denies triggers like weather or russell. Denies hx DVT/PE, estrogen/hormone use, hemoptysis, recent travel, recent surgery, leg swelling, calf tenderness, sick contacts, fever, chills, fatigue, headache, dizziness, numbness/tingling, weakness, vision changes, abdominal pain, blood in stool, diarrhea, constipation , nausea, vomiting, dysuria, hematuria, confusion. ROS: Constitutional: Negative for chills, fever, fatigue, diaphoresis. HENT: Negative for sore throat, rhinorrhea, congestion. Eyes: Negative for visual disturbance. Respiratory: Positive for shortness of breath, cough, and wheezing. Cardiovascular: Positive for chest pain and palpitations. Negative for leg swelling. Gastrointestinal: Negative for abdominal pain, blood in stool, constipation, diarrhea, nausea, and vomiting. Genitourinary: Negative for dysuria, flank pain, and hematuria. Musculoskeletal: Positive for L-sided neck and shoulder muscle tightness. Negative for myalgias, back pain, and neck pain. Skin: Negative for rash. Neurological: Negative for light-headedness, dizziness, vertigo, syncope, weakness, numbness and headaches. Psychiatric/Behavioral: Negative for behavioral problems and confusion. PE: Gen: Alert, NAD, comfortable-appearing, breathing with accessory muscles but speaking in full sentences with nebulizer mask on face HEENT: PERRL, EOMI, MMM, NCAT. No conjunctival pallor. Sclera are non-icteric. CV: Tachycardic rate and regular rhythm. No murmurs, rubs, or gallops. PULM: No resp distress. Using accessory muscles, moderate exp>insp wheezes diffusely b/l. ABD: soft, NT/ND, no rebound tenderness or guarding, no CVA tenderness. BACK: No TTP of c/t/l-spine. No step-offs or deformities. +TTP L delt area. MSK: No bony deformities. 2+ pulses in all extremities. NEURO: AAOx3. PERRL. No gross CN deficits. Strength and sensation grossly intact throughout. EXTREMITIES: No cyanosis. No clubbing. No edema. No calf tenderness. PSYCH: Normal mood and thought pattern. SKIN: Warm and dry. Normal capillary refill. No rashes. No jaundice. MDM: 34yo F hx asthma, mood disorder, on methadone, sent from urgent care for asthma exacerbation, c/o SOB and cough x2 days. VS reviewed, 91% O2 sat, tachycardic to 103, normotensive, afebrile, diffuse expiratory>inspiratory wheezing on exam. Presentation most consistent with asthma/COPD exacerbation vs bronchitis vs allergic reactive disease due to wheezing and hx - nebulizers, steroids, labs. Also concern for PNA due to productive cough, though no crackles on exam - r/o with CXR and labs. Lower concern for ACS/ND due to chest pain only with coughs and lack of hx of cardiac issues, but r/o with EKG and cardiac profile. Pre-trop HEART score 0-1 (smoking) . Very low concern for PE due to hx, lack of CP, and wheezing, Wells 1.5 ( tachycardia), PERC not neg due to O2 sat and heart rate - no further testing indicated at this time, but if everything else negative, reconsider. -Duonebs -Methylprednisone -Azithromycin -Magnesium -IVF -EKG -CXR -CBC, CMP, Cardiac profile -Dispo: pending w/u and reassessment 08/09/19 18:06 CXR reviewed: no acute pathology EKG reviewed: NSR, 99bpm, prolonged QT 485ms, normal axis, no TWIs, no ST elevations or depressions 08/09/19 18:52 Labs reviewed. No concerning findings. 08/09/19 19:13 Pt feeling a little better s/p nebs. Speaking in full sentences. No accessory muscle use. Still wheezing present despite all nebs. Will admit. Discharge - Discharge Information Problems reviewed: Yes Clinical Impression/Diagnosis: Asthma exacerbation Condition: Fair - Admission Yes - Additional Discharge Information Prescriptions: Albuterol Sulfate Inhaler - [Ventolin Hfa Inhaler -] 1 - 2 inh PO Q4H #1 inhaler Azithromycin [Zithromax 250mg Tablets -] 250 mg PO UTDICT #6 tab Methylprednisolone [Medrol Dose Tino] 4 mg PO ASDIR #21 tablet predniSONE [Deltasone -] 40 mg PO DAILY 4 Days #8 tablet - Follow up/Referral - Patient Discharge Instructions - Post Discharge Activity
[2019-08-09] MEDS: ALBUTEROL SO4 2.5/IPRATROPIUM 0.5 INH SOL 3 ML VIAL.NEB. NEB SCH ×5 (17:11→18:01)
[2019-08-09 17:13] VITALS: BMI 31.1
[2019-08-09] MEDS ORDERED: methylPREDNISolone NA SUCC 125 MG/2 ML VIAL ONE (17:17)
[2019-08-09 18:01] LABS: BASO % 0.7 % (0-2.0); EOS % 12.1 % (0-4.5); HEMATOCRIT 39.5 % (32.4-45.2); HEMOGLOBIN 12.9 GM/dL (10.7-15.3); LYMPH % 33.7 % (8-40); MCH 27.8 pg (25.7-33.7); MCHC 32.8 g/dl (32.0-36.0); MEAN CELL VOLUME 84.7 fl (80-96); MEAN PLT VOLUME 7.3 fl (7.5-11.1); MONO % 5.7 % (3.8-10.2); NEUT % 47.8 % (42.8-82.8); PLATELET COUNT 303 K/MM3 (134-434); RBC 4.66 M/mm3 (3.60-5.2); RDW 13.8 % (11.6-15.6); WHITE BLOOD COUNT 9.5 K/mm3 (4.0-10.0)
[2019-08-09] MEDS ORDERED: ALBUTEROL SO4 0.083% IH SOL 2.5 MG/3 ML VIAL.NEB. NEB ONE ×4 (18:02→19:24)
[2019-08-09] MEDS ORDERED: AZITHROMYCIN IVPB 500 MG in DEXTROSE 5%-WATER - 250 ML IVPB ONE (18:07)
[2019-08-09] MEDS ORDERED: MAGNESIUM SULF 50% (8.12 MEQ/2 ML-1 GM VIAL) IVPB ONE (18:07)
[2019-08-09] MEDS ORDERED: SODIUM CHLORIDE 0.9% 1000 ML INFUS.BAG IV ONE (18:08)
[2019-08-09] MEDS ORDERED: MAGNESIUM SULF 50% (8.12 MEQ/2 ML-1 GM VIAL) ONE (18:22)
[2019-08-09 18:27] LABS: ALBUMIN 3.5 g/dl (3.4-5.0); ALK PHOS 70 U/L (45-117); ANION GAP 7 MMOL/L (8-16); BILIRUBIN,TOTAL 0.2 mg/dL (0.2-1); BLOOD UREA NITROGEN 10.6 mg/dL (7-18); CALCIUM 9.1 mg/dL (8.5-10.1); CHLORIDE 104 mmol/L (98-107); CO2 28 mmol/L (21-32); GLUCOSE,RANDOM 84 mg/dL (74-106); POTASSIUM 4.2 mmol/L (3.5-5.1); SGOT/AST 15 U/L (15-37); SGPT/ALT 20 U/L (13-61); SODIUM 139 mmol/L (136-145); TOT PROT 6.9 g/dl (6.4-8.2)
--- NOTE | 2019-08-09 18:35 | PDOC ---
Documentation entered by Christian Cabello SCRIBE, acting as scribe for Angélica George DO. Angélica George DO: This documentation has been prepared by the Destiney toribio Xhesika, SCRIBE, under my direction and personally reviewed by me in its entirety. I confirm that the documentation accurately reflects all work, treatment, procedures, and medical decision making performed by me. Attending Attestation - Resident Resident Name: Lor Mooney - ED Attending Attestation I have performed the following: I have examined & evaluated the patient, The case was reviewed & discussed with the resident, I agree w/resident's findings & plan, Exceptions are as noted - HPI HPI: 08/09/19 18:37 The patient is a 34 year old female with a significant PMH of asthma (quit tobacco 6 years ago), mood disorder (on methadone) who presents to the emergency department from [facility] for chest tightness, wheezing, SOB and productive cough for the past 2 days. Patient states over the summer she was smoking a lot of weed (last used May 19) and since then she has been endorsing reactive airway disease and wheezing. Patient notes no improvement with nebs, inhaler and 1 dose of prednisone. Patient notes her last steroids medrol pack was 3 days ago The patient denies headache and dizziness, fever, chills, nausea, vomiting, diarrhea and constipation. Denies dysuria, frequency, urgency and hematuria. Allergies: NKDA - Physicial Exam PE: 08/09/19 18:39 GENERAL: Awake, alert, and fully oriented, in no acute distress HEAD: No signs of trauma EYES: PERRLA, EOMI, sclera anicteric, conjunctiva clear ENT: Auricles normal inspection, hearing grossly normal, nares patent, oropharynx clear without exudates. Moist mucosa NECK: Normal ROM, supple, no lymphadenopathy, JVD, or masses LUNGS: + wheezing. + crackles at base. HEART: Regular rate and rhythm, normal S1 and S2, no murmurs, rubs or gallops ABDOMEN: Soft, nontender, normoactive bowel sounds. No guarding, no rebound. No masses EXTREMITIES: Normal range of motion, no edema. No clubbing or cyanosis. No cords, erythema, or tenderness NEUROLOGICAL: Cranial nerves II through XII grossly intact. Normal speech SKIN: Warm, Dry, normal turgor, no rashes or lesions noted. - Medical Decision Making 08/09/19 18:23 I, Dr. Angélica George, DO, attest that this document has been prepared under my direction and personally reviewed by me in its entirety. I further attest, that it accurately reflects all work, treatment, procedures and medical decision -making performed by me. a/p: 34yo female with hx of smoking and hx of reactive airway disease with sob, wheezing, chest tightness today -pt states she was seen at [facility] and told she has asthma, but has never seen pulm or had PFT -states she quit tobacco 6y ago, states she quit marijuana this summer -states last steroids medrol pack was 3 days ago -chest tightness and sob today - wheezing on exam -will send labs, nebs, steroids, mag -will obtain cxr -ekg -will monitor and reassess 08/09/19 18:31 pt after 3 duonebs is speaking full sentences, pulse ox stable still with wheezing will continue nebs add azithromycin for mucopurulent bronchitis no elevated wbc cxr clear 08/09/19 18:35 trop neg 08/09/19 19:23 pt still with wheezing pulse ox 92% ra will give another neb and place on o2 will need admission 08/09/19 20:35 case discussed with DAVI who accepts pt to service Discharge - Discharge Information Problems reviewed: Yes Clinical Impression/Diagnosis: Asthma exacerbation Condition: Guarded - Admission Yes - Follow up/Referral - Patient Discharge Instructions - Post Discharge Activity Heart Score/ECG Review - ECG Intrepretation Comment:: 08/09/19 18:23 sinus at 99, nl axis, nl inerval, no acute st/t wave findings
[2019-08-09] MEDS ORDERED: AZITHROMYCIN IVPB 500 MG/250 ML BAG IVPB ONE (20:04)
--- NOTE | 2019-08-09 21:04 | PN ---
Teaching Attending Note Name of Resident: Fransico Andrade ATTENDING PHYSICIAN STATEMENT I saw and evaluated the patient. I reviewed the resident's note and discussed the case with the resident. I agree with the resident's findings and plan as documented. SUBJECTIVE: Patient is a 34 year old woman with a PMH of Asthma (quit tobacco 6 years ago), Heroin abuse (on methadone) and Mood disorder who presents to the ER from [facility] for chest tightness, wheezing, SOB and productive cough for the past 2 days. Patient states over the summer she was smoking a lot of weed (last used May 19) and since then she has been having reactive airway disease and wheezing. Patient notes no improvement with nebs, inhaler and 1 dose of prednisone. Patient notes her last steroids medrol pack was 3 days ago. The patient denies headache and dizziness, fever, chills, nausea, vomiting, diarrhea and constipation. Denies dysuria, frequency, urgency and hematuria. No recent travel or obvious sick contacts. Never been intubated. LMP was April 2019 - had an subsequently. OBJECTIVE: Alert Vital Signs Period Temp Pulse Resp BP Sys/Perez Pulse Ox Last 24 Hr 98 F 102-103 18-20 108-113/70-73 91-94 HEENT: No Jaundice, eye redness or discharge, PERRLA, EOMI. Normocephalic, atraumatic. External ears are normal and hearing is grossly intact. No nasal discharge. Neck: Supple, nontender. No palpable adenopathy or thyromegaly. No JVD Chest: Good effort. Diffuse wheezing. Clear to percussion. Heart: Regular. No S3, rub or murmur Abdomen: Not distended, soft, nontender and no HSM. No rebound or guarding. Normal bowel sounds. Ext: Peripheral pulses intact. No leg edema. Skin: Warm and dry. No petechiae, rash or ecchymosis. Neuro: Alert. Oriented x3. CN 2-12 grossly intact. Sensation grossly intact in all four extremities and DTR are symmetric. Psych: Appropriate mood and affect. Good insight. Home Medications Medication Instructions Recorded Albuterol 0.083% Nebulizer Elizabeth 1 neb NEB Q4H PRN #30 vial 04/27/19 [Ventolin 0.083% Nebulizer Soln -] Albuterol Sulfate Inhaler - 1 - 2 inh PO Q4H PRN #1 inhaler 04/27/19 [Ventolin HFA Inhaler -] Gabapentin [Neurontin -] 400 mg PO TID 08/09/19 Methadone 90 mg PO DAILY 08/09/19 Abnormal Lab Results 08/09/19 08/09/19 17:38 17:38 MPV 7.3 L D Eosinophils % 12.1 H D Anion Gap 7 L ASSESSMENT AND PLAN: 1. Acute asthma exacerbation - Responding to initial treatment in the ER. Will continue Solumedrol, Duoneb, Symbicort, Singulair, MgSO4, Rocephin and Azithromycin (Monitor QTc). CXR is hyperinflated but no acute abnormality noted. Will get urine legionella antigen. EKG shows NSR with prolonged QTc and no significant ST-T wave changes. Counseled about marijuana use. Will continue comprehensive care for all of patients comorbid conditions. 2. Obesity Counseled on the risks associated with obesity. Will provide patient all the necessary assistance, counseling and positive reinforcement to facilitate weight loss. Consult wool handler. 3. DVT prophylaxis - Lovenox 40 mg SQ q 24 hours. 4. Advance directives - Full code
[2019-08-09] MEDS ORDERED: CEFTRIAXONE 1 GM in DEXTROSE 5%-WATER - 50 ML IVPB SCH (23:22)
[2019-08-09] MEDS ORDERED: MONTELUKAST NA 10 MG TABLET PO SCH (23:30)
[2019-08-10] MEDS ORDERED: ALBUTEROL SO4 0.083% IH SOL 2.5 MG/3 ML VIAL.NEB. NEB SCH ×2
[2019-08-10] MEDS ORDERED: ALBUTEROL SO4 0.083% IH SOL 2.5 MG/3 ML VIAL.NEB. NEB PRN (00:08)
[2019-08-10] MEDS ORDERED: CEFTRIAXONE 1 GM/50 ML BAG ONE (00:35)
[2019-08-10] MEDS ORDERED: ALBUTEROL SO4 2.5/IPRATROPIUM 0.5 INH SOL 3 ML VIAL.NEB. NEB SCH (00:37)
[2019-08-10] MEDS: BUDESONIDE/FORMETEROL FUMARATE 160/4.5 mcg INHALER IH SCH ×2 (01:05→09:49)
--- NOTE | 2019-08-10 01:36 | HP ---
CHIEF COMPLAINT: PCP: unknown HISTORY OF PRESENT ILLNESS: 34 y/o/f with PMHx of asthma and depression here for worsening shortness of breath. Patient was diagnosed with asthma in April of this year. In the last 2 months she has completed 4 Medrol dose packs, most recently 2 weeks ago. She feels better when on the Medrol but her breathing worsens when off the steroids. For the last week she has had shortness of breath walking short distances and even with talking. She has been using her nebulizer twice a day and albuterol inhaler up to 10 times daily. She has also had a productive cough for the last week with green/yellow sputum that is worse in the morning and night. She complains of chest pain when coughing as well. He breathing has woken her up and night but she denies having increased difficulty breathing when lying on her back. Patient also endorses some left shoulder pain, chills and subjective fever at home. She has never been intubated in the past. She denies any N/V/D, constipation, sore throat, changes in vision. Patient states her breathing has improved after receiving treatment in the ED but she still does not feel great. ER course was notable for: (1) Multiple duoneb, albuterol doses, methylprednisone IV, and mag sulfate dose with improvement of symptoms but without resolution. PAST MEDICAL HISTORY: depression, asthma PAST SURGICAL HISTORY: two C-sections, tonsillectomy Social History: Smoking: quit 6 years ago Alcohol: quit 1 year ago Drugs: marijuana - quit smoking in April of this year. Heroin - quit 1-2 months ago, now on Methadone ([facility][phone] [place] [address]) Allergies No Known Allergies Allergy (Verified 08/09/19 17:13) HOME MEDICATIONS: Home Medications Medication Instructions Recorded Albuterol 0.083% Nebulizer Elizabeth 1 neb NEB Q4H PRN #30 vial 04/27/19 [Ventolin 0.083% Nebulizer Soln -] Albuterol Sulfate Inhaler - 1 - 2 inh PO Q4H PRN #1 inhaler 04/27/19 [Ventolin HFA Inhaler -] Gabapentin [Neurontin -] 400 mg PO TID 08/09/19 Methadone 90 mg PO DAILY 08/09/19 REVIEW OF SYSTEMS Constitutional: chills, fever HEENT: cough, denies sore throat, changes in vision Cardio: chest pain with cough, denies palpitations, lightheadedness Resp: SOB, wheezing GI: denies nausea, vomiting, diarrhea, constipation MSK: left shoulder pain. denies neck pain, back pain SKIN: denies rashes Neuro: headache denies loss of consciousness, numbness, tingling, weakness PHYSICAL EXAMINATION Vital Signs - 24 hr 08/09/19 08/09/19 08/09/19 16:50 17:32 20:10 Temperature 98 F Pulse Rate 103 H Pulse Rate [ 102 H Right Radial] Respiratory 18 20 Rate Blood Pressure 108/73 Blood Pressure 113/70 [Right Arm] O2 Sat by Pulse 91 L 91 L 94 L Oximetry (%) GENERAL: mild distress. Awake, alert, and fully oriented HEAD: NC/AT EYES: PERRL, EOMI EARS, NOSE, THROAT: nares patent, oropharynx clear without exudates. Moist mucous membranes. NECK: supple, no cervical lymphadenopathy, no JVD LUNGS: B/L inspiratory and expiratory wheezing worse at the bases. No rales, crackles. No accessory muscle use. HEART: tachycardic, normal S1 and S2 without murmur, rub or gallop. ABDOMEN: Soft, nontender, not distended, normoactive bowel sounds, no guarding, no rebound, no masses. No hepatomegaly or splenomegaly. MUSCULOSKELETAL: Normal range of motion at all joints. No bony deformities or tenderness. UPPER EXTREMITIES: 2+ pulses, warm, well-perfused. No cyanosis. No clubbing. No peripheral edema. LOWER EXTREMITIES: 2+ pulses, warm, well-perfused. No calf tenderness. No peripheral edema. NEUROLOGICAL: Normal speech. Normal gait. 5/5 strength upper and lower extremities PSYCHIATRIC: Cooperative. Good eye contact. Appropriate mood and affect. SKIN: Warm, dry, normal turgor, no rashes or lesions noted, normal capillary refill. Laboratory Results - last 24 hr 08/09/19 08/09/19 17:38 17:38 WBC 9.5 RBC 4.66 Hgb 12.9 Hct 39.5 D MCV 84.7 MCH 27.8 MCHC 32.8 RDW 13.8 Plt Count 303 MPV 7.3 L D Absolute Neuts (auto) 4.6 Neutrophils % 47.8 D Lymphocytes % 33.7 D Monocytes % 5.7 Eosinophils % 12.1 H D Basophils % 0.7 Nucleated RBC % 0 Sodium 139 Potassium 4.2 Chloride 104 Carbon Dioxide 28 Anion Gap 7 L BUN 10.6 Creatinine 1.0 Est GFR (CKD-EPI)AfAm 85.12 Est GFR (CKD-EPI)NonAf 73.45 Random Glucose 84 Calcium 9.1 Total Bilirubin 0.2 AST 15 ALT 20 Alkaline Phosphatase 70 Creatine Kinase 128 Troponin I < 0.02 Total Protein 6.9 Albumin 3.5 Imaging: CXR - no acute pathology ASSESSMENT/PLAN: 34 y/o/f with PMHx of asthma (diagnosed in April of this year) and depression here for worsening shortness of breath. 1)Asthma Exacerbation - patient with SOB, still wheezing despite multiple treatments in the ED -Duoneb Q6hr EDDA -Albuterol Q4hr PRN for wheezing -one dose of Azithromycin given in ER. -Continue Azithromycin -Start Rocephin -Methylprednisone 60mg IV Q6hr -One dose given in ED 125mg IV -Start Symbicort and Singulair -UA and Urine Legionella antigen pending 2)Methadone use -patient states her dose is 90mg -Clinic information: [facility] at [address] [place] [address] # 3)Prophlaxis -Lovenox 4)FEN -Regular Diet 5)Disposition -admitted to [facility] for continuous pulse ox monitoring, consider downgrade when better Visit type - Emergency Visit Emergency Visit: Yes ED Registration Date: 08/09/19 Care time: The patient presented to the Emergency Department on the above date and was hospitalized for further evaluation of their emergent condition. - New Patient This patient is new to me today: Yes Date on this admission: 08/10/19 - Critical Care Critical Care patient: No ATTENDING PHYSICIAN STATEMENT I saw and evaluated the patient. I reviewed the resident's note and discussed the case with the resident. I agree with the resident's findings and plan as documented. SUBJECTIVE: OBJECTIVE: ASSESSMENT AND PLAN:
[2019-08-10] MEDS: methylPREDNISolone NA SUCC 40 MG/1 ML VIAL IVPUSH SCH ×3 (03:00→14:39)
[2019-08-10] MEDS ORDERED: methylPREDNISolone NA SUCC 40 MG/1 ML VIAL ONE (04:43)
[2019-08-10 07:04] LABS: HEMATOCRIT 36.4 % (32.4-45.2); HEMOGLOBIN 12.3 GM/dL (10.7-15.3); MCH 28.3 pg (25.7-33.7); MCHC 33.9 g/dl (32.0-36.0); MEAN CELL VOLUME 83.4 fl (80-96); MEAN PLT VOLUME 7.4 fl (7.5-11.1); PLATELET COUNT 297 K/MM3 (134-434); RBC 4.36 M/mm3 (3.60-5.2); RDW 13.2 % (11.6-15.6); WHITE BLOOD COUNT 5.3 K/mm3 (4.0-10.0)
[2019-08-10 07:19] LABS: ALBUMIN 3.3 g/dl (3.4-5.0); BILIRUBIN,TOTAL 0.5 mg/dL (0.2-1); BLOOD UREA NITROGEN 10.3 mg/dL (7-18); CALCIUM 9.1 mg/dL (8.5-10.1); CREATININE 0.8 mg/dL (0.55-1.3); POTASSIUM 4.3 mmol/L (3.5-5.1); TOT PROT 6.6 g/dl (6.4-8.2)
[2019-08-10 07:44] VITALS: TEMP 98
[2019-08-10] MEDS ORDERED: METHADONE HCL 10 MG TABLET PO ONE (08:01)
[2019-08-10] MEDS ORDERED: METHADONE 80 MG, METHADONE 10 MG PO ONE (08:30)
[2019-08-10] MEDS ORDERED: METHADONE HCL 10 MG TABLET ONE (08:31)
[2019-08-10] MEDS ORDERED: METHADONE HCL 40 MG DISPERSABLE TABLET ONE (08:32)
[2019-08-10] MEDS ORDERED: AZITHROMYCIN IVPB 500 MG/250 ML BAG IVPB SCH (10:00)
[2019-08-10] MEDS ORDERED: DOXYCYCLINE HYCLATE 100 MG CAPSULE PO SCH (10:00)
[2019-08-10] MEDS ORDERED: ENOXAPARIN NA (PORCINE) 40 MG/0.4 ML DISP.SYRIN SQ SCH (10:00)
[2019-08-10 11:37] VITALS: BP 122/61
[2019-08-10 11:49] VITALS: PULSE 101
--- NOTE | 2019-08-10 14:27 | EKG ---
Test Reason : Blood Pressure : / mmHG Vent. Rate : 081 BPM Atrial Rate : 081 BPM P-R Int : 118 ms QRS Dur : 088 ms QT Int : 466 ms P-R-T Axes : 022 049 051 degrees QTc Int : 541 ms NORMAL SINUS RHYTHM PROLONGED QT ABNORMAL ECG WHEN COMPARED WITH ECG OF 09-AUG-2019 17:50, NO SIGNIFICANT CHANGE WAS FOUND Confirmed by MADAY JONAS MD ([id number]) on 08/10/2019 2:26:48 PM Referred By: Confirmed By:MADAY JONAS MD
--- NOTE | 2019-08-10 14:31 | EKG ---
Test Reason : Blood Pressure : / mmHG Vent. Rate : 099 BPM Atrial Rate : 099 BPM P-R Int : 130 ms QRS Dur : 076 ms QT Int : 378 ms P-R-T Axes : 066 041 044 degrees QTc Int : 485 ms NORMAL SINUS RHYTHM PROLONGED QT ABNORMAL ECG WHEN COMPARED WITH ECG OF 05-MAY-2019 17:00, NO SIGNIFICANT CHANGE WAS FOUND Confirmed by MADAY JONAS MD ([id number]) on 08/10/2019 2:30:49 PM Referred By: Confirmed By:MADAY JONAS MD
[2019-08-10] MEDS ORDERED: DOXYCYCLINE HYCLATE 100 MG CAPSULE PO ONE (14:37)
--- NOTE | 2019-08-10 15:06 | PN ---
Teaching Attending Note Name of Resident: Vicky Mendoza ATTENDING PHYSICIAN STATEMENT I saw and evaluated the patient. I reviewed the resident's note and discussed the case with the resident. I agree with the resident's findings and plan as documented with exceptions below. SUBJECTIVE: patient seen and examined, breathing better, ambulating in the hallway. OBJECTIVE: Vital Signs Period Temp Pulse Resp BP Sys/Perez Pulse Ox Last 24 Hr 97.8 F-98.3 F 82-103 18-20 108-124/54-73 91-99 Intake & Output 08/07/19 08/08/19 08/09/19 08/10/19 23:59 23:59 23:59 23:59 Intake Total 150 Balance 150 Weight 170 lb General: sitting in bed, able to talk in full sentences, no use of accessory muscles of respiration Chest: good air entry bilaterally, scattered expiratory wheezing Abdomen:Soft, NT Extremities: no edema Home Medications Medication Instructions Recorded Albuterol 0.083% Nebulizer Elizabeth 1 neb NEB Q4H PRN #30 vial 04/27/19 [Ventolin 0.083% Nebulizer Soln -] Albuterol Sulfate Inhaler - 1 - 2 inh PO Q4H PRN #1 inhaler 04/27/19 [Ventolin HFA Inhaler -] Gabapentin [Neurontin -] 400 mg PO TID 08/09/19 Methadone 90 mg PO DAILY 08/09/19 Budesonide/Formeterol Fumarate 2 puff IH BID #1 inhaler 08/10/19 [SYMBICORT 160/4.5mcg -] Doxycycline Hyclate [Vibramycin -] 100 mg PO BID 7 Days #14 capsule 08/10/19 Montelukast Na [Singulair -] 10 mg PO HS 30 Days #30 tablet 08/10/19 predniSONE [Deltasone -] See Taper PO ASDIR #63 tab 08/10/19 Active Medications Albuterol Sulfate (Ventolin 0.083% Nebulizer Soln -) 1 amp NEB RQ4H PRN PRN Reason: SHORT OF BREATH/WHEEZING Albuterol/Ipratropium (Duoneb -) 1 amp NEB RQID EDDA Budesonide/Formoterol Fumarate (Symbicort 160/4.5mcg -) 2 puff IH BID EDDA Last Admin: 08/10/19 09:49 Dose: Not Given Doxycycline Hyclate (Vibramycin -) 100 mg PO BID@1000,1800 [facility] Stop: 08/16/19 18:01 Last Admin: 08/10/19 14:39 Dose: 100 mg Enoxaparin Sodium (Lovenox -) 40 mg SQ DAILY [facility] Last Admin: 08/10/19 09:49 Dose: 40 mg Methylprednisolone Sodium Succinate (Solu-Medrol -) 60 mg IVPUSH Q6H-IV [facility] Last Admin: 08/10/19 14:39 Dose: 60 mg Montelukast Sodium (Singulair -) 10 mg PO HS [facility] Last Admin: 08/10/19 01:05 Dose: 10 mg Laboratory Results - last 24 hr 08/09/19 08/09/19 08/10/19 17:38 17:38 06:05 WBC 9.5 5.3 RBC 4.66 4.36 Hgb 12.9 12.3 Hct 39.5 D 36.4 MCV 84.7 83.4 MCH 27.8 28.3 MCHC 32.8 33.9 RDW 13.8 13.2 Plt Count 303 297 MPV 7.3 L D 7.4 L Absolute Neuts (auto) 4.6 Neutrophils % 47.8 D Lymphocytes % 33.7 D Monocytes % 5.7 Eosinophils % 12.1 H D Basophils % 0.7 Nucleated RBC % 0 Sodium 139 Potassium 4.2 Chloride 104 Carbon Dioxide 28 Anion Gap 7 L BUN 10.6 Creatinine 1.0 Est GFR (CKD-EPI)AfAm 85.12 Est GFR (CKD-EPI)NonAf 73.45 Random Glucose 84 Calcium 9.1 Total Bilirubin 0.2 AST 15 ALT 20 Alkaline Phosphatase 70 Creatine Kinase 128 Troponin I < 0.02 Total Protein 6.9 Albumin 3.5 08/10/19 06:05 WBC RBC Hgb Hct MCV MCH MCHC RDW Plt Count MPV Absolute Neuts (auto) Neutrophils % Lymphocytes % Monocytes % Eosinophils % Basophils % Nucleated RBC % Sodium 138 Potassium 4.3 Chloride 104 Carbon Dioxide 24 Anion Gap 9 BUN 10.3 Creatinine 0.8 Est GFR (CKD-EPI)AfAm 111.48 Est GFR (CKD-EPI)NonAf 96.19 Random Glucose 133 H Calcium 9.1 Total Bilirubin 0.5 AST 13 L ALT 22 Alkaline Phosphatase 66 Creatine Kinase Troponin I Total Protein 6.6 Albumin 3.3 L CXR results and image reviewed ASSESSMENT AND PLAN: 34 yof with PMhx of asthma, depression admitted with dyspnea -Acute asthma exacerbation -Depression Plan: Doing well, oxygenating well with activity. slow prednisone taper. QTc noted, doxycycline for additional 6 days. Singulair/symbicort. Advised patient about outpatient pulmonary follow up and additional testing. Also dc instructions discussed in detail. Patient relays understanding and agrees to comply dc home today.
--- NOTE | 2019-08-10 16:02 | DS ---
Physical Exam: SUBJECTIVE: Patient seen and examined. She reports improvement in shortness of breath and wheezing after receiving steroids and duo-nebs. She denies fever, chills, nausea, and vomiting. Pt had 4 previous courses of steroids in the last 2 months. No recent sick contacts or URI symptoms. She does not have a user experience architect. OBJECTIVE: Vital Signs Period Temp Pulse Resp BP Sys/Perez Pulse Ox Last 24 Hr 97.8 F-98.3 F 82-103 18-20 108-124/54-73 91-99 PHYSICAL EXAM GENERAL: The patient is awake, alert, and fully oriented, in no acute distress. HEAD: Normal with no signs of trauma. EYES: PERRL, extraocular movements intact ENT: Ears normal, nares patent, moist mucous membranes. NECK: Trachea midline, full range of motion LUNGS: Right lower lobe expiratory wheezing, no accessory muscle use. HEART: Regular rate and rhythm, no murmur ABDOMEN: Soft, nontender, nondistended, normoactive bowel sounds EXTREMITIES: warm, well-perfused, no edema. NEUROLOGICAL: Normal speech PSYCH: Normal mood, normal affect. SKIN: Warm, dry, normal turgor, no rashes or lesions noted. LABS Laboratory Results - last 24 hr 08/09/19 08/09/19 08/10/19 17:38 17:38 06:05 WBC 9.5 5.3 RBC 4.66 4.36 Hgb 12.9 12.3 Hct 39.5 D 36.4 MCV 84.7 83.4 MCH 27.8 28.3 MCHC 32.8 33.9 RDW 13.8 13.2 Plt Count 303 297 MPV 7.3 L D 7.4 L Absolute Neuts (auto) 4.6 Neutrophils % 47.8 D Lymphocytes % 33.7 D Monocytes % 5.7 Eosinophils % 12.1 H D Basophils % 0.7 Nucleated RBC % 0 Sodium 139 Potassium 4.2 Chloride 104 Carbon Dioxide 28 Anion Gap 7 L BUN 10.6 Creatinine 1.0 Est GFR (CKD-EPI)AfAm 85.12 Est GFR (CKD-EPI)NonAf 73.45 Random Glucose 84 Calcium 9.1 Total Bilirubin 0.2 AST 15 ALT 20 Alkaline Phosphatase 70 Creatine Kinase 128 Troponin I < 0.02 Total Protein 6.9 Albumin 3.5 08/10/19 06:05 WBC RBC Hgb Hct MCV MCH MCHC RDW Plt Count MPV Absolute Neuts (auto) Neutrophils % Lymphocytes % Monocytes % Eosinophils % Basophils % Nucleated RBC % Sodium 138 Potassium 4.3 Chloride 104 Carbon Dioxide 24 Anion Gap 9 BUN 10.3 Creatinine 0.8 Est GFR (CKD-EPI)AfAm 111.48 Est GFR (CKD-EPI)NonAf 96.19 Random Glucose 133 H Calcium 9.1 Total Bilirubin 0.5 AST 13 L ALT 22 Alkaline Phosphatase 66 Creatine Kinase Troponin I Total Protein 6.6 Albumin 3.3 L HOSPITAL COURSE: Ms. Medrano is a 34y/o female with asthma, depression, hx of heroin use disorder (on methadone), hx of tobacco use disorder, hx of marijuana use disorder, and hx of alcohol use disorder presents for increased shortness of breath. She has had 4 courses of steroids over the last 2 months and uses her rescue inhaler multiple times a day. Her last course was 5 days long about 2 weeks ago. She got increasingly worse over the last couple weeks to the point she had difficulty walking around. She had a cough with sputum that is greenish/ yellowish. CXR negative for acute pathologies. She was given IV solumedrol, duo- nebs, and magnesium with improvement in symptoms. She was started on Singulair, Symbicort, prednisone taper, and doxyclycine 100mg BID x 7 days. She was given referral for pulm because no hx of PFTs. Date of Admission:08/09/19 Date of Discharge: 08/10/19 Minutes to complete discharge: 35 Discharge Summary Problems reviewed: Yes Reason For Visit: EXACERBATION OF ASTHMA Current Active Problems Asthma exacerbation (Acute) Condition: Stable - Instructions Diet, Activity, Other Instructions: Hospital Visit: You were admitted to the hospital because of your shortness of breath and found to be in asthma exacerbation. You were given breathing treatments, steroids, and antibiotics and are feeling better. You are able to go home today. Medications: Start taking: Singulair (monteleukast) 10mg once at night Symbicort inhaler 2 puffs twice a day Doxycycline 100mg twice a day for 6 more days Prednisone taper--18 days total 60mg for 3 days (08/11-08/13) 50mg for 3 days (08/14-08/16) 40mg for 3 days (08/17-08/19) 30mg for 3 days (08/20-08/22) 20mg for 3 days (08/23-08/25) 10mg for 3 days (08/26-08/28) Continue all your home medications. Follow up with: Dr. Whaley, pulmonology, in 2 weeks. You may need to have tests done to check how severe your asthma is. [facility] in the next month to check you after the long dose of steroids. Your blood sugar can be high after being on it, and you should be monitored. Additionally you need to check your blood count (CBC) in one week. Also ensure you have regular EKG monitoring with your doctor while on methadone. Other instructions: Your antibiotic could make you more sensitive to the sun, and you could get a sunburn more easily while taking it. Be sure to avoid extended sun exposure until you are finished your antibiotics. Please have your blood counts (CBC) monitored with your doctor while on the antibiotic Return to the emergency room if you have another asthma attack that does not improve with your rescue inhaler. Also return if you have chest pain, shortness of breath, chest tightness, significant wheezing, or fever above 101. Referrals: Yony Whaley MD [Staff Physician] - Disposition: HOME - Home Medications Comprehensive Discharge Medication List: Ambulatory Orders Albuterol 0.083% Nebulizer Elizabeth [Ventolin 0.083% Nebulizer Soln -] 1 neb NEB Q4H PRN #30 vial 04/27/19 Albuterol Sulfate Inhaler - [Ventolin HFA Inhaler -] 1 - 2 inh PO Q4H PRN #1 inhaler 04/27/19 Gabapentin [Neurontin -] 400 mg PO TID 08/09/19 Methadone 90 mg PO DAILY 08/09/19 Budesonide/Formeterol Fumarate [SYMBICORT 160/4.5mcg -] 2 puff IH BID #1 inhaler 08/10/19 Doxycycline Hyclate [Vibramycin -] 100 mg PO BID 7 Days #14 capsule 08/10/19 Montelukast Na [Singulair -] 10 mg PO HS 30 Days #30 tablet 08/10/19 predniSONE [Deltasone -] See Taper PO ASDIR #63 tab 08/10/19 This patient is new to me today: Yes Date on this admission: 08/10/19 Emergency Visit: Yes ED Registration Date: 08/09/19 Care time: The patient presented to the Emergency Department on the above date and was hospitalized for further evaluation of their emergent condition. Critical Care patient: No - Discharge Referral Referred to [facility] No ATTENDING PHYSICIAN STATEMENT I saw and evaluated the patient. I reviewed the resident's note and discussed the case with the resident. I agree with the resident's findings and plan as documented. SUBJECTIVE: OBJECTIVE: ASSESSMENT AND PLAN:
== END 2019-08-10 15:00 | disposition home or self-care (01) | DRG 141 ==
LOC: JER 16:48 → JERBED 19:28
PROVIDERS: ADMIT Internal Medicine; ATTEND Hospitalist
DX: J45.901 Unspecified asthma with (acute) exacerbation (principal); F11.20 Opioid dependence, uncomplicated; F39 Unspecified mood [affective] disorder; E66.9 Obesity, unspecified; Z68.31 Body mass index [BMI] 31.0-31.9, adult; F32.9 Major depressive disorder, single episode, unspecified
CPT/HCPCS: 36415; 71045-TC-FY; 80053; 82550; 84484; 85025; 85027; 93005; 93010; 94761; 99285-25; J7030

== ENCOUNTER 2019-09-08 08:29 | Emergency (ER) | payer OTHER ==
[2019-09-08 08:42] VITALS: BP 122/79; PULSE 105; BMI 32.5
[2019-09-08] MEDS ORDERED: KETOROLAC TROMETHAMINE 60 MG/2 ML VIAL IM ONE (09:20)
--- NOTE | 2019-09-08 09:24 | PDOC ---
History of Present Illness - General Chief Complaint: Pain Stated Complaint: PAIN/RT ARM INJURY Time Seen by Provider: 09/08/19 08:42 History Source: Patient (pain in right AC since yesterday, denies trauma) Exam Limitations: No Limitations - History of Present Illness Associated Symptoms: denies: chest pain, fever/chills, nausea/vomiting Past History - Travel Traveled outside of the country in the last 30 days: No - Past Medical History Allergies/Adverse Reactions: Allergies Allergy/AdvReac Type Severity Reaction Status Date / Time No Known Allergies Allergy Verified 09/08/19 08:36 Home Medications: Ambulatory Orders Albuterol 0.083% Nebulizer Elizabeth [Ventolin 0.083% Nebulizer Soln -] 1 neb NEB Q4H PRN #30 vial 04/27/19 Albuterol Sulfate Inhaler - [Ventolin HFA Inhaler -] 1 - 2 inh PO Q4H PRN #1 inhaler 04/27/19 Gabapentin [Neurontin -] 400 mg PO TID 08/09/19 Methadone 90 mg PO DAILY 08/09/19 Budesonide/Formeterol Fumarate [SYMBICORT 160/4.5mcg -] 2 puff IH BID #1 inhaler 08/10/19 Doxycycline Hyclate [Vibramycin -] 100 mg PO BID 7 Days #14 capsule 08/10/19 Montelukast Na [Singulair -] 10 mg PO HS 30 Days #30 tablet 08/10/19 predniSONE [Deltasone -] See Taper PO ASDIR #63 tab 08/10/19 Anemia: No Asthma: Yes Cancer: No Cardiac Disorders: No CVA: No COPD: No CHF: No DVT: No Dementia: No Diabetes: No GI Disorders: No Disorders: No HTN: No Hypercholesterolemia: No Kidney Stones: No Liver Disease: No Psychiatric Problems: Yes (depression) Seizures: Yes (last seizure was 01/15) Thyroid Disease: No - Surgical History Abdominal Surgery: No Appendectomy: No Cardiac Surgery: No Cholecystectomy: No Lung Surgery: No Neurologic Surgery: No Orthopedic Surgery: No - Reproductive History PID: No - Psycho Social/Smoking Cessation Hx Smoking Status: No Smoking History: Former smoker Have you smoked in the past 12 months: Yes Number of Cigarettes Smoked Daily: 0 If you are a former smoker, when did you quit?: 2013 Information on smoking cessation initiated: Yes 'Breaking Loose' booklet given: 10/10/15 Hx Alcohol Use: No Drug/Substance Use Hx: Yes (Heroin) Substance Use Type: Alcohol, Cocaine, Marijuana, Opiates Hx Substance Use Treatment: Yes Review of Systems - Review of Systems Constitutional: No: Chills, Fever Musculoskeletal: Yes: Muscle Pain. No: Gout, Joint Pain, Muscle Weakness, Joint Stiffness Neurological: No: Numbness, Paresthesia, Tingling, Weakness *Physical Exam - Vital Signs Last Vital Signs Temp Pulse Resp BP Pulse Ox 105 H 16 122/79 98 09/08/19 08:38 09/08/19 08:38 09/08/19 08:38 09/08/19 08:38 - Physical Exam General Appearance: Yes: Nourished Respiratory/Chest: positive: Lungs Clear, Normal Breath Sounds Cardiovascular: positive: Regular Rhythm, Regular Rate, S1, S2 Musculoskeletal: positive: Decreased Range of Motion (right AC region, + tenderness on palpation, no obvious deformity, unable to properly extend arm, distal pulse intact) Extremity: positive: Normal Capillary Refill Neurologic: positive: title abstractor II-XII NML intact, Fully Oriented, Alert, Normal Mood/ Affect, Normal Response, Motor Strength 5/5 ED Treatment Course - RADIOLOGY Radiology Studies Ordered: Category Date Time Status FOREARM- RIGHT [RAD] Stat Radiology 09/08/19 09:20 Ordered Medical Decision Making - Medical Decision Making 09/08/19 10:53 34 years old female with atraumatic pain in the right AC region. Patient reports pain started yesterday evening she denies any strenuous activity weakness trauma. On examination patient was having difficulty to fully extend arm due to pain there is no surrounding abscess or cellulitis noted. Her distal pulses intact patient was very tearful on arrival. Preliminary x-ray was negative for any abnormal fracture, collection or dislocation patient reassessed after Toradol she was able to fully extend arm without difficulty she feels much better. Suspect spasm vs strain, patient advised to continue warm compresses take Motrin as needed for pain Discharge - Discharge Information Problems reviewed: Yes Clinical Impression/Diagnosis: Right forearm pain Condition: Stable Disposition: HOME - Admission No - Additional Discharge Information Prescription Drug Monitoring Program (I-STOP) results: I-STOP not reviewed - Follow up/Referral Referrals: Raphael Sanders MD [Primary Care Provider] - - Patient Discharge Instructions Patient Printed Discharge Instructions: Forearm Muscle Strain Additional Instructions: Your exam is consistent with possible muscle spasm. Your preliminary x-ray was negative for any absces, acute fracture or dislocation. Please apply warm compress to area continue to extend arm as directed. You may take Motrin [id number] every 6 hours as needed for pain. Follow-up with your primary care doctor Return to the emergency room if worsening symptoms occur - Post Discharge Activity
[2019-09-08] MEDS ORDERED: KETOROLAC TROMETHAMINE 60 MG/2 ML VIAL ONE (09:28)
== END 2019-09-08 11:02 | disposition home or self-care (01) ==
LOC: JERFT 08:29
PROC: 3E0233Z Introduction of Anti-inflammatory into Muscle, Percutaneous Approach (ICD-10-PCS; principal; 2019-09-08)
DX: M79.631 Pain in right forearm (principal); X50.1XXA Overexertion from prolonged static or awkward postures, initial encounter; X50.9XXA Other and unspecified overexertion or strenuous movements or postures, initial encounter; Y93.89 Activity, other specified; Y92.032 Bedroom in apartment as the place of occurrence of the external cause; Y99.8 Other external cause status; G40.909 Epilepsy, unspecified, not intractable, without status epilepticus; J45.909 Unspecified asthma, uncomplicated; F32.9 Major depressive disorder, single episode, unspecified
CPT/HCPCS: 73090-TC-RT-FY; 84703; 96372; 99281-25

== ENCOUNTER 2019-10-31 17:31 | Emergency (ER) | payer OTHER ==
[2019-10-31 17:39] VITALS: BP 97/60; PULSE 93; TEMP 98.4; BMI 29.2
[2019-10-31] MEDS ORDERED: ALBUTEROL SO4 2.5/IPRATROPIUM 0.5 INH SOL 3 ML VIAL.NEB. NEB ONE ×3 (17:41→19:14)
--- NOTE | 2019-10-31 17:42 | PDOC ---
Rapid Medical Evaluation Chief Complaint: Wheezing Time Seen by Provider: 10/31/19 17:36 Medical Evaluation: Allergies Allergy/AdvReac Type Severity Reaction Status Date / Time No Known Allergies Allergy Verified 09/08/19 08:36 Vital Signs Temp Pulse Resp BP Pulse Ox 98.4 F 93 H 18 97/60 99 10/31/19 17:37 10/31/19 17:37 10/31/19 17:37 10/31/19 17:37 10/31/19 17:37 10/31/19 17:41 Pt c/o: wheezing and coughing x 2 days, no relief with inhaler pt on brief exam: exp/insp wheezing, vss Pt ordered for: duoneb pt to proceed to the ED Discharge Disposition - Diagnosis Asthma exacerbation - Discharge Dispostion Condition at time of disposition: Stable - Referrals - Patient Instructions - Post Discharge Activity
[2019-10-31] MEDS ORDERED: DEXAMETHASONE LIQUID 0.5 MG/5 ML PO ONE (18:15)
[2019-10-31] MEDS ORDERED: MAGNESIUM SULF 50% (8.12 MEQ/2 ML-1 GM VIAL) IVPB ONE (18:16)
[2019-10-31] MEDS ORDERED: DEXAMETHASONE SOD PHOSPHATE 10 MG/1 ML VIAL ONE (18:19)
[2019-10-31] MEDS: ALBUTEROL SO4 2.5/IPRATROPIUM 0.5 INH SOL 3 ML VIAL.NEB. NEB SCH ×4 (18:23→20:22)
[2019-10-31] MEDS ORDERED: MAGNESIUM SULF 50% (8.12 MEQ/2 ML-1 GM VIAL) ONE (18:35)
--- NOTE | 2019-10-31 20:27 | PDOC ---
History of Present Illness - General Chief Complaint: Wheezing Stated Complaint: ASTHMA Time Seen by Provider: 10/31/19 17:36 - History of Present Illness Initial Comments: 10/31/19 20:26 34-year-old female with a past medical history of asthma presents for exacerbation of asthma x1 week without systemic symptoms Past History - Past Medical History Allergies/Adverse Reactions: Allergies Allergy/AdvReac Type Severity Reaction Status Date / Time No Known Allergies Allergy Verified 09/08/19 08:36 Home Medications: Ambulatory Orders Albuterol 0.083% Nebulizer Elizabeth [Ventolin 0.083% Nebulizer Soln -] 1 neb NEB Q4H PRN #30 vial 04/27/19 Albuterol Sulfate Inhaler - [Ventolin HFA Inhaler -] 1 - 2 inh PO Q4H PRN #1 inhaler 04/27/19 Gabapentin [Neurontin -] 400 mg PO TID 08/09/19 Methadone 90 mg PO DAILY 08/09/19 Budesonide/Formeterol Fumarate [SYMBICORT 160/4.5mcg -] 2 puff IH BID #1 inhaler 08/10/19 Doxycycline Hyclate [Vibramycin -] 100 mg PO BID 7 Days #14 capsule 08/10/19 Montelukast Na [Singulair -] 10 mg PO HS 30 Days #30 tablet 08/10/19 predniSONE [Deltasone -] See Taper PO ASDIR #63 tab 08/10/19 Anemia: No Asthma: Yes Cancer: No Cardiac Disorders: No CVA: No COPD: No CHF: No DVT: No Dementia: No Diabetes: No GI Disorders: No Disorders: No HTN: No Hypercholesterolemia: No Kidney Stones: No Liver Disease: No Psychiatric Problems: Yes (depression) Seizures: Yes (last seizure was 01/15) Thyroid Disease: No - Surgical History Abdominal Surgery: No Appendectomy: No Cardiac Surgery: No Cholecystectomy: No Lung Surgery: No Neurologic Surgery: No Orthopedic Surgery: No - Reproductive History PID: No - Immunization History Immunization Up to Date: No - Psycho Social/Smoking Cessation Hx Smoking Status: No Smoking History: Never smoked Have you smoked in the past 12 months: No Number of Cigarettes Smoked Daily: 0 If you are a former smoker, when did you quit?: 2013 Information on smoking cessation initiated: No 'Breaking Loose' booklet given: 12/11/15 Hx Alcohol Use: No Drug/Substance Use Hx: No Substance Use Type: Alcohol, Cocaine, Marijuana, Opiates Hx Substance Use Treatment: Yes Review of Systems - Review of Systems Constitutional: No: Fever Respiratory: Yes: Cough, Wheezing *Physical Exam - Vital Signs Last Vital Signs Temp Pulse Resp BP Pulse Ox 98.4 F 93 H 18 97/60 99 10/31/19 17:37 10/31/19 17:37 10/31/19 17:37 10/31/19 17:37 10/31/19 17:37 - Physical Exam 10/31/19 20:26 GENERAL: The patient is awake, alert, and fully oriented, in no acute distress. HEAD: Normal with no signs of trauma. EYES: sclera anicteric, conjunctiva clear. ENT: Ears normal tympanic membranes normal oropharynx clear uvula midline NECK: Normal range of motion LUNGS: Diffuse wheezing HEART: S1 and S2 without murmur, rub or gallop. ABDOMEN: Soft, nontender, normoactive bowel sounds. No guarding, no rebound. No masses. EXTREMITIES: Normal range of motion, no edema. No clubbing or cyanosis. No cords, erythema, or tenderness. NEUROLOGICAL: Cranial nerves II through XII grossly intact. Normal speech, normal gait. PSYCH: Normal mood, normal affect. SKIN: Warm, Dry, normal turgor, no rashes or lesions noted. ED Treatment Course - Medications Given in the ED: ED Medications Discontinued Medications Generic Name Dose Route Start Last Admin Trade Name Freq PRN Reason Stop Dose Admin Albuterol/Ipratropium 1 amp 10/31/19 17:41 10/31/19 17:53 Duoneb - NEB 10/31/19 17:42 1 amp ONCE ONE Administration Albuterol/Ipratropium 1 amp 10/31/19 18:15 10/31/19 20:22 Duoneb - NEB 10/31/19 19:01 1 amp Q15M EDAD Administration Dexamethasone 10 mg 10/31/19 18:15 10/31/19 18:23 Decadron Liquid - PO 10/31/19 18:16 2 ml ONCE ONE Administration Magnesium Sulfate 2 gm 10/31/19 18:16 10/31/19 18:41 Magnesium Sulfate IVPB 10/31/19 18:17 2 gm ONCE ONE Administration Medical Decision Making - Medical Decision Making 10/31/19 20:26 Wheezing cleared after DuoNeb's magnesium and Decadron follow-up with PCP Discharge - Discharge Information Problems reviewed: Yes Clinical Impression/Diagnosis: Asthma exacerbation Condition: Improved Disposition: HOME - Admission No - Follow up/Referral Referrals: Lencho Dumont MD [Staff Physician] - - Patient Discharge Instructions Patient Printed Discharge Instructions: DI for Asthma -- Adult, Asthma -- Adult Additional Instructions: Please take your regular medications as directed return to the emergency room for worsening symptoms and without fail follow-up with your primary care physician in 2 to 3 days for further evaluation and treatment options. - Post Discharge Activity
== END 2019-10-31 20:30 | disposition home or self-care (01) ==
LOC: JERFT 17:31
PROC: 3E0F7GC Introduction of Other Therapeutic Substance into Respiratory Tract, Via Natural or Artificial Opening (ICD-10-PCS; principal; 2019-10-31)
PROC: 3E033GC Introduction of Other Therapeutic Substance into Peripheral Vein, Percutaneous Approach (ICD-10-PCS; 2019-10-31)
DX: J45.901 Unspecified asthma with (acute) exacerbation (principal); Z87.891 Personal history of nicotine dependence; F32.9 Major depressive disorder, single episode, unspecified
CPT/HCPCS: 99281-25

== ENCOUNTER 2021-05-28 16:45 | Inpatient (IN) | payer OTHER ==
[2021-05-28] MEDS ORDERED: SODIUM CHLORIDE 1,000 ML IV STA (17:48)
[2021-05-28] MEDS ORDERED: KETOROLAC TROMETHAMINE 30 MG/1 ML VIAL IVPUSH ONE (17:48)
[2021-05-28] MEDS ORDERED: ACETAMINOPHEN 1000 MG/100 ML VIAL (NON FORMULARY) IVPB ONE (17:48)
[2021-05-28] MEDS ORDERED: ONDANSETRON 4 MG/2 ML VIAL IVPUSH ONE (17:48)
[2021-05-28] MEDS ORDERED: ACETAMINOPHEN INJECTION 100 ML IVPB ONE (17:57)
[2021-05-28] MEDS ORDERED: ONDANSETRON 4 MG/2 ML VIAL ONE (17:57)
[2021-05-28] MEDS ORDERED: KETOROLAC TROMETHAMINE 30 MG/1 ML VIAL ONE (17:57)
[2021-05-28] MEDS ORDERED: CEFTRIAXONE 1,000 MG in DEXTROSE 5%-WATER - 50 ML IVPB ONE (18:25)
[2021-05-28] MEDS ORDERED: metroNIDAZOLE 500 MG TABLET PO ONE (18:26)
[2021-05-28 18:50] LABS: BASO % 0.7 % (0-2.0); EOS % 0.1 % (0-4.5); HEMATOCRIT 33.5 % (32.4-45.2); HEMOGLOBIN 11.3 GM/dL (10.7-15.3); LYMPH % 17.4 % (8-40); MCH 27.3 pg (25.7-33.7); MCHC 33.9 g/dl (32.0-36.0); MEAN CELL VOLUME 80.6 fl (80-96); MEAN PLT VOLUME 7.9 fl (7.5-11.1); MONO % 12.8 % (3.8-10.2); PLATELET COUNT 260 10^3/uL (134-434); RBC 4.15 M/mm3 (3.60-5.2); WHITE BLOOD COUNT 8.8 K/mm3 (4.0-10.0)
[2021-05-28 19:10] LABS: CALCIUM 8.2 mg/dL (8.5-10.1)
[2021-05-28 19:11] LABS: ALBUMIN 3.1 g/dl (3.4-5.0); BLOOD UREA NITROGEN 7.8 mg/dL (7-18)
[2021-05-28 19:14] LABS: CREATININE 0.9 mg/dL (0.55-1.3); EPI CELLS 25 /uL (0-25.1); HCG,QUALITATIVE URINE Negative; HYALINE CASTS 3 /uL (0-3.1); URINE APPEARANCE CLOUDY; URINE BACTERIA >9,000 /uL (0-1359); URINE BILIRUBIN NEGATIVE (NEGATIVE); URINE COLOR DK YELLOW; URINE GLUCOSE (UA) NEGATIVE (NEGATIVE); URINE KETONE 1+ (NEGATIVE); URINE LEUK ESTERASE 2+ (NEGATIVE); URINE NITRITE POSITIVE (NEGATIVE); URINE PROTEIN 1+ (NEGATIVE); URINE WBC 172 /uL (0-25.8)
[2021-05-28 19:15] LABS: BILIRUBIN,TOTAL 0.7 mg/dL (0.2-1); TOT PROT 7.4 g/dl (6.4-8.2)
[2021-05-28] MEDS ORDERED: CEFTRIAXONE 1 GM/50 ML BAG ONE (19:49)
[2021-05-28] MEDS ORDERED: metroNIDAZOLE 250 MG TABLET ONE (19:49)
[2021-05-28 20:11] LABS: ANISOCYTOSIS 1+; MACROCYTOSIS 1+; PLATELET ESTIMATE NORMAL
[2021-05-28] MEDS ORDERED: METOCLOPRAMIDE HCL INJECTION 10 MG/2 ML VIAL IVPUSH ONE (20:20)
[2021-05-28] MEDS ORDERED: SODIUM CHLORIDE 0.9% 500 ML INFUS.BAG IV ONE (20:20)
[2021-05-28] MEDS ORDERED: METOCLOPRAMIDE HCL INJECTION 10 MG/2 ML VIAL ONE (21:51)
[2021-05-28 22:17] LABS: URINE RBC 45.8 /uL (0-23.9)
[2021-05-29] MEDS ORDERED: CEFTRIAXONE 1 GM in DEXTROSE 5%-WATER - 50 ML IVPB ONE ×2 (04:27→12:30)
[2021-05-29] MEDS ORDERED: SODIUM CHLORIDE 1,000 ML with POTASSIUM CHLORIDE 40 MEQ IV SCH (04:30)
[2021-05-29] MEDS: SODIUM CHLORIDE 1,000 ML IV SCH ×2 (05:25→13:30)
[2021-05-29] MEDS ORDERED: CEFTRIAXONE 1 GM/50 ML BAG ONE (05:27)
[2021-05-29] MEDS ORDERED: ACETAMINOPHEN 1000 MG/100 ML VIAL (NON FORMULARY) IVPB ONE (06:31)
[2021-05-29] MEDS: ENOXAPARIN NA (PORCINE) 40 MG/0.4 ML DISP.SYRIN SQ SCH (09:56)
[2021-05-29] MEDS ORDERED: methaDONE HCL 40 MG DISPERSABLE TABLET PO SCH (10:45)
[2021-05-29] MEDS ORDERED: methaDONE HCL 40 MG DISPERSABLE TABLET ONE (10:48)
[2021-05-29] MEDS ORDERED: methaDONE HCL 10 MG TABLET ONE (10:48)
[2021-05-29] MEDS: methaDONE 80 MG, methaDONE 20 MG PO SCH (10:52)
[2021-05-29 12:22] VITALS: BMI 36.0
[2021-05-29] MEDS ORDERED: cefTRIAXone SODIUM 1 GM VIAL ONE (13:15)
[2021-05-29] MEDS ORDERED: DEXTROSE 5%-WATER - 50 ML IVPB ONE (13:15)
[2021-05-29] MEDS: traZODone HCL 50 MG TABLET (FP) PO SCH (21:33)
[2021-05-29] MEDS ORDERED: traZODone HCL 50 MG TABLET (FP) PO SCH (22:00)
[2021-05-30] MEDS ORDERED: methaDONE HCL 10 MG TABLET ONE (05:16)
[2021-05-30] MEDS ORDERED: methaDONE HCL 40 MG DISPERSABLE TABLET ONE (05:16)
[2021-05-30] MEDS: methaDONE 80 MG, methaDONE 20 MG PO SCH (06:15)
[2021-05-30 08:49] LABS: BASO % 0.7 % (0-2.0); EOS % 1.4 % (0-4.5); HEMATOCRIT 30.3 % (32.4-45.2); HEMOGLOBIN 10.4 GM/dL (10.7-15.3); LYMPH % 35.1 % (8-40); MCH 27.7 pg (25.7-33.7); MCHC 34.4 g/dl (32.0-36.0); MEAN CELL VOLUME 80.5 fl (80-96); MEAN PLT VOLUME 7.6 fl (7.5-11.1); MONO % 13.1 % (3.8-10.2); NEUT % 49.7 % (42.8-82.8); PLATELET COUNT 255 10^3/uL (134-434); RBC 3.76 M/mm3 (3.60-5.2); RDW 14.5 % (11.6-15.6); WHITE BLOOD COUNT 5.5 K/mm3 (4.0-10.0)
[2021-05-30] MEDS ORDERED: DEXTROSE 5%-WATER 100 ML IVPB ONE (08:56)
[2021-05-30] MEDS: ENOXAPARIN NA (PORCINE) 40 MG/0.4 ML DISP.SYRIN SQ SCH (09:06)
[2021-05-30] MEDS: CEFTRIAXONE 2 GM in DEXTROSE 5%-WATER 2 GM/100 ML BAG IVPB SCH (09:06)
[2021-05-30] MEDS: FLUoxetine HCL 20 MG CAPSULE PO SCH (09:07)
[2021-05-30 09:18] LABS: CALCIUM 7.8 mg/dL (8.5-10.1)
[2021-05-30 09:19] LABS: ALBUMIN 2.5 g/dl (3.4-5.0); BLOOD UREA NITROGEN 6.2 mg/dL (7-18); MAGNESIUM 1.9 mg/dL (1.8-2.4)
[2021-05-30 09:22] LABS: CREATININE 0.9 mg/dL (0.55-1.3); PHOSPHOROUS 3.6 mg/dL (2.5-4.9)
[2021-05-30 09:23] LABS: BILIRUBIN,TOTAL 0.2 mg/dL (0.2-1); TOT PROT 6.3 g/dl (6.4-8.2)
[2021-05-30 10:43] LABS: ANISOCYTOSIS 2+; MACROCYTOSIS 0; PLATELET ESTIMATE NORMAL
[2021-05-30] MEDS: traZODone HCL 50 MG TABLET (FP) PO SCH (21:01)
[2021-05-31] MEDS ORDERED: methaDONE HCL 10 MG TABLET ONE (05:36)
[2021-05-31] MEDS ORDERED: methaDONE HCL 40 MG DISPERSABLE TABLET ONE (05:37)
[2021-05-31] MEDS: methaDONE 80 MG, methaDONE 20 MG PO SCH (05:46)
[2021-05-31] MEDS: FLUoxetine HCL 20 MG CAPSULE PO SCH (07:00)
[2021-05-31] MEDS ORDERED: DEXTROSE 5%-WATER 100 ML IVPB ONE (08:30)
[2021-05-31] MEDS: ENOXAPARIN NA (PORCINE) 40 MG/0.4 ML DISP.SYRIN SQ SCH (09:33)
[2021-05-31] MEDS: CEFTRIAXONE 2 GM in DEXTROSE 5%-WATER 2 GM/100 ML BAG IVPB SCH (09:33)
[2021-05-31 15:23] VITALS: BP 109/66; PULSE 76; TEMP 97.8
== END 2021-05-31 16:27 | disposition home or self-care (01) | DRG 463 ==
LOC: JER 16:45 → JERBED 20:20 → J7W 05-29 05:46
PROVIDERS: ADMIT Internal Medicine; ATTEND Internal Medicine
DX: N10 Acute pyelonephritis (principal); J45.909 Unspecified asthma, uncomplicated; F11.20 Opioid dependence, uncomplicated; F32.9 Major depressive disorder, single episode, unspecified; R94.31 Abnormal electrocardiogram [ECG] [EKG]; B96.20 Unspecified Escherichia coli [E. coli] as the cause of diseases classified elsewhere
CPT/HCPCS: 36415; 74177-TC; 76830-TC; 80053; 81003; 83690; 83735; 84100; 84703; 85025; 87086; 87186; 93005; 93010; 99285-25; C9803; J0131; U0003; U0005

== ENCOUNTER 2021-10-21 10:10 | Emergency (ER) | payer OTHER ==
[2021-10-21 10:39] VITALS: BP 99/60; PULSE 79; TEMP 97.4; BMI 32.9
[2021-10-21] MEDS ORDERED: diphenhydrAMINE HCL 25 MG CAPSULE (FP) PO ONE ×2 (12:12→12:22)
[2021-10-21] MEDS ORDERED: DEXAMETHASONE LIQUID 0.5 MG/5 ML PO ONE (12:13)
[2021-10-21] MEDS ORDERED: DEXAMETHASONE SOD PHOSPHATE 10 MG/1 ML VIAL ONE (12:22)
[2021-10-21 12:33] LABS: EPI CELLS >36 /uL (0-25.1); HYALINE CASTS 3 /uL (0-3.1); PH,URINE 6.5 (5.0-8.0); URINE APPEARANCE CLOUDY; URINE BACTERIA >9,000 /uL (0-1359); URINE BILIRUBIN NEGATIVE (NEGATIVE); URINE COLOR YELLOW; URINE GLUCOSE (UA) NEGATIVE (NEGATIVE); URINE KETONE NEGATIVE (NEGATIVE); URINE LEUK ESTERASE 1+ (NEGATIVE); URINE NITRITE POSITIVE (NEGATIVE); URINE PROTEIN NEGATIVE (NEGATIVE); URINE RBC 58 /uL (0-23.9); URINE UROBILINOGEN 0.2 mg/dL (0.2-1.0); URINE WBC 203 /uL (0-25.8)
== END 2021-10-21 13:22 | disposition home or self-care (01) ==
LOC: JERFT 10:10
DX: N30.00 Acute cystitis without hematuria (principal); L25.9 Unspecified contact dermatitis, unspecified cause
CPT/HCPCS: 36415; 81003; 84703; 87086; 87186; 87491; 87591; 99283-25

== ENCOUNTER 2022-05-05 11:24 | Emergency (ER) | payer OTHER ==
[2022-05-05 11:50] VITALS: TEMP 98.3; BMI 34.7
[2022-05-05 13:04] LABS: BASO % 0.5 % (0-2.0); EOS % 5.3 % (0-4.5); HEMATOCRIT 35.3 % (32.4-45.2); LYMPH % 36.4 % (8-40); MEAN CELL VOLUME 79.5 fl (80-96); MEAN PLT VOLUME 7.5 fl (7.5-11.1); MONO % 7.3 % (3.8-10.2); NEUT % 50.5 % (42.8-82.8); PLATELET COUNT 259 10^3/uL (134-434); RBC 4.43 M/mm3 (3.60-5.2); RDW 14.5 % (11.6-15.6); WHITE BLOOD COUNT 6.3 K/mm3 (4.0-10.0)
[2022-05-05 13:13] LABS: INR 1.03 (0.83-1.09); PROTHROMBIN TIME (PATIENT) 11.8 SEC (9.7-13.0)
[2022-05-05 13:19] LABS: ALBUMIN 3.5 g/dl (3.4-5.0); BLOOD UREA NITROGEN 18.2 mg/dL (7-18); CALCIUM 8.5 mg/dL (8.5-10.1)
[2022-05-05 13:22] LABS: CREATININE 0.9 mg/dL (0.55-1.3)
[2022-05-05 13:24] LABS: BILIRUBIN,TOTAL 0.2 mg/dL (0.2-1); TOT PROT 7.3 g/dl (6.4-8.2)
[2022-05-05 17:54] VITALS: BP 95/65; PULSE 77
== END 2022-05-05 17:55 | disposition home or self-care (01) ==
LOC: JER 11:24
DX: H60.92 Unspecified otitis externa, left ear (principal)
CPT/HCPCS: 36415; 70491-TC; 80053; 84703; 85025; 85610; 85730; 99285-25; Q9967